=== PATIENT | female | born 1960 | race Caucasian/White ===

== ENCOUNTER 2021-09-24 10:25 | Outpatient (CLI) | payer MEDICARE, MEDICAID, SELFPAY ==
[2021-09-24 14:25] LABS: Chloride* 104 mmol/L (96-114); Potassium* 4.5 mmol/L (3.6-5.1); Sodium* 139 mmol/L (135-149)
[2021-09-24 14:28] LABS: Alanine Aminotransferase* 22 U/L (4-35); Alkaline Phosphatase* 132 U/L (40-150); Aspartate Amino Transferase* 22 U/L (12-35); Bilirubin Total* 0.4 mg/dL (0.1-1.5); Blood Urea Nitrogen* 24 mg/dL (7-30); Carbon Dioxide* 29 mmol/L (20-32); Creatinine* 0.9 mg/dL (0.5-1.5); Estimated Glomerular Filt Rate 73 ml/min; Glucose* 119 mg/dL (60-115)
[2021-09-24 14:29] LABS: Calcium* 9.3 mg/dL (8.4-10.6)
[2021-09-26 04:38] LABS: LDL Cholesterol, Direct 123 mg/dL (0-129)
== END 2021-09-24 10:26 | disposition home or self-care (01) ==
PROVIDERS: PCP Physician Assistant Medical; Visit Provider Family Medicine
DX: E11.9 Type 2 diabetes mellitus without complications (principal); E78.5 Hyperlipidemia, unspecified; Z01.818 Encounter for other preprocedural examination
CPT/HCPCS: 80053; 83721

== ENCOUNTER 2021-09-28 09:15 | Outpatient (CLI) | payer MEDICARE, MEDICAID, SELFPAY ==
[2021-09-28 10:06] LABS: SARS PCR* Negative SARS-CoV-2 (Negative)
== END 2021-09-28 09:16 | disposition home or self-care (01) ==
LOC: FRMREF 09:30
PROVIDERS: PCP Physician Assistant Medical; Visit Provider Obstetrics & Gynecology
DX: Z20.822 Contact with and (suspected) exposure to COVID-19 (principal); Z01.812 Encounter for preprocedural laboratory examination
CPT/HCPCS: 87635

== ENCOUNTER 2021-09-29 07:33 | Day surgery (SDC) | payer MEDICARE, MEDICAID, SELFPAY ==
[2021-09-29] MEDS: LACTATED RINGERS 1000 ML 1,000 ML 100 ML IV (07:30)
[2021-09-29 07:45] VITALS: BP 182/79; PULSE 89; RESP 16; TEMP 36.6; O2SAT 99; BMI 48.6
--- NOTE | 2021-09-29 08:51 | PM.PROC ---
Procedure Note Time Seen by Provider: 08:51 Date Seen: 09/29/21 Date of procedure: 09/29/21 Will [facility] bill your pro fee for this procedure?: Yes Procedure: Preoperative diagnosis: 60-year-old nulligravid woman with history of endometrioid adenocarcinoma status post hysterectomy. Here for exam under anesthesia as she does not tolerate pelvic exams in the office. Postoperative diagnosis: Same Procedure: Pelvic exam under anesthesia Anesthesia: Mac Surgeon: Destini Cortez Outdoor [employer]ursuits Instructor: Not applicable IV Fluid: 200ml Estimated blood loss: 0 mL Findings: Speculum: Atrophic vaginal tissue with decreased Rugae c/w her postmenopausal state, no lesions, masses, bleeding or abnormal discharge identified. Bimanual exam: no nodularity via vaginal and rectovaginal exam. Normal exam. Procedure: Clean was taken to the operating room where conscious sedation was found be adequate. She was placed in the dorsal lithotomy position. A sterile, bivalve, metal speculum was placed in the vagina to visualize the vaginal cuff and vaginal romero which appeared normal and somewhat atrophic consistent with her menopausal state. No lesions or masses were visualized. A vaginal and rectal vaginal exam were performed with findings above. The patient was awakened from anesthesia and taken to the recovery room in stable condition. Surgeon: Destini Cortez MD
[2021-09-29 09:22] VITALS: BP 127/78; PULSE 82; RESP 16; TEMP 36.1; O2SAT 96
--- NOTE | 2021-09-29 09:22 | W.ANESCHARGE ---
Anesthesia Charges Start Date/Time Anesthesia Start Date: 09/29/21 Anesthesia Start Time: 09:05 Stop Date/Time Anesthesia Stop Date: 09/29/21 Anesthesia Stop Time: : Summary Emergency: No
[2021-09-29 09:30] VITALS: BP 118/85; PULSE 92; RESP 16; O2SAT 96
[2021-09-29 09:45] VITALS: BP 133/79; PULSE 86; RESP 16; O2SAT 96
--- NOTE | 2021-09-29 10:41 | W.ANESCHARGE ---
Anesthesia Charges Start Date/Time Anesthesia Start Date: 09/29/21 Anesthesia Start Time: 09:05 Stop Date/Time Anesthesia Stop Date: 09/29/21 Anesthesia Stop Time: : Summary Emergency: No
== END 2021-09-29 10:14 | disposition home or self-care (01) ==
PROVIDERS: PCP Physician Assistant Medical; Visit Provider Obstetrics & Gynecology
PROC: (CPT 57410; principal; 2021-09-29 08:50)
DX: N95.2 Postmenopausal atrophic vaginitis (principal); Z85.42 Personal history of malignant neoplasm of other parts of uterus; Z90.710 Acquired absence of both cervix and uterus
CPT/HCPCS: 57410; 940; J2704; J7120

== ENCOUNTER 2021-10-29 13:51 | Outpatient (CLI) | payer MEDICARE, MEDICAID, SELFPAY ==
[2021-10-29 22:02] LABS: Uric Acid* 6.4 mg/dL (2.2-8.4)
[2021-10-29 22:07] LABS: Microalbumin Urine < 1 mg/dL
[2021-10-29 22:16] LABS: Creatinine Urine 33.3 mg/dL; Microalbumin Creatinine Ratio 30 mg/g (0-30)
== END 2021-10-29 13:52 | disposition home or self-care (01) ==
PROVIDERS: PCP Physician Assistant Medical; Visit Provider Internal Medicine Nephrology
DX: N18.1 Chronic kidney disease, stage 1 (principal); I10 Essential (primary) hypertension; E66.01 Morbid (severe) obesity due to excess calories; E11.9 Type 2 diabetes mellitus without complications
CPT/HCPCS: 82043; 82310; 82570; 83970; 84550

== ENCOUNTER 2021-11-02 11:50 | Outpatient (CLI) | payer MEDICARE, MEDICAID, SELFPAY | END 2021-11-02 11:51 | disposition home or self-care (01) | LOC: FRMREF 11:50 | PROVIDERS: PCP Physician Assistant Medical; Visit Provider Internal Medicine Nephrology | DX: E11.9 Type 2 diabetes mellitus without complications (principal); I10 Essential (primary) hypertension; E78.5 Hyperlipidemia, unspecified; E66.01 Morbid (severe) obesity due to excess calories | CPT/HCPCS: 82310; 83970 ==

== ENCOUNTER 2021-11-03 13:34 | Outpatient (CLI) | payer MEDICARE, MEDICAID, SELFPAY ==
[2021-11-12 13:47] LABS: Hours Collected 24 hr; Total Volume 2800 mL; Urine Supersaturation Interp Normal; pH, Urine 6.67 (5.00-7.50)
== END 2021-11-03 13:35 | disposition home or self-care (01) ==
PROVIDERS: PCP Physician Assistant Medical; Visit Provider Internal Medicine Nephrology
DX: E11.22 Type 2 diabetes mellitus with diabetic chronic kidney disease (principal); N18.1 Chronic kidney disease, stage 1; I10 Essential (primary) hypertension; E78.5 Hyperlipidemia, unspecified
CPT/HCPCS: 82340; 82436; 82507; 83735; 83945; 83986; 84105; 84133; 84300; 84392; 84560

== ENCOUNTER 2021-12-10 13:44 | Outpatient (CLI) | payer MEDICARE, MEDICAID, SELFPAY ==
--- OUTSIDE RECORDS SUMMARY | 2021-12-10 13:52 | XMS_ITS | Encounter Summary ---
:1960 Author Organization [facility] Address [address] [place] [address] Care Team Providers Name Role Phone Unavailable Primary Care Provider Unavailable Reason for Referral Specialty Diagnoses / Procedures Referred By Contact Refer red To Contact Kala Langford M.D. 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 [address] [place], [place] [phone] (Wo rk) Social History Tobacco Use Types Packs/Day Years Used Date Smoking Tobacco: Never Assessed Sex Assigned at Date Recorded Not on file documented as of this encounter Plan of Treatment Scheduled Referrals Name Type Priority Associated Order Schedule Diagnoses Covid immunization Outpatient Referral Routine Ex pected: office visit Booster 021 (Approximate), Expires: 12/16/2021 documented as of this encounter Visit Diagnoses Not on filedocumented in this encounter
--- OUTSIDE RECORDS SUMMARY | 2021-12-10 13:52 | XMS_ITS | Encounter Summary ---
:1960 Author Organization [facility] Address [address] [place] [address] Care Team Providers Name Role Phone Unavailable Primary Care Provider Unavailable Reason for Visit Appointment Request (Routine) - Closed Specialty Diagnoses / Procedures Referred By Contact Refer red To Contact Nephrology and Hypertension Referral ID Status Reason Start Date Expiration Date Visits Requ ested Visits Authorized [id number] Closed 10/30/2021 10/30/2022 1 Encounter Details Date Type Department Care Team Description 11/10/2021 External Outreach Division of Sofi, Hyperti on And Chronic Kidney Disease Stage 1 (Primary Dx); Nephrology and Jun Peguero Jr., Diabetes [place] litus Type 2 (HCC); Hypertension in [place]. Urolithiasis; [place], [place] [address] [facility] Trisomy 21 (HCC) [address] [place] [phone] Social History Tobacco Use Types Packs/Day Years Used Date Smoking Tobacco: Never Assessed Sex Assigned at Date Recorded Not on file documented as of this encounter Last Filed Vital Signs Vital Sign Reading Time Taken Comments Blood Pressure 138/72 11/10/2021 10:25 AM CDT Pulse 76 11/10/2021 10:25 AM CDT Temperature - - Respiratory Rate - - Oxygen Saturation - - Inhaled Oxygen Concentration - - Weight 121 kg (266 lb 12.1 oz) 11/10/2021 10:25 AM CDT Height 158.7 cm (5' 2.48) 11/10/2021 10:25 AM CDT Body Mass Index 48.04 11/10/2021 10:25 AM CDT documented in this encounter Progress Notes Jun Farah Jr., D.O. - 11/10/2021 10:30 AM CDT Referring Provider: No primary care provider on file. SUBJECTIVE REASON FOR VISIT [place] [facility] Follow-up regards CKD stage 1, hypertension, urolithiasis, diabetes mellitus HISTORY OF PRESENT ILLNESS Ms. Ibarar is a 60 y.o. female who presents with the above issue She has done well, she did pass a very small stone 2 weeks ago which caused some left-sided flank pain for approximately 2 hours. No hematuria. She feels absolutely well now without any complaints. No hypoglycemic events in her hemoglobin A1c is acceptable. No orthostatic issues and no lower extremity swelling, blood pressure is 120/80. She is had no issues with skin lesions, or other constitutional complaints. History reviewed. No pertinent past medical history. Current Outpatient Medications: hydroCHLOROthiazide (HYDRODIURIL) 12.5 mg tablet, Take 1 tablet (12.5 mg total) by mouth daily., Disp: 90 tablet, Rfl: 3 acetaminophen (TYLENOL) 500 mg tablet, Take 2 tablets by mouth 2 (two) times a day as needed. Pain/fever, Disp: , Rfl: allopurinoL (ZYLOPRIM) 100 mg tablet, TAKE 1 TABLET BY MOUTH ONE TIME DAILY, Disp: 90 tablet, Rfl: 3 gabapentin (NEURONTIN) 100 mg capsule, Take 1 capsule (100 mg total) by mouth 2 (two) times a day.,Disp: 180 capsule, Rfl: 3 metFORMIN (GLUCOPHAGE) 500 mg tablet, Take 0.5 tablets (250 mg total) by mouth daily with breakfast., Disp: 45 tablet, Rfl: 3 omega-3 fatty acids/fish oil (OMEGA 3 FISH OIL ORAL), Take 1 capsule by mouth daily. 1000mg capsule, Disp: , Rfl: omeprazole (PriLOSEC) [address] capsule, TAKE 1 CAPSULE BY MOUTH TWICE DAILY, Disp: 180 capsule, Rfl: 3 potassium citrate (UROCIT-K) 10 mEq (1,080 mg) ER tablet, Take 2 tablets (20 mEq total) by mouth 2 (two) times a day with meals., Disp: 360 tablet, Rfl: 3 sucralfate (CARAFATE) 1 gram tablet, Take 1 tablet (1 g total) by mouth every 6 (six) hours., Disp:360 tablet, Rfl: 3 tamsulosin (FLOMAX) 0.4 mg 24 hr capsule, Take 1 capsule by mouth daily. use on at first sign of flank pain for easing passage of kidney stones, Disp: , Rfl: REVIEW OF SYSTEMS All other systems reviewed and are negative. OBJECTIVE BP 138/72 Pulse 76 Ht 158.7 cm Wt 121 kg BMI 48.04 kg/m?? PHYSICAL EXAMINATION General: Awake alert oriented HEENT: FADI, EOMI, Mucous membranes moist, no oral lesions Neck: No Masses, No Bruits Lungs: Clear to ascultation Heart: Regular Rate and Rhythm, No ectopy Murmurs or rubs Abdomen: Soft, Non-tender Extremities: No cyanosis, No clubbing: No edema Neuro: Cranial Nerves intact, Gait is normal, strength grossly normal Skin: no suspicious lesions identified Psychiatric: Normal affect DIAGNOSTICS Note serum creatinine 1.0 mg/dL, microalbumin to creatinine ratio 30 milligrams/gram, 24 hour urine super saturation study reviewed ASSESSMENT / PLAN #1 Hypertension And Chronic Kidney Disease Stage 1 Goal blood pressure has been achieved, she is avoiding sodium, staying active. We will continue withher current antihypertensive regimen. She will avoid NSAIDs and Holloway 2 inhibitors. #2 Diabetes Mellitus Type 2 (HCC) Excellent glycemic control. #3 Urolithiasis This appears to be metabolically active and surgically inactive currently. We will continue with thefollowing recommendations: 1. Goal fluid intake of 1 gal per day 2. Low-sodium diet 3. Continue on Urocit-K, 1 tablet daily 4. Tamsulosin refilled to utilized if she has stone activity 5. Low oxalate diet #4 Trisomy 21 (HCC) No issues, congratulated her on her 60th birthday coming up tomorrow. Total time: 30 minutes Counseling Time: 20 minutes Jun Farah Jr., D.O. documented in this encounter Plan of Treatment Not on filedocumented as of this encounter Visit Diagnoses Diagnosis Hypertension And Chronic Kidney Disease Stage 1 - Primary Diabetes Mellitus Type 2 (HCC) Urolithiasis Trisomy 21 (HCC) documented in this encounter
--- OUTSIDE RECORDS SUMMARY | 2021-12-10 13:52 | XMS_ITS | Encounter Summary ---
:1960 Author Organization [facility] Address [address] [place] [address] Care Team Providers Name Role Phone Unavailable Primary Care Provider Unavailable Reason for Visit Reason Comments Med Refill Encounter Details Date Type Department Care Team Description 12/27/2020 Refill Division of Nephrology and Soif, Axel Peguero Jr., Med [facility]ill [facility] [address] [facility] [address] [place] [address] [place] [address] [phone] Social History Tobacco Use Types Packs/Day Years Used Date Smoking Tobacco: Never Assessed Sex Assigned at Date Recorded Not on file documented as of this encounter Plan of Treatment Not on filedocumented as of this encounter Visit Diagnoses Not on filedocumented in this encounter
--- OUTSIDE RECORDS SUMMARY | 2021-12-10 13:52 | XMS_ITS | Encounter Summary ---
:1960 Author Organization [facility] Address [address] [place] [address] Care Team Providers Name Role Phone Unavailable Primary Care Provider Unavailable Reason for Visit Reason Comments Med Refill Encounter Details Date Type Department Care Team Description 02/07/2021 Refill Division of Nephrology and Sofi, xAel Peguero Jr., Med Refill [facility] [address] [facility] [address] [place] [address] [place] [address] [phone] Social History Tobacco Use Types Packs/Day Years Used Date Smoking Tobacco: Never Assessed Sex Assigned at Date Recorded Not on file documented as of this encounter Plan of Treatment Not on filedocumented as of this encounter Visit Diagnoses Not on filedocumented in this encounter
--- OUTSIDE RECORDS SUMMARY | 2021-12-10 13:52 | XMS_ITS | Encounter Summary ---
:1960 Author Organization [facility] Address [address] [place] [address] Care Team Providers Name Role Phone Unavailable Primary Care Provider Unavailable Encounter Details Date Type Department Care Team Description 12/16/2020 Orders Only RST PCP HL[facility] Kala Childers M.D. [address] [place], [place] [phone] (Wo rk) Social History Tobacco Use Types Packs/Day Years Used Date Smoking Tobacco: Never Assessed Sex Assigned at Date Recorded Not on file documented as of this encounter Plan of Treatment Not on filedocumented as of this encounter Visit Diagnoses Not on filedocumented in this encounter
--- OUTSIDE RECORDS SUMMARY | 2021-12-10 13:52 | XMS_ITS | Encounter Summary ---
:1960 Author Organization [facility] Address [address] [place] [address] Care Team Providers Name Role Phone Unavailable Primary Care Provider Unavailable Encounter Details Date Type Department Care Team Description 12/19/2020 Orders Only RST PCP HLTH Kala Childers M.D. [address] [place], [place] [phone] (Wo rk) Social History Tobacco Use Types Packs/Day Years Used Date Smoking Tobacco: Never Assessed Sex Assigned at Date Recorded Not on file documented as of this encounter Plan of Treatment Not on filedocumented as of this encounter Visit Diagnoses Not on filedocumented in this encounter
--- OUTSIDE RECORDS SUMMARY | 2021-12-10 13:52 | XMS_ITS | Encounter Summary ---
:1960 Author Organization [facility] Address [address] [place] [address] Care Team Providers Name Role Phone Unavailable Primary Care Provider Unavailable Encounter Details Date Type Department Care Team Description 05/19/2021 Orders Only Division of Nephrology and Axel Farah Hypertension in [facility], D.O. [place] [address] [facility] [address] [place] [phone] (Wo rk) Social History Tobacco Use Types Packs/Day Years Used Date Smoking Tobacco: Never Assessed Sex Assigned at Date Recorded Not on file documented as of this encounter Plan of Treatment Not on filedocumented as of this encounter Visit Diagnoses Not on filedocumented in this encounter
--- OUTSIDE RECORDS SUMMARY | 2021-12-10 13:52 | XMS_ITS | Encounter Summary ---
:1960 Author Organization [facility] Address [address] [place] [address] Care Team Providers Name Role Phone Unavailable Primary Care Provider Unavailable Reason for Visit Reason Comments Med Refill Encounter Details Date Type Department Care Team Description 11/10/2021 Refill Division of Nephrology and Colleen Waddell, Med [place] Ph[place]D. [address] [place] [address] [place] [address] [phone] Social History Tobacco Use Types Packs/Day Years Used Date Smoking Tobacco: Never Assessed Sex Assigned at Date Recorded Not on file documented as of this encounter Plan of Treatment Not on filedocumented as of this encounter Visit Diagnoses Not on filedocumented in this encounter
--- OUTSIDE RECORDS SUMMARY | 2021-12-10 13:52 | XMS_ITS | Encounter Summary ---
:1960 Author Organization [facility] Address [address] [place] [address] Care Team Providers Name Role Phone Unavailable Primary Care Provider Unavailable Reason for Visit Reason Comments Med Refill Encounter Details Date Type Department Care Team Description 02/10/2021 Refill Division of Nephrology and Colleen Waddell, Med [place]. [address] [place] [address] [place] [address] [phone] Social History Tobacco Use Types Packs/Day Years Used Date Smoking Tobacco: Never Assessed Sex Assigned at Date Recorded Not on file documented as of this encounter Miscellaneous Notes Telephone Encounter - Alayna Berry - 02/10/2021 7:54 AM CST Medication refill request for Metformin HCI 500 mg tab. Forwarded to nurses. 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
--- OUTSIDE RECORDS SUMMARY | 2021-12-10 13:52 | XMS_ITS | Clinical Summary ---
:1960 Author Organization [facility] Address [address] [place] [address] Care Team Providers Name Role Phone Unavailable Primary Care Provider Unavailable Source Comments Patient records contain information from all sites at [facility]. For routine questions regarding patient records, call [phone] during business hours, M-F 8:00 AM - 5:00 PM Central Time. Record requests for emergency care only can be directed to [phone] at any time.[facility] Allergies No known active allergies Medications Medication Sig Dispensed Refills Start End Date Status Date acetaminophen (TYLENOL) Take 2 0 Active 500 mg tablet tablets by 3 mouth 2 (two) times a day as needed. Pain/fever omega-3 fatty acids/fish Take 1 0 Active oil (OMEGA 3 FISH OIL capsule by 3 ORAL) mouth daily. 1000mg capsule allopurinoL (ZYLOPRIM) TAKE 1 90 tablet 3 Active 100 mg tablet TABLET BY 1 MOUTH ONE TIME DAILY omeprazole (PriLOSEC) 20 TAKE 1 180 capsule [address] capsule CAPSULE BY 2 MOUTH TWICE DAILY metFORMIN (GLUCOPHAGE) Take 0.5 45 tablet 3 Active 500 mg tablet tablets 2 (250 mg total) by mouth daily with breakfast. hydroCHLOROthiazide Take 1 90 tablet 3 05/20/19 Active (HYDRODIURIL) 12.5 mg tablet 2 23 tablet (12.5 mg total) by mouth daily. potassium citrate Take 2 90 tablet 3 Ac tive (UROCIT-K) 10 mEq (1,080 tablets (20 2 mg) ER tablet mEq total) by mouth daily with breakfast. tamsulosin (FLOMAX) 0.4 Take 1 10 capsule 2 Active mg 24 hr capsule capsule 2 (0.4 mg total) by mouth daily. use on at first sign of flank pain for easing passage of kidney stones gabapentin (NEURONTIN) Take 1 180 capsule 3 11/12 Active 100 mg capsule capsule 2 23 (100 mg total) by mouth 2 (two) times a day. sucralfate (CARAFATE) 1 Take 1 360 tablet 3 11/19 gram tablet tablet (1 g 1 22 total) by mouth every 6 (six) hours. gabapentin (NEURONTIN) Take 1 180 capsule 3 11/12 Discontinued 100 mg capsule capsule 1 22 (100 mg total) by mouth 2 (two) times a day. Active Problems Problem Noted Date Trisomy 21 11/10/2021 Hypertension And Chronic Kidney Disease Stage 1 2017 Urolithiasis 06/29/2017 Diabetes Mellitus Type 2 12/17/2015 Encounters Date Type Specialty Care Team Description 11/10/2021 External Outreach Nephrology and Jun Farah rtension And Chronic Kidney Disease Stage 1 (Primary Dx); Hypertension Sudhir Donovan[facility]. [facility] Urolithiasis; Trisomy 21 (HCC ) 11/10/2021 Refill Nephrology and Hayden Osuna, Med Refil l Mark Macias M.D., Ph.D. from Last 3 Months Social History Tobacco Use Types Packs/Day Years Used Date Smoking Tobacco: Never Assessed Sex Assigned at Date Recorded Not on file Last Filed Vital Signs Vital Sign Reading Time Taken Comments Blood Pressure 138/72 11/10/2021 10:25 AM CDT Pulse 76 11/10/2021 10:25 AM CDT Temperature - - Respiratory Rate 16 06/16/2016 1:50 PM Vital sig n result CDT from Clinical No christopher. Oxygen Saturation - - Inhaled Oxygen - - Concentration Weight 121 kg (266 lb 12.1 11/10/2021 10:25 oz) AM CDT Height 158.7 cm (5' 2.48) 11/10/2021 10:25 AM CDT Body Mass Index 48.04 11/10/2021 10:25 AM CDT Plan of Treatment Health Maintenance Due Date Last Done Comments CT Colonography 1960 Cervical Cancer Screening 1960 Cologuard 1960 Colonoscopy 1960 Colorectal Cancer Screening 1960 Creatinine Level 1960 Diabetic Office Visit with Foot 1960 Exam Dilated Eye Exam 1960 FIT 1960 HIV Screening 1960 Hemoglobin A1C 1960 Hepatitis C Screening 1960 Lipid (Cholesterol) Screening 1960 Mammogram 1960 Sodium Level 1960 Urine Albumin 1960 Hepatitis B Vaccines (1 of 3 - 2020 Risk 3-dose series) Depression Screening (Annual 02/07/2021 PHQ-2) Potassium Level 09/15/2021 09/15/2020 Pneumococcal vaccine (0-64 years) 12/16/2021 12/16/2020, (2 - PCV) Office Visit for Blood Pressure 11/10/2022 11/10/2021 Check / Re-check DTaP,Tdap,and Td Vaccines (2 - Td 04/20/2027 04/19/2017, or Tdap) Zoster Vaccines Completed 10/23/2017, 08/07/2017 COVID-19 Vaccine Completed 10/20/2021, 05/10/2021, 12/05/2020, Additional history exists Influenza Vaccine Completed 10/20/2021, 10/28/2020, 10/22/2019, Additional history exists Insurance Payer Benefit Plan Subscriber ID Effective Phone Address Typ e / Group Dates MEDICARE MEDICARE A [id number] 1990-Prese [address] [place] [address] [facility] MEDICAID [id number] 2012-Prese [phone] [place] [id number] [employer] [address] [address] [place] [address]
--- OUTSIDE RECORDS SUMMARY | 2021-12-10 13:52 | XMS_ITS | Encounter Summary ---
:1960 Author Organization [facility] Address [address] [place] [address] Care Team Providers Name Role Phone Unavailable Primary Care Provider Unavailable Reason for Visit Reason Comments Med Refill Encounter Details Date Type Department Care Team Description 02/08/2021 Refill Division of Nephrology and Sofi, Axel Peguero Jr., Med Refill [facility] [address] [facility] [address] [place] [address] [place] [address] [phone] Social History Tobacco Use Types Packs/Day Years Used Date Smoking Tobacco: Never Assessed Sex Assigned at Date Recorded Not on file documented as of this encounter Plan of Treatment Not on filedocumented as of this encounter Visit Diagnoses Not on filedocumented in this encounter
--- OUTSIDE RECORDS SUMMARY | 2021-12-10 13:52 | XMS_ITS | Encounter Summary ---
:1960 Author Organization [facility] Address [address] [place] [address] Care Team Providers Name Role Phone Unavailable Primary Care Provider Unavailable Reason for Visit Appointment Request (Routine) - Closed Specialty Diagnoses / Procedures Referred By Contact Refer red To Contact Nephrology and Hypertension Referral ID Status Reason Start Date Expiration Date Visits Requ ested Visits Authorized [id number] Closed 04/30/2021 04/30/2022 1 Encounter Details Date Type Department Care Team Description 05/19/2021 External Outreach Division of Akira Farah on And Chronic Kidney Disease Stage 1 (Primary Dx); Nephrology and Jun Peguero Jr., Urolithiasis ; Hypertension in [place] Diabetes Mellitus Type 2 (HCC) [place], [place] [address] [facility] [address] [place] [address] [phone] Social History Tobacco Use Types Packs/Day Years Used Date Smoking Tobacco: Never Assessed Sex Assigned at Date Recorded Not on file documented as of this encounter Progress Notes Jun Farah Jr., D.O. - 05/19/2021 10:00 AM CDT Please see scanned in note under document viewer tab for the [facility] outreach visit from this date. Medical Problems Diagnosis List Diabetes Mellitus Type 2 (HCC) Urolithiasis Hypertension And Chronic Kidney Disease Stage 1 documented in this encounter Plan of Treatment Not on filedocumented as of this encounter Visit Diagnoses Diagnosis Hypertension And Chronic Kidney Disease Stage 1 - Primary Urolithiasis Diabetes Mellitus Type 2 (HCC) documented in this encounter
--- OUTSIDE RECORDS SUMMARY | 2021-12-10 13:53 | XMS_ITS | Clinical Summary ---
:1960 Author Organization [facility] Address [address] [place] [address] Care Team Providers Name Role Phone Vidya Arredondo PA-C Primary Care Provider Allergies Active Allergy Reactions Severity Noted Date Comments Propoxyphene 07/28/2020 Medications Medication Sig Dispensed Refills Start Date End Date Status allopurinol (ZYLOPRIM) Take 100 mg by 0 Active 100 MG tablet mouth every morning amoxicillin (AMOXIL) 500 Take 2,000 mg by 0 Active MG tablet mouth daily as needed (1 hour prior to dental appointments) gabapentin (NEURONTIN) Take 100 mg by 0 Active 100 MG capsule mouth 2 times daily glipiZIDE (GLUCOTROL) 5 Take 5 mg by 0 Active MG tablet mouth 2 times daily (before meals) hydrochlorothiazide Take 12.5 mg by 0 Active (MICROZIDE) 12.5 MG mouth every capsule morning metFORMIN (GLUCOPHAGE) Take 250 mg by 0 Active 500 MG tablet mouth every morning (1/2 x 500mg) omeprazole (PRILOSEC) 20 Take 20 mg by [address] capsule mouth daily as needed (pt taking differently than prescribed; RX states 20mg twice daily) potassium citrate Take 10 mEq by 0 Active (UROCIT-K) 10 MEQ (1080 mouth every MG) CR tablet morning tamsulosin (FLOMAX) 0.4 Take 0.4 mg by 0 Active MG capsule mouth daily as needed sucralfate (CARAFATE) 1 Take 1 g by mouth 0 Active GM tablet 4 times daily senna (SENOKOT) 8.6 MG Take 1-3 tablets 30 tablet 0 09/15/2020 Active tabletIndications: by mouth 2 times Endometrial carcinoma daily as needed (H) for constipation Active Problems Problem Noted Date Endometrial carcinoma 07/28/2020 Down's syndrome 07/28/2020 Morbid obesity with BMI of 45.0-49.9, adult 07/28/2020 Diabetes mellitus type II, controlled 07/28/2020 GERD (gastroesophageal reflux disease) 07/28/2020 Gout 07/28/2020 Essential hypertension 07/28/2020 Hyperlipidemia 07/28/2020 Chronic back pain 07/28/2020 Social History Tobacco Use Types Packs/Day Years Used Date Smoking Tobacco: Never Smokeless Tobacco: Never Alcohol Use Standard Drinks/Week Comments Never 0 (1 standard drink = 0.6 oz pure alcoho l) Alcohol Habits Answer Date Recorded How often do you have a drink containing alcohol? Never 09/15/2020 How many drinks containing alcohol do you have on a typical Not asked day when you are drinking? How often do you have six or more drinks on one occasion? No t asked Sex Assigned at Date Recorded Not on file Last Filed Vital Signs Vital Sign Reading Time Taken Comments Blood Pressure 133/71 09/15/2020 11:50 AM CDT Pulse 80 09/15/2020 11:00 AM CDT Temperature 36.1 ??C (97 ??F) 09/15/2020 11:00 AM CDT Respiratory Rate 20 09/15/2020 11:50 AM CDT Oxygen Saturation 99% 09/15/2020 11:50 AM CDT Inhaled Oxygen Concentration - - Weight 119.2 kg (262 lb 11.2 oz) 09/15/2020 7:26 AM CDT Height 157.5 cm (5' 2) 09/15/2020 7:26 AM CDT Body Mass Index 48.05 09/15/2020 7:26 AM CDT Plan of Treatment Health Maintenance Due Date Last Done Comments A1C 1960 ADVANCE CARE PLANNING 1960 ANNUAL REVIEW OF HM ORDERS 1960 CT COLONOGRAPHY 1960 DIABETIC FOOT EXAM 1960 EYE EXAM 1960 FIT-DNA (Cologuard) 1960 FIT 1960 FLEX SIG 1960 LIPID 1960 MICROALBUMIN 1960 COLONOSCOPY 1970 COLORECTAL CANCER SCREENING 1970 HIV SCREENING 11/12/1975 HEPATITIS C SCREENING 1978 MEDICARE ANNUAL WELLNESS 1978 VISIT PAP 1981 MAMMO SCREENING 11/25/2012 11/25/2010, 11/19/2009, 11/13/2008, Additional history exists BMP 05/05/2018 05/05/2017 COVID-19 Vaccine (3 - 07/09/2020 05/14/2020, 04/17/2020 Booster for Moderna series) PHQ-2 (once per calendar 02/07/2021 year) INFLUENZA VACCINE (#1) 2021 10/22/2019, 10/22/2019, 10/08/2018, Additional history exists Pneumococcal Vaccine: 2025 05/08/2014, 05/07/2014, Pediatrics (0 to 5 Years) 10/22/2012 and At-Risk Patients (6 to 64 Years) (3 - PPSV23 if available, else PCV20) DTAP/TDAP/TD IMMUNIZATION 04/20/2027 04/19/2017, 05/01/2007 , (2 - Td or Tdap) 05/01/2007, Additional history exists ZOSTER IMMUNIZATION Completed 10/23/2017, 08/07/2017 IPV IMMUNIZATION Aged Out No longer eligi ble based on patient 's age to complete this topic MENINGITIS IMMUNIZATION Aged Out No longe r eligible based on patient 's age to complete this topic Insurance Payer Benefit Plan / Subscriber ID Effective Phone Address T ype Group Dates MEDICARE MEDICARE [id number] 1986-Prese [phone] ATTN TRAC[place]I [place] Medicare nt 40 [address] [place] [address] [place] [id number] 2020-Prese [phone] [address] Medicaid nt [address] [place] [address] Care Teams Paraffiner Relationship Specialty Start Date End Date Vidya Arredondo PA-C PCP - General 08/25/20 [facility] [address] [place] [address]
--- OUTSIDE RECORDS SUMMARY | 2021-12-10 13:53 | XMS_ITS | Encounter Summary ---
:1960 Author Organization [facility] Address [address] [place] [address] Care Team Providers Name Role Phone Vidya Arredondo PA-C Primary Care Provider Encounter Details Date Type Department Care Team Description 09/15/2020 Travel Social History Tobacco Use Types Packs/Day Years [...] Assigned at Date Recorded Not on file COVID-19 Exposure Response Date Recorded In the last month, have you been in contact with No / Unsure 09/15/2020 7:17 AM CDT someone who was confirmed or suspected to have Coronavirus / COVID-19? documented as of this encounter Plan of Treatment Not on filedocumented as of this encounter Visit Diagnoses Not on filedocumented in this encounter Care Teams Install And Repair Technician Relationship Specialty Start Date End Date Vidya Arredondo PA-C PCP - General 08/25/20 [place] [address] [place] [address] documented as of this encounter
--- OUTSIDE RECORDS SUMMARY | 2021-12-10 13:53 | XMS_ITS | Encounter Summary ---
:1960 Author Organization [facility] Address [address] [place] [address] Care Team Providers Name Role Phone Unavailable Primary Care Provider Unavailable Reason for Visit Reason Comments Med Refill Encounter Details Date Type Department Care Team Description 02/22/2020 Refill Division of Nephrology and Sofi, Axel Peguero Jr., Med Refill [facility] [address] [facility] [address] [place] [address] [place] [address] [phone] Social History Tobacco Use Types Packs/Day Years Used Date Smoking Tobacco: Never Assessed Sex Assigned at Date Recorded Not on file documented as of this encounter Plan of Treatment Not on filedocumented as of this encounter Visit Diagnoses Not on filedocumented in this encounter
--- OUTSIDE RECORDS SUMMARY | 2021-12-10 13:53 | XMS_ITS | Encounter Summary ---
:1960 Author Organization [facility] Address [address] [place] [address] Care Team Providers Name Role Phone Unavailable Primary Care Provider Unavailable Reason for Visit Reason Comments Med Refill Encounter Details Date Type Department Care Team Description 03/26/2020 Refill Division of Nephrology and Sofi, Axel Peguero Jr., Med Refill [facility] [address] [facility] [address] [place] [address] [place] [address] [phone] Social History Tobacco Use Types Packs/Day Years Used Date Smoking Tobacco: Never Assessed Sex Assigned at Date Recorded Not on file documented as of this encounter Plan of Treatment Not on filedocumented as of this encounter Visit Diagnoses Not on filedocumented in this encounter
--- OUTSIDE RECORDS SUMMARY | 2021-12-10 13:53 | XMS_ITS | Encounter Summary ---
:[address] [facility] Address [address] [place] [address] Care Team Providers Name Role Phone Unavailable Primary Care Provider Unavailable Reason for Visit Appointment Request (Routine) - Closed Specialty Diagnoses / Procedures Referred By Contact Refer red To Contact Nephrology and Hypertension Referral ID Status Reason Start Date Expiration Date Visits Requ ested Visits Authorized [id number] Closed 12/27/2018 12/27/2019 1 Encounter Details Date Type Department Care Team Description 01/22/2019 External Outreach Division of Akira Farah on And Chronic Kidney Disease Stage 1 (Primary Dx); Nephrology and Jun Peguero Jr., Urolithiasis Hypertension in [place]O. [place], [place] [address] [facility] [address] [place] [phone] [phone] Social History Tobacco Use Types Packs/Day Years Used Date Smoking Tobacco: Never Assessed Sex Assigned at Date Recorded Not on file documented as of this encounter Progress Notes Jun Farah Jr., D.O. - 01/22/2019 4:00 PM CST Please see scanned in note under document viewer tab for the [facility] [place] outreach visit from this date. 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
--- OUTSIDE RECORDS SUMMARY | 2021-12-10 13:53 | XMS_ITS | Encounter Summary ---
:1960 Author Organization [facility] Address [address] [place] [address] Care Team Providers Name Role Phone Unavailable Primary Care Provider Unavailable Encounter Details Date Type Department Care Team Description 11/27/2020 Clinical Communication Division of Nephrology Hayden Osuna, and Hypertension in Hussein Macias, [place], [place] Ph.D. [address] [facility] [address] [place] [phone] [phone] Social History Tobacco Use Types Packs/Day Years Used Date Smoking Tobacco: Never Assessed Sex Assigned at Date Recorded Not on file documented as of this encounter Miscellaneous Notes Telephone Encounter - Colleen Rousseau M.D., Ph.D. - 11/27/2020 2:53 PM CDT I have reviewed CT scan report ordered to evaluate kidney stones burden. There is presence of one non obstructive kidney on her right kidney. I tried to call patient but unable to reach her. I will ask nursing staff at [facility] to communicate with patient. Jessika Osuna M.D., Ph.D. documented in this encounter Plan of Treatment Not on filedocumented as of this encounter Visit Diagnoses Not on filedocumented in this encounter
--- OUTSIDE RECORDS SUMMARY | 2021-12-10 13:53 | XMS_ITS | Encounter Summary ---
:1960 Author Organization [facility] Address [address] [place] [address] Care Team Providers Name Role Phone Unavailable Primary Care Provider Unavailable Reason for Visit Reason Comments Med Refill Encounter Details Date Type Department Care Team Description 12/14/2020 Refill Division of Nephrology and Colleen Waddell, Med Refill Hypertension in [place], Ph.D. [address] [place] [address] [place] [address] [phone] Social History Tobacco Use Types Packs/Day Years Used Date Smoking Tobacco: Never Assessed Sex Assigned at Date Recorded Not on file documented as of this encounter Plan of Treatment Not on filedocumented as of this encounter Visit Diagnoses Not on filedocumented in this encounter
--- OUTSIDE RECORDS SUMMARY | 2021-12-10 13:53 | XMS_ITS | Encounter Summary ---
:1960 Author Organization [facility] Address [address] [place] [address] Care Team Providers Name Role Phone Unavailable Primary Care Provider Unavailable Encounter Details Date Type Department Care Team Description 01/22/2019 Orders Only Division of Nephrology and Axel Farah Hypertension in [place], ., [place] [address] [facility] [address] [place] [address] [phone] (Wo rk) Social History Tobacco Use Types Packs/Day Years Used Date Smoking Tobacco: Never Assessed Sex Assigned at Date Recorded Not on file documented as of this encounter Plan of Treatment Not on filedocumented as of this encounter Visit Diagnoses Not on filedocumented in this encounter
--- OUTSIDE RECORDS SUMMARY | 2021-12-10 13:53 | XMS_ITS | Encounter Summary ---
:1960 Author Organization [facility] Address [address] [place] [address] Care Team Providers Name Role Phone Unavailable Primary Care Provider Unavailable Encounter Details Date Type Department Care Team Description 12/29/2018 Orders Only Division of Nephrology and Axel Farah Hypertension in [place], ., [place] [address] [facility] [address] [place] [address] [phone] (Wo rk) Social History Tobacco Use Types Packs/Day Years Used Date Smoking Tobacco: Never Assessed Sex Assigned at Date Recorded Not on file documented as of this encounter Plan of Treatment Not on filedocumented as of this encounter Visit Diagnoses Not on filedocumented in this encounter
--- OUTSIDE RECORDS SUMMARY | 2021-12-10 13:53 | XMS_ITS | Encounter Summary ---
:1960 Author Organization [facility] Address [address] [place] [address] Care Team Providers Name Role Phone Unavailable Primary Care Provider Unavailable Reason for Visit Appointment Request (Routine) - Closed Specialty Diagnoses / Procedures Referred By Contact Refer red To Contact Nephrology and Hypertension Referral ID Status Reason Start Date Expiration Date Visits Requ ested Visits Authorized [id number] Closed 11/07/2020 11/07/2021 1 1 Encounter Details Date Type Department Care Team Description 11/19/2020 External Outreach Division of Doretha Rousseau es Mellitus Type 2 (HCC); Nephrology and Hussein Macias, Hypertension And Chronic Kidney Disease Stage 1; Hypertension in Ph.D. Urolithiasis [place], [place] [address] [facility] [address] [place] [phone] [phone] Social History Tobacco Use Types Packs/Day Years Used Date Smoking Tobacco: Never Assessed Sex Assigned at Date Recorded Not on file documented as of this encounter Progress Notes Colleen Rousseau M.D., Ph.D. - 11/19/2020 1:00 PM CDT Please see scanned in note under document viewer tab for the [facility] [place] outreach visit from this date. documented in this encounter Plan of Treatment Not on filedocumented as of this encounter Visit Diagnoses Diagnosis Diabetes Mellitus Type 2 (HCC) Hypertension And Chronic Kidney Disease Stage 1 Urolithiasis documented in this encounter
--- OUTSIDE RECORDS SUMMARY | 2021-12-10 13:53 | XMS_ITS | Encounter Summary ---
:1960 Author Organization [facility] Address [address] [place] [address] Care Team Providers Name Role Phone Unavailable Primary Care Provider Unavailable Reason for Visit Appointment Request (Routine) - Closed Specialty Diagnoses / Procedures Referred By Contact Refer red To Contact Nephrology and Hypertension Referral ID Status Reason Start Date Expiration Date Visits Requ ested Visits Authorized [id number] Closed 06/08/2017 12/05/2017 1 Encounter Details Date Type Department Care Team Description 06/29/2017 External Outreach Division of Rosita Farah M ellitus Type 2 (HCC) (Primary Dx); Nephrology and Jun Peguero Jr., Urolithiasis Hypertension in [place], [place] [address] [facility] [address] [place] [phone] [phone] Social History Tobacco Use Types Packs/Day Years Used Date Smoking Tobacco: Never Assessed Sex Assigned at Date Recorded Not on file documented as of this encounter Progress Notes Jun Farah Jr., D.O. - 06/29/2017 4:30 PM CDT Please see documentation of the [facility] clinic visit on this date. documented in this encounter Plan of Treatment Not on filedocumented as of this encounter Visit Diagnoses Diagnosis Diabetes Mellitus Type 2 (HCC) - Primary Urolithiasis documented in this encounter
--- OUTSIDE RECORDS SUMMARY | 2021-12-10 13:53 | XMS_ITS | Encounter Summary ---
:1960 Author Organization [facility] Address [address] [place] [address] Care Team Providers Name Role Phone Unavailable Primary Care Provider Unavailable Reason for Visit Reason Comments Medication Question Encounter Details Date Type Department Care Team Description 03/28/2020 Clinical Communication Division of Fannie Grider ation Question Nephrology and M, R.N. Hypertension in [address] [place] [address] [address] [place] [address] [phone] Social History Tobacco Use Types Packs/Day Years Used Date Smoking Tobacco: Never Assessed Sex Assigned at Date Recorded Not on file documented as of this encounter Miscellaneous Notes Addendum Note - Fannie Grider RGera - 03/28/2020 9:21 AM CHARGE HAND Addended by: FANNIE GRIDER on: 03/28/2020 09:21 AM Modules accepted: Orders GE HAND Telephone Encounter - Fannie Grider R.N. - 03/28/2020 9:08 AM CST SUBJECTIVE CHIEF COMPLAINT / REASON FOR CALL Medication Question Information Discussed I received a prescription renewal for Gabapentin 100 mg. I called Negra to clarify the dose she is currently taking. She said she is taking 100 twice daily. I told we we are renewing Gabapentin, Allopurinol and Urocit. She also had questions about when she would receive her COVID vaccine. I told her that she would be notified by her primary care provider when it was her turn for the vaccine. PLAN Disposition/Recommendation: recommended continue engagement in self-management activities Information/Education: patient/caller able to teach back Caller agreeable to plan of care: yes The following references were used: nursing clinical judgement GE HAND documented in this encounter Plan of Treatment Not on filedocumented as of this encounter Visit Diagnoses Not on filedocumented in this encounter
--- OUTSIDE RECORDS SUMMARY | 2021-12-10 13:53 | XMS_ITS | Encounter Summary ---
:1960 Author Organization [facility] Address [address] [place] [address] Care Team Providers Name Role Phone Unavailable Primary Care Provider Unavailable Reason for Visit Reason Onset Date Comments Faxed Rx 01/19/2018 Encounter Details Date Type Department Care Team Description 01/19/2018 Clinical Communication Division of Nephrology Alayna Berry Faxed Rx and Hypertension in [place], [place] [phone] [address] [facility] (Work) [place] [address] Social History Tobacco Use Types Packs/Day Years Used Date Smoking Tobacco: Never Assessed Sex Assigned at Date Recorded Not on file documented as of this encounter Plan of Treatment Not on filedocumented as of this encounter Visit Diagnoses Not on filedocumented in this encounter
--- OUTSIDE RECORDS SUMMARY | 2021-12-10 13:53 | XMS_ITS | Encounter Summary ---
:1960 Author Organization [facility] Address [address] [place] [address] Care Team Providers Name Role Phone Unavailable Primary Care Provider Unavailable Reason for Visit Appointment Request (Routine) - Closed Specialty Diagnoses / Procedures Referred By Contact Refer red To Contact Nephrology and Hypertension Referral ID Status Reason Start Date Expiration Date Visits Requ ested Visits Authorized [id number] Closed 09/20/2018 09/20/2019 1 Encounter Details Date Type Department Care Team Description 10/04/2018 External Outreach Division of Akira Farah on And Chronic Kidney Disease Stage 1 (Primary Dx); Nephrology and Jun Peguero Jr., Urolithiasis ; Hypertension in [place] Diabetes Mellitus Type 2 (HCC) [place], [place] [address] [facility] [address] [place] [address] [phone] Social History Tobacco Use Types Packs/Day Years Used Date Smoking Tobacco: Never Assessed Sex Assigned at Date Recorded Not on file documented as of this encounter Progress Notes Jun Farah Jr., D.O. - 10/04/2018 11:30 AM CDT Please see scanned in note under document viewer tab for the [facility] [place] outreach visit from this date. documented in this encounter Plan of Treatment Not on filedocumented as of this encounter Visit Diagnoses Diagnosis Hypertension And Chronic Kidney Disease Stage 1 - Primary Urolithiasis Diabetes Mellitus Type 2 (HCC) documented in this encounter
--- OUTSIDE RECORDS SUMMARY | 2021-12-10 13:53 | XMS_ITS | Encounter Summary ---
:1960 Author Organization [facility] Address [address] [place] [address] Care Team Providers Name Role Phone Unavailable Primary Care Provider Unavailable Reason for Visit Appointment Request (Routine) - Closed Specialty Diagnoses / Procedures Referred By Contact Refer red To Contact Nephrology and Hypertension Referral ID Status Reason Start Date Expiration Date Visits Requ ested Visits Authorized [id number] Closed 12/12/2017 12/12/2018 1 Encounter Details Date Type Department Care Team Description 01/04/2018 External Outreach Division of Rosita Farah ellitus Type 2 (HCC) (Primary Dx); Nephrology and Jun Peguero Jr., Urolithiasis ; Hypertension in [place] Hypertension And Chronic Kidney Disease Stage 1 [place], [place] [address] [place] [address] [address] [place] [address] [phone] Social History Tobacco Use Types Packs/Day Years Used Date Smoking Tobacco: Never Assessed Sex Assigned at Date Recorded Not on file documented as of this encounter Progress Notes Jun Farah Jr., D.O. 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
--- OUTSIDE RECORDS SUMMARY | 2021-12-10 13:53 | XMS_ITS | Encounter Summary ---
:1960 Author Organization [facility] Address [address] [place] [address] Care Team Providers Name Role Phone Unavailable Primary Care Provider Unavailable Reason for Visit Appointment Request (Routine) - Closed Specialty Diagnoses / Procedures Referred By Contact Refer red To Contact Nephrology and Hypertension Referral ID Status Reason Start Date Expiration Date Visits Requ ested Visits Authorized [id number] Closed 06/29/2019 06/28/2020 1 1 Encounter Details Date Type Department Care Team Description 07/18/2019 External Outreach Division of Akira Farah on And Chronic Kidney Disease Stage 1 (Primary Dx); Nephrology and Jun Peguero Jr., Urolithiasis ; Hypertension in [place] Diabetes Mellitus Type 2 (HCC) [place], [place] [address] [facility] [address] [place] [address] [phone] Social History Tobacco Use Types Packs/Day Years Used Date Smoking Tobacco: Never Assessed Sex Assigned at Date Recorded Not on file documented as of this encounter Progress Notes Jun Farah Jr., D.O. - 07/18/2019 3:00 PM CDT Please see scanned in note under document viewer tab for the [facility] [place] outreach visit from this date. documented in this encounter Plan of Treatment Not on filedocumented as of this encounter Visit Diagnoses Diagnosis Hypertension And Chronic Kidney Disease Stage 1 - Primary Urolithiasis Diabetes Mellitus Type 2 (HCC) documented in this encounter
--- OUTSIDE RECORDS SUMMARY | 2021-12-10 13:53 | XMS_ITS | Encounter Summary ---
:1960 Author Organization [facility] Address [address] [place] [address] Care Team Providers Name Role Phone Unavailable Primary Care Provider Unavailable Encounter Details Date Type Department Care Team Description 05/29/2020 Clinical Communication Division of Nephrology Jun Farah and Hypertension elba Peguero Jr., D.O. [place], [place] [address] [facility] [address] [place] [address] [phone] Social History Tobacco Use Types Packs/Day Years Used Date Smoking Tobacco: Never Assessed Sex Assigned at Date Recorded Not on file documented as of this encounter Miscellaneous Notes Telephone Encounter - Jun Farah Jr., D.O. - 05/29/2020 12:12 PM CDT Phone call: Contacted her and arranged via email with [place] colleagues to send out the urine collection early. documented in this encounter Plan of Treatment Not on filedocumented as of this encounter Visit Diagnoses Not on filedocumented in this encounter
--- OUTSIDE RECORDS SUMMARY | 2021-12-10 13:53 | XMS_ITS | Clinical Summary ---
:1960 Author Organization [facility] [place] [address] Care Team Providers Name Role Phone Jessika Zheng Primary Care Provider Unavailable Allergies Active Allergy Reactions Severity Noted Date Comments Propoxyphene *Unknown - Pt Doesn't Remember 03/18/2010 Medications Medication Sig Dispensed Refills Start Date End Date Status hydrocodone-acetami Take 1 capsule by 0 Active nophen, 5-500 mg, mouth every 4 hours (LORCET-HD, if needed. Max STAGESIC-5) 5-500 acetaminophen dose: mg Cap 4000mg in 24 hrs. 1-2 caps tamsulosin (FLOMAX) Take 0.4 mg by mouth 0 Active 0.4 mg capsule once daily after a meal. gabapentin Take 100 mg by mouth 0 03/25/2010 Active (NEURONTIN) 100 mg 2 times daily. capsule DICLOFENAC Take 50 mg by mouth 2 0 03/18/2010 Active SODIUM/MISOPROSTOL times daily. (ARTHROTEC 50 ORAL) oxyCODONE-acetamino Take 1-2 tablets by 30 tablet 0 03/25/2010 Active phen, 5-325 mg, mouth every 4 hours (PERCOCET 5-325) if needed for Pain. 5-325 mg per tablet Active Problems Not on file Social History Tobacco Use Types Packs/Day Years Used Date Never Smoker Alcohol Use Standard Drinks/Week Comments No 0 (1 standard drink = 0.6 oz pure alcoho l) Sex Assigned at Date Recorded Not on file Obstetrics History Last Filed Vital Signs Vital Sign Reading Time Taken Comments Blood Pressure 121/77 03/25/2010 5:10 PM PLANT ECOLOGIST Pulse 98 03/25/2010 5:10 PM PLANT ECOLOGIST Temperature 36.2 ??C (97.2 ??F) 03/25/2010 3:55 PM PLANT ECOLOGIST Respiratory Rate 16 03/25/2010 5:10 PM PLANT ECOLOGIST Oxygen Saturation 93% 03/25/2010 5:10 PM PLANT ECOLOGIST Inhaled Oxygen Concentration - - Weight 118 kg (260 lb 2.3 oz) 03/25/2010 1:20 PM PLANT ECOLOGIST Height 160 cm (5' 2.99) 03/25/2010 1:20 PM PLANT ECOLOGIST Body Mass Index 46.09 03/25/2010 1:20 PM PLANT ECOLOGIST Plan of Treatment Health Maintenance Due Date Last Done Comments COVID-19 vaccine series (#1) 05/12/1961 Tdap 11/12/1971 Depression screening for age 12+ 1972 BMI (ht and wt on same day) for age 18+ 1978 Hepatitis C screening for age 18-79 1978 Tetanus booster 1980 Pap test for age 21-65 1981 Colonoscopy through age 75 2005 Lipids for age 45-75 2005 Mammogram for age 45-75 2005 Zoster (shingles) series for age 50+ (1 of 2) 2010 Influenza for age 50-64 10/08/2021 Medical Devices Implanted Type Area Reed Repairer Device Shelf Model / Identifier Expiration Serial / Date Lot Stent Uret [id number] Silhouette Xtraflo - [id number] Left: [employer] [id number] / Implanted: Qty: 1 on 03/18/2010 at [facility] [employer] Jf / [id number] Results Not on filefrom Last 3 Months Insurance Payer Benefit Plan / Subscriber ID Effective Dates Phone Addre ss Type Group MEDICARE PART A MEDICARE PART A [id number] 1986-Present ATTN: CLAIMS - HB USE ONLY HB ONLY [address] [place] [address] MEDICARE PART B MEDICARE PART B [id number] 1990-Present ATTN: CLAIMS - HB USE ONLY HB ONLY [address] [place] [address] MEDICARE - PB MEDICARE PB [id number] 1990-Present ATTN : CLAIMS USE ONLY ONLY [address] [place] [address] MEDICAID [place] MEDICAID [id number] 2010-Present [address] [address] [place] [address] 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
--- OUTSIDE RECORDS SUMMARY | 2021-12-10 13:53 | XMS_ITS | Encounter Summary ---
:1960 Author Organization [facility] Address [address] [place] [address] Care Team Providers Name Role Phone Unavailable Primary Care Provider Unavailable Reason for Visit Appointment Request (Routine) - Closed Specialty Diagnoses / Procedures Referred By Contact Refer red To Contact Nephrology and Hypertension Referral ID Status Reason Start Date Expiration Date Visits Requ ested Visits Authorized [id number] Closed 06/07/2018 06/07/2019 1 Encounter Details Date Type Department Care Team Description 06/21/2018 External Outreach Division of Akira Farah on And Chronic Kidney Disease Stage 1 (Primary Dx); Nephrology and Jun Peguero Jr., Urolithiasis ; Hypertension in D.O. Diabetes Mellitus Type 2 (HCC) [place], [place] [address] [place] [address] [address] [place] [phone] [phone] Social History Tobacco Use Types Packs/Day Years Used Date Smoking Tobacco: Never Assessed Sex Assigned at Date Recorded Not on file documented as of this encounter Progress Notes Jun Farah Jr., D.O. - 06/21/2018 11:00 AM CDT Please see scanned in documentation from [facility] outreach visit from this date documented in this encounter Plan of Treatment Not on filedocumented as of this encounter Visit Diagnoses Diagnosis Hypertension And Chronic Kidney Disease Stage 1 - Primary Urolithiasis Diabetes Mellitus Type 2 (HCC) documented in this encounter
--- OUTSIDE RECORDS SUMMARY | 2021-12-10 13:53 | XMS_ITS | Encounter Summary ---
:[address] [facility] Address [address] [place] [address] Care Team Providers Name Role Phone Unavailable Primary Care Provider Unavailable Encounter Details Date Type Department Care Team Description 06/09/2017 Abstract DATA ABSTRACTION Provider, Historical Social History Tobacco Use Types Packs/Day Years Used Date Smoking Tobacco: Never Assessed Sex Assigned at Date Recorded Not on file documented as of this encounter Plan of Treatment Not on filedocumented as of this encounter Visit Diagnoses Not on filedocumented in this encounter
--- OUTSIDE RECORDS SUMMARY | 2021-12-10 13:53 | XMS_ITS | Encounter Summary ---
:1960 Author Organization [facility] Address [address] [place] [address] Care Team Providers Name Role Phone Unavailable Primary Care Provider Unavailable Reason for Visit Reason Comments 24-hour urine collection pre July appt. Encounter Details Date Type Department Care Team Description 05/29/2020 Clinical Division of [place], 24-hour urine Communication Nephrology and Jun Peguero Jr., collection pre July Hypertension in D.O. appt. [place], [place] [address] [facility] [address] [place] [phone] [phone] Social History Tobacco Use Types Packs/Day Years Used Date Smoking Tobacco: Never Assessed Sex Assigned at Date Recorded Not on file documented as of this encounter Miscellaneous Notes Telephone Encounter - Alayna Mtz - 05/29/2020 11:11 AM CDT Patient called and is wondering if you want her to do the 24-hour jug before she sees you in [place] on July 23. She said her local doctor suggested she do it due to her sugars being around 8. Shewould like you to call her back at [phone]. Thanks documented in this encounter Plan of Treatment Not on filedocumented as of this encounter Visit Diagnoses Not on filedocumented in this encounter
--- OUTSIDE RECORDS SUMMARY | 2021-12-10 13:54 | XMS_ITS | Encounter Summary ---
:1960 Author Organization [facility] Address [address] [place] [address] Care Team Providers Name Role Phone Jessika Zheng MD Primary Care Provider Unavailable Reason for Visit (Routine) - Closed Specialty Diagnoses / Procedures Referred By Contact Refer red To Contact Radiology Diagnoses SCREENING BILATERAL-DIGITAL Procedure Notes: Routine. Breast [place] Procedures RADIOLOGY [address], [address] [place], [place] [address] Phone: Fax: Referral ID Status Reason Start Date Expiration Date Visits Requ ested Visits Authorized [id number] Closed 11/21/2010 11/21/2011 1 1 Encounter Details Date Type Department Care Team Description 11/25/2010 Hospital Encounter [facility] Wayne Zheng [facility] MD Jae [address], XXX NO INFO FOUND [address] [place], [place] [address] [place] [address] Social History Tobacco Use Types Packs/Day Years Used Date Smoking Tobacco: Never Assessed Sex Assigned at Date Recorded Not on file documented as of this encounter Plan of Treatment Not on filedocumented as of this encounter Procedures Procedure Name Priority Date/Time Associated Diagnosis Comme nts MA SCREENING Routine 11/25/2010 10:45 AM Results for this DIGITAL BILATERAL CDT procedure are in the results section. documented in this encounter Results Mammo Screening digital (bilat) (11/25/2010 10:45 AM CDT) Anatomical Region Laterality Modality Breast Bilateral Other Specimen (Source) Anatomical Collection Method Collection Time Re ceived Time Location / / Volume Laterality 11/25/2010 10:45 AM CDT Impressions 11/25/2010 11:03 AM CDT SCREENING MAMMOGRAM, BILATERAL, DIGITAL w/CAD BREAST SYMPTOMS/COMPARISON: 11/19/2009, 11/13/2007 BREAST PARENCHYMAL PATTERN: Mild/Fatty d ense FINDINGS: Negative. IMPRESSION: BI-RADS 1, NEGATIVE. Jessika Zheng MD IMG MAMMOGRAPHY ORDERABLES documented in this encounter Visit Diagnoses Not on filedocumented in this encounter Care Teams Rib Chopper Relationship Specialty Start Date End Date Jessika Zheng MD PCP - General Family Practice 11/21/10 08/24/20 documented as of this encounter
--- OUTSIDE RECORDS SUMMARY | 2021-12-10 13:54 | XMS_ITS | Encounter Summary ---
:1960 Author Organization [facility] Address [address] [place] [address] Care Team Providers Name Role Phone Vidya Arredondo PA-C Primary Care Provider Encounter Details Date Type Department Care Team Description 09/12/2020 [facility] Tuyet Stubbs, Encounter for screening [place] Rajeev chávez MD for other viral diseases [address] [facility] ONCOLOGY [place], [place] HEMATOLOGY [address] [address] [facility] [address] [facility] [phone] [place] [address] (Wo rk) Social History Tobacco Use Types Packs/Day Years Used Date Smoking Tobacco: Never Assessed Sex Assigned at Date Recorded Not on file COVID-19 Exposure Response Date Recorded In the last month, have you been in contact with No / Unsure 09/12/2020 2:51 PM CDT someone who was confirmed or suspected to have Coronavirus / COVID-19? documented as of this encounter Plan of Treatment Not on filedocumented as of this encounter Procedures Procedure Name Priority Date/Time Associated Diagnosis Comme nts SARS-COV2 Routine 09/12/2020 2:57 PM Encounter for Results for this (COVID-19) VIRUS CDT screening for other proc edure are in RT-PCR viral diseases the results section. COVID-19 VIRUS Routine 09/12/2020 2:57 PM Encounter for Result s for this (CORONAVIRUS) BY CDT screening for other proc edure are in PCR viral diseases the results section. documented in this encounter Results SARS-COV2 (COVID-19) Virus RT-PCR (09/12/2020 2:57 PM CDT) Analysis Performed [facility] Time Signature SARS CoV2 PCR Negative Negative 09/15/2020 [facility] 12:21 PM CDT LABORATORY Comment: NEGATIVE: SARS-CoV-2 (COVID-19) RNA not detected, presumed negative. Specimen Anatomical Location / Collection Method Collection Andres e Received Time (Source) Laterality / Volume Swab NASOPHARYNGEAL Non-blood 09/12/2020 2:57 09/12/2020 2:58 STRUCTURE / Unknown Collection / PM CDT PM CDT Unknown Narrative [facility] - 09/15/2020 12:21 PM CDT Testing was performed using the Xpert Xpress SARS-CoV-2 Assay on the 3D BiomatrixXpert Instrument Systems. A dditional information about this Emergency Use Authorization (EUA) a ssay can be found via the Lab Guide. This test should be ordered for t he detection of SARS-CoV-2 in individuals who meet SARS-CoV-2 clinical and/or epidemiological criteria. Test performance is unknown in asymptomatic patients. This test is for in vitro diagnostic use unde r the FDA EUA for laboratories certified under CLIA to per form high complexity testing. This test has not been FDA cleared or ap proved. A negative result does not rule out the presence of PCR in hibitors in the specimen or target RNA in concentration below the li louise of detection for the assay. The possibility of a false negati ve should be considered if the patient's recent exposure or clinica l presentation suggests COVID-19. This test was validated by the [facility]. This lab oratory is certified under the Clinical Laboratory Improvement Amen dments of 1987 (CLIA-88) as qualified to perform high complexity lab oratory testing. Tuyet Stubbs MD LAB - MICRO GENERAL ORDERABL ES Performing Organization Address City/State/ZIP Code Phon e Number [facility] [place] [place] [phone] 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
--- OUTSIDE RECORDS SUMMARY | 2021-12-10 13:54 | XMS_ITS | Encounter Summary ---
:1960 Author Organization Central Address [facility] [place] [address] Care Team Providers Name Role Phone Vidya Arredondo PA-C Primary Care Provider Reason for Visit Auth/Cert Specialty Diagnoses / Procedures Referred By Contact Refer red To Contact Surgery Diagnoses Endometrial carcinoma (H) Endometrial carcinoma (H) [C54.1] Sh Periop Services Procedures ZZC LAP,PELVIC LYMPHADENECTOMY/BX HC LAPAROSCOPY W TOT HYSTERECTUTERUS <=250 GRAM W TUBE/OVARY ZZC LAPAROSCOPY TOT HYSTERECTOMY UTERUS >250 GRAM W TUBE/OVARY [address] ROBOTIC ASSISTED TOTAL LAPAO RSCOPIC HYSTERECTOMY, BILATERAL SALPINGO OOPHORECTOMY, WASHINGS, INTRAOPERATIVE SENTINEL NODE MAPPING AND BIOPSY, POSSIBLE PELVIC AND PARA-AORTIC LYMPHADENECTOMY, POSSIBLE MINI LAPAROTOMY [address] [phone] Phone: Referral ID Status Reason Start Date Expiration Date Visits Requ ested Visits Authorized [id number] 1 1 Encounter Details Date Type Department Care Team Description 09/15/2020 Anesthesia Event [facility] Jin Jarrett MD [facility] [address] [id number] [place] [facility] Clare Hogan, PRESSURISED CONTAINER FILLER [address]RARY [address] [id number] Services [address] [place] [id number] Anesthesia Record Procedure Summary Procedure Name Responsible Anesthesia Start Anesthesia Stop Anesthesiologist Time Time ROBOTIC ASSISTED TOTAL Jin Jarrett MD 09/15/20 0807 09/15/20 1008 LAPAORSCOPIC HYSTERECTOMY, BILATERAL SALPINGO OOPHORECTOMY, WASHINGS, INTRAOPERATIVE SENTINEL NODE MAPPING AND BIOPSY, LEFT PELVIC LYMPHADENECTOMY, MINI LAPAROTOMY, REPAIR VAGINAL LACERATION (Bilateral: Abdomen) Events Date Time Event Comment 09/15/2020 0640 0728 LIBRARY PAGE Ready for Procedure 0807 An Start 0807 An Start Data 0807 AN REASSESS I attest that I have identified and re-evaluated the patient immediately before the induction of anesthesia and I am satisfied that t he anesthetic plan is suitable for the patient's condition and procedure. The f irst vital signs recorded are pre- inducti on. Clare Hogan APRN [facility]RARY [employer] 0814 An Induction 0818 An Intubation 0825 Antibiotic Complete 0841 AN INCISION 0907 MD Present 0959 AN Extubation All extubation c riteria met prior to removal. 1001 an stop data 1008 An Stop Electronically s igned by Clare Hogan APRN LIBRARY PAGE on September 15, 2020 10:13 AM Name Total dexamethasone 4mg/mL 4 mg ePHEDrine 5 mg/mL 5 mg fentaNYL (SUBLIMAZE) injection 175 mcg glycopyrrolate 0.2mg/mL 0.8 mg ketorolac 30mg/mL 15 mg lidocaine 2% 100 mg midazolam 1mg/mL 2 mg neostigmine 1mg/mL 5 mg ondansetron 2mg/mL 4 mg propofol (DIPRIVAN) injection 10 mg/mL vial 250 mg propofol infusion (mcg/kg/min) 215.07 mg rocuronium 10mg/mL 80 mg ceFAZolin (ANCEF) intermittent infusion 2 g in 100 mL dextrose PRE-MIX 2 g LR 900 mL Agents Name NO HELIOX O2 N2O Air Exp Sevoflurane Exp Isoflurane Exp Desflurane Exp N2O Ins Sevoflurane Ins Isoflurane Ins Desflurane O2 Auxiliary Blood No blood administrations on file. Lines, Drains, and Airways Type Details Placement Removal Incision/Surgical Site 09/15/20; 0957; 09/15/20 0957 by Bilateral; Abdomen; 5 Dary Jones RN SITES Peripheral IV 09/15/20; 728; 20 G; 09/15/20 0729 by 09/15/20 1150 by Anterior, Right; Upper Sravani Mock RN [place], Melissa forearm M, RN ETT Placement Date: 09/15/20911 by 09/15/2059 b y 09/15/20; Placement Clare Hogan Tirsoalenangozi Clare Time: 911 (created KAMRON Benz LIBRARY PAGE KAMRON Benz CR NA via procedure documentation); Mask Ventilation: 2; Induction Type: Intravenous; Ease of Intubation: Easy; Technique: Video laryngoscopy; ETT Type: Single; Tube Size: 7 mm; VL Blade Size: Jackson scope 3; Grade View: 1; Placement Person: LIBRARY PAGE; Attempts: 1; Depth: 21 cm documented in this encounter Social History Tobacco Use Types Packs/Day Years [...] / COVID-19? documented as of this encounter OR Notes Anesthesia Postprocedure Evaluation - Jin Jarrett MD - 09/15/2020 2:22 PM CDT Patient: Negra Ibarra Procedure(s): ROBOTIC ASSISTED TOTAL LAPAORSCOPIC HYSTERECTOMY, BILATERAL SALPINGO OOPHORECTOMY, WASHINGS, INTRAOPERATIVE SENTINEL NODE MAPPING AND BIOPSY, LEFT PELVIC LYMPHADENECTOMY, MINI LAPAROTOMY, REPAIR VAGINAL LACERATION Diagnosis:Endometrial carcinoma (H) [C54.1] Diagnosis Additional Information: No value filed. Anesthesia Type: General Note: Disposition: Inpatient Postop Pain Control: Uneventful Sign Out: Well controlled pain PONV: Neuro/Psych: Uneventful Sign Out: Acceptable/Baseline neuro status Airway/Respiratory: Uneventful Sign Out: Acceptable/Baseline resp. status CV/Hemodynamics: Uneventful Sign Out: Acceptable CV status Other NRE: NONE DID A NON-ROUTINE EVENT OCCUR? No Last vitals: Vitals Value Taken Time BP 142/78 09/15/20 1100 Temp 36.1 ??C (97 ??F) 09/15/20 1100 Pulse 76 09/15/20 1102 Resp 19 09/15/20 1102 SpO2 96 % 09/15/20 1100 Vitals shown include unvalidated device data. Electronically Signed By: Jin Jarrett MD September 15, 2020 2:22 PM Anesthesia Procedure Notes - Clare Hogan APRN CRNA - 09/15/2020 9:11 AM CDTAssociated Order(s): Airway Airway Patient location during procedure: OR Procedure Start/Stop Times: 09/15/2020 8:18 AM Staff - LIBRARY PAGE: Clare Hogan APRN CRNA Performed By: LIBRARY PAGE Consent for Airway Urgency: elective Indications and Patient Condition Indications for airway management: darinel-procedural Induction type:intravenous Mask difficulty assessment: 2 - vent by mask + OA or adjuvant +/- NMBA Final Airway Details Final airway type: endotracheal airway Successful airway: ETT - single Endotracheal Airway Details ETT size (mm): 7.0 Cuffed: yes Successful intubation technique: video laryngoscopy VL Blade Size: Glidescope 3 Grade View of Cords: 1 Position: Right Measured from: lips Secured at (cm): 21 Bite block used: None Post intubation assessment Placement verified by: capnometry, equal breath sounds and chest rise Number of attempts at approach: 1 Number of other approaches attempted: 1 (patient ramped up with blankets) Secured with: commercial tube baird and pink tape Ease of procedure: easy Dentition: Intact and Unchanged Anesthesia Preprocedure Evaluation - Jin Jarrett MD - 09/14/2020 2:03 PM CDT Anesthesia Pre-Procedure Evaluation Patient: Negra Ibarra : 1960 Preoperative Diagnosis: Endometrial carcinoma (H) [C54.1] Procedure : Procedure(s): ROBOTIC ASSISTED TOTAL LAPAORSCOPIC HYSTERECTOMY, BILATERAL SALPINGO OOPHORECTOMY, WASHINGS, INTRAOPERATIVE SENTINEL NODE MAPPING AND BIOPSY, POSSIBLE PELVIC AND PARA-AORTIC LYMPHADENECTOMY, POSSIBLE MINI LAPAROTOMY No past medical history on file. No past surgical history on file. Allergies Allergen Reactions ??? Propoxyphene Social History Tobacco Use ??? Smoking status: Not on file Substance Use Topics ??? Alcohol use: Not on file Wt Readings from Last 1 Encounters: No data found for Wt Anesthesia Evaluation Pt has had prior anesthetic. No history of anesthetic complications ROS/MED HX ENT/Pulmonary: (+) FRANKY risk factors, hypertension, obese, (-) tobacco use, asthma, COPD and sleep apnea Neurologic: Comment: Down Syndrome. No cervical spine issues on file. Cardiovascular: (+) hypertension-----No previous cardiac testing (-) CAD and arrhythmias METS/Exercise Tolerance: Hematologic: (+) anemia, Musculoskeletal: Comment: Gout (+) arthritis, GI/Hepatic: (+) GERD, Asymptomatic on medication, Renal/Genitourinary: - neg Renal ROS Endo: (+) type II DM, Not using insulin, - not using insulin pump. Obesity, Psychiatric/Substance Use: - neg psychiatric ROS Infectious Disease: Malignancy: (+) Malignancy, History of Other.Other CA Endometrial Ca Active status post Surgery. Other: Physical Exam Airway Mallampati: III TM distance: > 3 FB Neck ROM: full Mouth opening: > 3 cm Respiratory Devices and Support Dental no notable dental history Cardiovascular cardiovascular exam normal Rhythm and rate: regular Pulmonary pulmonary exam normal breath sounds clear to auscultation OUTSIDE LABS: CBC: Lab Results Component Value Date WBC 9.3 05/05/2017 HGB 11.0 (L) 05/05/2017 HCT 35.2 05/05/2017 PLT 335 05/05/2017 BMP: Lab Results Component Value Date NA 138 05/05/2017 POTASSIUM 4.3 05/05/2017 CHLORIDE 101 05/05/2017 CO2 27 05/05/2017 BUN 15 05/05/2017 CR 0.77 05/05/2017 GLC 130 (H) 05/05/2017 COAGS: No results found for: PTT, INR, FIBR POC: No results found for: BGM, HCG, HCGS HEPATIC: No results found for: ALBUMIN, PROTTOTAL, ALT, AST, GGT, ALKPHOS, BILITOTAL, BILIDIRECT, SAVANNAH OTHER: Lab Results Component Value Date SHEELA 9.3 05/05/2017 Anesthesia Plan ASA Status: 3 NPO Status: NPO Appropriate Anesthesia Type: General. - Airway: ETT Maintenance: Balanced. Techniques and Equipment: - Airway: Video-Laryngoscope - Lines/Monitors: 2nd IV Consents Anesthesia Plan(s) and associated risks, benefits, and realistic alternatives discussed. 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 - Discussed with: Patient - Extended Intubation/Ventilatory Support Discussed: No. - Patient is DNR/DNI Status: No Use of blood products discussed: Yes. - Discussed with: Patient, Legal guardian. - Consented: consented to blood products Reason for refusal: other. Postoperative Care Pain management: Multi-modal analgesia. PONV prophylaxis: Ondansetron (or other 5HT-3), Dexamethasone or Solumedrol Comments: Patient is counseled on the anesthesia plan and relevant anesthesia procedures including all risks and benefits. All patient questions were answered. No C-spine issues documented but will use VL for ETT to keep neutral. Patient does not have typical facial Downs features. 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 Jin Jarrett MD documented in this encounter Miscellaneous Notes Anesthesia Care Transfer Note - Clare Hogan APRN LIBRARY PAGE - 09/15/2020 10:12 AM CDT Patient: Negra Ibarra Procedure(s): ROBOTIC ASSISTED TOTAL LAPAORSCOPIC HYSTERECTOMY, BILATERAL SALPINGO OOPHORECTOMY, WASHINGS, INTRAOPERATIVE SENTINEL NODE MAPPING AND BIOPSY, LEFT PELVIC LYMPHADENECTOMY, MINI LAPAROTOMY, REPAIR VAGINAL LACERATION Diagnosis: Endometrial carcinoma (H) [C54.1] Diagnosis Additional Information: No value filed. Anesthesia Type: General Note: Oropharynx: oropharynx clear of all foreign objects and spontaneously breathing Level of Consciousness: awake Oxygen Supplementation: face mask Independent Airway: airway patency satisfactory and stable Dentition: dentition unchanged Vital Signs Stable: post-procedure vital signs reviewed and stable Report to RN Given: handoff report given Patient transferred to: PACU Handoff Report: Identifed the Patient, Identified the Reponsible Provider, Reviewed the pertinent medical history, Discussed the surgical course, Reviewed Intra-OP anesthesia mangement and issues during anesthesia, Set expectations for post-procedure period and Allowed opportunity for questions and acknowledgement of understanding Vitals: Vitals Value Taken Time BP 144/78 09/15/20 1004 Temp 36.1 ??C (96.9 ??F) 09/15/20 1004 Pulse 79 09/15/20 1011 Resp 12 09/15/20 1011 SpO2 100 % 09/15/20 1011 Vitals shown include unvalidated device data. Electronically Signed By: Clare Hogan APRN CRNA September 15, 2020 10:12 AM documented in this encounter Plan of Treatment Not on filedocumented as of this encounter Procedures Procedure Name Priority Date/Time Associated Comments Diagnosis ANE AIRWAY ETT Routine 09/15/2020 9:11 AM Results for this PERFORMABLE CDT procedure are i n the results section. documented in this encounter Results ANE AIRWAY ETT PERFORMABLE (09/15/2020 9:11 AM CDT) Narrative Clare Hogan APRN CRNA - 10/2020 9:11 AM CDT Clare Hogan APRN CRNA ? 09/15/2020 ??9:12 AM Airway ? Patient location during procedure : OR ? Procedure Start/Stop Times: 8:18 AM Staff - ? LIBRARY PAGE: Clare Hogan APR N CRNA ? Performed By: LIBRARY PAGE Consent for Airway ? Urgency: elective Indications and Patient Condition ? Indications for airway management : darinel-procedural ? Induction type:intravenous ? Mask difficulty assessment: 2 - v ent by mask + OA or adjuvant +/- NMBA Final Airway Details ? Final airway type: endotracheal a irway ? Successful airway: ETT - single Endotracheal Airway Details ? ETT size (mm): 7.0 ? Cuffed: yes ? Successful intubation technique: video laryngoscopy ? VL Blade Size: Glidescope 3 ? Grade View of Cords: 1 ? Position: Right ? Measured from: lips ? Secured at (cm): 21 ? Bite block used: None Post intubation assessment ? Placement verified by: capnometry , equal breath sounds and chest rise ? Number of attempts at approach: 1 ? Number of other approaches attemp efraín: 1 (patient ramped up with blankets) ? Secured with: commercial tube hol mahendra and pink tape ? Ease of procedure: easy ? Dentition: Intact and Unchanged Jin Jarrett MD [place] [facility] documented in this encounter Visit Diagnoses Not on filedocumented in this encounter Administered Medications Inactive Administered Medications - up to 3 most recent administrations Medication Order MAR Action Action Date Dose Rate Site ceFAZolin (ANCEF) intermittent Given 09/15/2020 8:09 AM CDT 2 g infusion 2 g in 100 mL dextrose PRE-MIX Routine, 2 g, Intravenous, PRE-OP/PRE-PROCEDURE, Starting on Tue09/15/20 at 0616, For 1 dose, Give first dose within 1 hour PRIOR to incision. If patient weight is greater than or equal to 120 kg increase dose to 3 g., Indications: Perioperative Pharmacoprophylaxis, Pre-procedure dexamethasone (DECADRON) injection Given 09/15/2020 8:24 AM CDT 4 mg Intravenous, PRN, Administer over 1 Minutes, Starting on Tue09/15/20 at 0824, Anesthesia Intra-op ePHEDrine injection Given 09/15/2020 9:47 AM CDT 5 mg Intravenous, PRN, Starting on Tue09/15/20 at 0947, Anesthesia Intra-op fentaNYL (PF) (SUBLIMAZE) injection Given 09/15/2020 10:06 AM CDT 50 mcg Intravenous, PRN, Administer over 3-5 Minutes, Starting on Tue09/15/20 at 0840, Anesthesia Intra-op Given 09/15/2020 9:49 AM CDT 25 mcg Given 09/15/2020 8:45 AM CDT 50 mcg glycopyrrolate (ROBINUL) injection Given 09/15/2020 9:41 AM CDT 0.8 mg Intravenous, PRN, Administer over 1-2 Minutes, Starting on Tue09/15/20 at 0941, Anesthesia Intra-op ketorolac (TORADOL) injection Given 09/15/2020 9:37 AM CDT 15 mg Intravenous, PRN, Administer over 2 Minutes, Starting on Tue09/15/20 at 0937, Anesthesia Intra-op lactated ringers infusion New Bag 09/15/2020 8:07 AM CDT Intravenous, CONTINUOUS PRN, Anesthesia Intra-op, Starting on Tue09/15/20 at 0807, Until Tue09/15/20 at 1013 lidocaine 2% injection (MDV) Given 09/15/2020 8:15 AM CDT 100 mg Other, PRN, Starting on Tue09/15/20 at 0815, Anesthesia Intra-op midazolam (VERSED) injection Given 09/15/2020 8:13 AM CDT 1 mg Intravenous, Administer over 2 Minutes, PRN, Starting on Tue09/15/20 at 0807, Anesthesia Intra-op Given 09/15/2020 8:07 AM CDT 1 mg neostigmine (PROSTIGMINE) injection Given 09/15/2020 9:41 AM CDT 5 mg Intravenous, PRN, Starting on Tue09/15/20 at 0941, Anesthesia Intra-op ondansetron (ZOFRAN) injection Given 09/15/2020 9:37 AM CDT 4 mg Intravenous, PRN, Administer over 2-5 Minutes, Starting on Tue09/15/20 at 0937, Anesthesia Intra-op propofol (DIPRIVAN) infusion New Bag 09/15/2020 8:24 AM 30 mcg/kg/min 19.26 mL/hr Intravenous, CONTINUOUS PRN, CDT Starting on Tue09/15/20 at 0824, Anesthesia Intra-op propofol (DIPRIVAN) injection 10 mg/mL v ial Given 09/15/2020 8:15 AM CDT 250 mg Intravenous, PRN, Starting on Tue09/15/20 at 0815, Anesthesia Intra-op rocuronium injection Given 09/15/2020 8:50 AM CDT 20 mg Intravenous, PRN, Starting on Tue09/15/20 at 0815, Anesthesia Intra-op Given 09/15/2020 8:31 AM CDT 10 mg Given 09/15/2020 8:15 AM CDT 50 mg documented in this encounter Care Teams Harvest Supervisor Relationship Specialty Start Date End Date Vidya Arredondo PA-C PCP - General 08/25/[address] [place] [address] documented as of this encounter
--- OUTSIDE RECORDS SUMMARY | 2021-12-10 13:54 | XMS_ITS | Encounter Summary ---
:1960 Author Organization [place] Address [address] [place] [id number] Care Team Providers Name Role Phone Unavailable Primary Care Provider Unavailable Encounter Details Date Type Department Care Team Description 11/28/2007 Results Only [facility] Daren Zheng, Hospital Results [place] [address] Social History Tobacco Use Types Packs/Day Years Used Date Smoking Tobacco: Never Assessed Sex Assigned at Date Recorded Not on file documented as of this encounter Plan of Treatment Not on filedocumented as of this encounter Procedures Procedure Name Priority Date/Time Associated Comments Diagnosis HC MAMMO DIAGNOSTIC Routine 11/28/2007 10:06 AM R esults for this BILATERAL, INCL CAD CDT procedur e are in WHEN PERF the results section. documented in this encounter Results DIAGNOSTIC MAMMOGRAPHY DIGITAL (BILAT) (11/28/2007 10:06 AM CDT) Anatomical Region Laterality Modality Other Specimen (Source) Anatomical Collection Method Collection Time Re ceived Time Location / / Volume Laterality 11/28/2007 10:06 AM CDT Impressions 11/28/2007 10:08 AM CDT DIAGNOSTIC MAMMOGRAM, LEFT DIGITAL w/CAD HISTORY/COMPARISON: ??Abnormal screening FINDINGS: Area of focal concern seen on the recent screening exam is due to overlapping breast tissue. No wor risome findings on today's exam. IMPRESSION: BI-RADS 1, NEGATIVE. Jessika Zheng MD [employer]UDIES documented in this encounter Visit Diagnoses Not on filedocumented in this encounter
--- OUTSIDE RECORDS SUMMARY | 2021-12-10 13:54 | XMS_ITS | Encounter Summary ---
:1960 Author Organization [place] Address [address] [place] [address] Care Team Providers Name Role Phone Vidya Arredondo PA-C Primary Care Provider Encounter Details Date Type Department Care Team Description 09/12/2020 Travel Social History Tobacco Use Types Packs/Day [...] on filedocumented in this encounter Care Teams Rehabilitation Engineer Relationship Specialty Start Date End Date Vidya Arredondo PA-C PCP - General 08/25/20 [place] [address] [place] [address] documented as of this encounter
--- OUTSIDE RECORDS SUMMARY | 2021-12-10 13:54 | XMS_ITS | Encounter Summary ---
:1960 Author Organization [place] Address [address] [place] [address] Care Team Providers Name Role Phone Unavailable Primary Care Provider Unavailable Encounter Details Date Type Department Care Team Description 11/19/2009 Results Only [facility] Daren Zheng, Hospital Results XXX [place] [address] Social History Tobacco Use Types Packs/Day Years Used Date Smoking Tobacco: Never Assessed Sex Assigned at Date Recorded Not on file documented as of this encounter Plan of Treatment Not on filedocumented as of this encounter Procedures Procedure Name Priority Date/Time Associated Diagnosis Comme [facility] MAMMO SCREEN Routine 11/19/2009 10:10 AM Resul ts for this BILATATERAL, INCL CDT procedure are in CAD WHEN PERF the results section. documented in this encounter Results SCREENING MAMMOGRAPHY DIGITAL (BILAT) (11/19/2009 10:10 AM CDT) Anatomical Region Laterality Modality Other Specimen (Source) Anatomical Collection Method Collection Time Re ceived Time Location / / Volume Laterality 11/19/2009 10:10 AM CDT Impressions 11/19/2009 10:27 AM CDT SCREENING MAMMOGRAM, BILATERAL, DIGITAL w/CAD BREAST SYMPTOMS/COMPARISON: 11/13/2008, 12/02/2003 BREAST PARENCHYMAL PATTERN: Heterogeneou sly dense FINDINGS: Negative. IMPRESSION: BI-RADS 1, NEGATIVE. Jessika Zheng MD SPECIAL IMAGING STUDIES documented in this encounter Visit Diagnoses Not on filedocumented in this encounter
--- OUTSIDE RECORDS SUMMARY | 2021-12-10 13:54 | XMS_ITS | Encounter Summary ---
:1960 Author Organization [place] Address [address] [place] [address] Care Team Providers Name Role Phone Unavailable Primary Care Provider Unavailable Encounter Details Date Type Department Care Team Description 11/13/2008 Results Only [facility] Daren Zheng, Hospital Results XXX [place] [address] Social History Tobacco Use Types Packs/Day Years Used Date Smoking Tobacco: Never Assessed Sex Assigned at Date Recorded Not on file documented as of this encounter Plan of Treatment Not on filedocumented as of this encounter Procedures Procedure Name Priority Date/Time Associated Diagnosis Comme [facility] MAMMO SCREEN Routine 11/13/2008 11:18 AM Resul ts for this BILATATERAL, INCL CDT procedure are in CAD WHEN PERF the results section. documented in this encounter Results SCREENING MAMMOGRAPHY DIGITAL (BILAT) (11/13/2008 11:18 AM CDT) Anatomical Region Laterality Modality Other Specimen (Source) Anatomical Collection Method Collection Time Re ceived Time Location / / Volume Laterality 11/13/2008 11:18 AM CDT Impressions 11/13/2008 11:26 AM CDT SCREENING MAMMOGRAM, BILATERAL, DIGITAL w/CAD BREAST SYMPTOMS/COMPARISON: Routine. ??1 , 12/02/2003 BREAST PARENCHYMAL PATTERN: Heterogeneou sly dense. COMMENTS: Negative. IMPRESSION: BI-RADS 1, NEGATIVE. Jessika Zheng MD SPECIAL IMAGING STUDIES documented in this encounter Visit Diagnoses Not on filedocumented in this encounter
--- OUTSIDE RECORDS SUMMARY | 2021-12-10 13:54 | XMS_ITS | Encounter Summary ---
:1960 Author Organization [facility] Address [address] [place] [address]. [place] [address] Care Team Providers Name Role Phone Jessika Zheng MD Primary Care Provider Unavailable Encounter Details Date Type Department Care Team Description 05/04/2017 [facility] GERIATRIC SERVICES [address] [id number] [place] [address] [place], [place] [id number] (Wo rk) Social History Tobacco Use Types Packs/Day Years Used Date Smoking Tobacco: Never Assessed Sex Assigned at Date Recorded Not on file documented as of this encounter Plan of Treatment Not on filedocumented as of this encounter Procedures Procedure Name Priority Date/Time Associated Diagnosis Comme nts BASIC METABOLIC Routine 05/05/2017 5:20 AM Result s for this PANEL CDT procedure are i n the results section. CBC WITH PLATELETS Routine 05/05/2017 5:20 AM Res ults for this CDT procedure are i n the results section. documented in this encounter Results (ABNORMAL) CBC with platelets (05/05/2017 5:20 AM CDT) [facility] Method Time Signature WBC 9.3 4.0 - 11.0 05/05/2017 [facility] thou/uL 9:37 AM CDT [facility] RBC Count 4.15 3.80 - 05/05/2017 [facility] 5.40 9:37 AM CDT [facility] Hemoglobin 11.0 (L) 12.0 - 05/05/2017 [facility] 16.0 g/dL 9:37 AM T [facility] Hematocrit 35.2 35.0 - 05/05/2017 [facility] 47.0 % 9:37 AM T [facility] MCV 85 80 - 100 05/05/2017 [facility] fL 9:37 AM CDT [facility] MCH 26.5 (L) 27.0 - 05/05/2017 [facility] 34.0 pg 9:37 AM T [facility] MCHC 31.3 (L) 32.0 - 05/05/2017 [facility] 36.0 g/dL 9:37 AM [facility] RDW 15.4 (H) 11.0 - 05/05/2017 [facility] 14.5 % 9:37 AM T [facility] Platelet Count 335 140 - 440 05/05/2017 [facility] thou/uL 9:37 AM T [facility] Mean Platelet 9.0 8.5 - 12.5 05/05/2017 [facility] Volume fL 9:37 AM [facility] Specimen Anatomical Collection Method / Collection Time Recei yecenia Time (Source) Location / Volume Laterality Blood specimen STRUCTURE OF RIGHT Venipuncture / 05/05/2017 5:20 9:21 (specimen) UPPER LIMB / Unknown AM CDT AM CDT Unknown Joshua Pena NP LAB - BLOOD ORDERABLES Performing Organization Address City/State/ZIP Code Phon e Number [place] [address] [phone] [address] [facility] (ABNORMAL) Basic metabolic panel (05/05/2017 5:20 AM CDT) Analysis Performed At Patho logist Time Signature Sodium 138 136 - 145 05/05/2017 [facility] mmol/L 9:47 AM T [facility] Potassium 4.3 3.5 - 5.0 05/05/2017 [facility] mmol/L 9:47 AM T [facility] Chloride 101 98 - 107 05/05/2017 [facility] mmol/L 9:47 AM [facility] Carbon Dioxide 27 22 - 31 05/05/2017 [facility] (CO2) mmol/L 9:47 AM [facility] Anion Gap 10 5 - 18 05/05/2017 [facility] mmol/L 9:47 AM T [facility] Glucose 130 (H) 70 - 125 05/05/2017 [facility] mg/dL 9:47 AM [facility] Calcium 9.3 8.5 - 10.5 05/05/2017 [facility] mg/dL 9:47 AM [facility] Urea Nitrogen 15 8 - 22 05/05/2017 [facility] mg/dL 9:47 AM [facility] Creatinine 0.77 0.60 - 05/05/2017 [facility] 1.10 mg/dL 9:47 AM [facility] GFR Estimate If >60 >60 05/05/2017 [facility] Black mL/min/1.7 9:[address] LABORATORY GFR Estimate >60 >60 05/05/2017 [facility] mL/min/1.7 9:[address] LABORATORY Specimen Anatomical Collection Method / Collection Time Recei yecenia Time (Source) Location / Volume Laterality Blood specimen STRUCTURE OF RIGHT Venipuncture / 05/05/2017 5:20 9:21 (specimen) UPPER LIMB / Unknown AM CDT AM CDT Unknown Narrative [facility] - 05/05/2017 9:47 AM CDT Fasting Glucose reference range is 70-99 mg/dL per [place] [employer] (ADA) henrry domínguez. Joshua Pena NP LAB - BLOOD ORDERABLES Performing Organization Address City/State/ZIP Code Phon [place] [address] [id number] [place] [place], [place] [address]S LABORATORY [facility] [address] [address], [facility] [[email or web address] documented in this encounter Visit Diagnoses Not on filedocumented in this encounter Care Teams Artist'S Representative Relationship Specialty Start Date End Date Jessika Zheng MD PCP - General Family Practice 11/21/10 08/24/20 documented as of this encounter
--- OUTSIDE RECORDS SUMMARY | 2021-12-10 13:54 | XMS_ITS | Encounter Summary ---
:1960 Author Organization [facility] Address Formerly [facility] [place] [address] Care Team Providers Name Role Phone Ben Arredondo PA-C Primary Care Provider Reason for Visit Auth/Cert Specialty Diagnoses / Procedures Referred By Contact Refer red To Contact Surgery Diagnoses Endometrial carcinoma (H) Endometrial carcinoma (H) [C54.1] Sh Periop Services Procedures ZZC LAP,PELVIC LYMPHADENECTOMY/BX HC LAPAROSCOPY W TOT HYSTERECTUTERUS <=250 GRAM W TUBE/OVARY ZZC LAPAROSCOPY TOT HYSTERECTOMY UTERUS >250 GRAM W TUBE/OVARY [address] ROBOTIC ASSISTED TOTAL LAPAO RSCOPIC HYSTERECTOMY, BILATERAL SALPINGO OOPHORECTOMY, WASHINGS, INTRAOPERATIVE SENTINEL NODE MAPPING AND BIOPSY, POSSIBLE PELVIC AND PARA-AORTIC LYMPHADENECTOMY, POSSIBLE MINI LAPAROTOMY LL[address] [place] [phone] Phone: Referral ID Status Reason Start Date Expiration Date Visits Requ ested Visits Authorized [id number] 1 1 Encounter Details Date Type Department Care Team Description 09/15/[address] [facility] Tuyet Stubbs MD carcinoma (H) PreOP/Phase II [place] [facility] (Primary Dx) [address] [facility] [address] [phone] [place] [id number] Social History Tobacco Use Types Packs/Day Years [...] / COVID-19? documented as of this encounter Last Filed [...] Mass Index 48.05 09/15/2020 7:26 AM CDT documented in this encounter Discharge Instructions Discharge InstructionsSukhjinder Flores RN - 09/15/2020 10:47 AM CDT Today you were given 975 mg of Tylenol at 630 am. The recommended daily maximum dose is 4000 mg. Today you received Toradol, an antiinflammatory medication similar to Ibuprofen. You should not takeother antiinflammatory medication, such as Ibuprofen, Motrin, Advil, Aleve, Naprosyn, etc until 3:30pm. Same Day Surgery Discharge Instructions for Sedation and General Anesthesia ?? It's not unusual to feel dizzy, light-headed or faint for up to 24 hours after surgery or while taking pain medication. If you have these symptoms: sit for a few minutes before standing and have someone assist you when you get up to walk or use the bathroom. ?? You should rest and relax for the next 24 hours. We recommend you make arrangements to have an adult stay with you for at least 24 hours after your discharge. Avoid hazardous and strenuous activity. ?? DO NOT DRIVE any vehicle or operate mechanical equipment for 24 hours following the end of your surgery. Even though you may feel normal, your reactions may be affected by the medication you have received. ?? Do not drink alcoholic beverages for 24 hours following surgery. ?? Slowly progress to your regular diet as you feel able. It's not unusual to feel nauseated and/or vomit after receiving anesthesia. If you develop these symptoms, drink clear liquids (apple juice, bradley clint, broth, 7-up, etc. ) until you feel better. If your nausea and vomiting persists for 24 hours, please notify your surgeon. ?? All narcotic pain medications, along with inactivity and anesthesia, can cause constipation. Drinking plenty of liquids and increasing fiber intake will help. ?? For any questions of a medical nature, call your surgeon. ?? Do not make important decisions for 24 hours. ?? If you had general anesthesia, you may have a sore throat for a couple of days related to the breathing tube used during surgery. You may use Cepacol lozenges to help with this discomfort. If it worsens or if you develop a fever, contact your surgeon. ?? If you feel your pain is not well managed with the pain medications prescribed by your surgeon, please contact your surgeon's office to let them know so they can address your concerns. CoVid 19 Information We want to give you information regarding Covid. Please consult your primary care provider with any questions you might have. Patient who have symptoms (cough, fever, or shortness of breath), need to isolate for 7 days from when symptoms started OR 72 hours after fever resolves (without fever reducing medications) AND improvement of respiratory symptoms (whichever is longer). ?? Isolate yourself at home (in own room/own bathroom if possible) ?? Do Not allow any visitors ?? Do Not go to work or school ?? Do Not go to sikhism, children teacher centers, shopping, or other public places. ?? Do Not shake hands. ?? Avoid close and intimate contact with others (hugging, kissing). ?? Follow CDC recommendations for household cleaning of frequently touched services. After the initial 7 days, continue to isolate yourself from household members as much as possible. To continue decrease the risk of community spread and exposure, you and any members of your household should limit activities in public for 14 days after starting home isolation. You can reference the following CDC link for helpful home isolation/care tips: https://www.cdc.gov/coronavirus/2019-ncov/downloads/10Things.pdf Protect Others: ?? Cover Your Mouth and Nose with a mask, disposable tissue or wash cloth to avoid spreading germs to others. ?? Wash your hands and face frequently with soap and water Call Your Primary Doctor If: Breathing difficulty develops or you become worse. For more information about COVID19 and options for caring for yourself at home, please visit the CDCwebsite at https://www.cdc.gov/coronavirus/2019-ncov/about/hyisv-ruxz-jpfs.html For more options for care at [facility], please visit our website at [email or web address] If you have questions or concerns about your procedure, call Dr. Stubbs [phone] documented in this encounter Medications at Time of Discharge Medication Sig Dispensed Refills Start Date End Date allopurinol (ZYLOPRIM) 100 Take 100 mg by 0 MG tablet mouth every morning amoxicillin (AMOXIL) 500 Take 2,000 mg by 0 MG tablet mouth daily as needed (1 hour prior to dental appointments) gabapentin (NEURONTIN) 100 Take 100 mg by 0 MG capsule mouth 2 times daily glipiZIDE (GLUCOTROL) 5 MG Take 5 mg by mouth 0 tablet 2 times daily (before meals) hydrochlorothiazide Take 12.5 mg by 0 (MICROZIDE) 12.5 MG mouth every morning capsule metFORMIN (GLUCOPHAGE) 500 Take 250 mg by 0 MG tablet mouth every morning (1/2 x 500mg) omeprazole (PRILOSEC) 20 Take 20 mg by mouth [address] capsule daily as needed (pt taking differently than prescribed; RX states 20mg twice daily) potassium citrate Take 10 mEq by 0 (UROCIT-K) 10 MEQ (1080 mouth every morning MG) CR tablet senna (SENOKOT) 8.6 MG Take 1-3 tablets by 30 tablet 0 /0 10/2020 tabletIndications: mouth 2 times daily Endometrial carcinoma (H) as needed for constipation sucralfate (CARAFATE) 1 GM Take 1 g by mouth 4 0 tablet times daily tamsulosin (FLOMAX) 0.4 MG Take 0.4 mg by 0 capsule mouth daily as needed oxyCODONE (ROXICODONE) 5 Take 1 tablet (5 12 tablet 0 09/1509/18/2020 MG tabletIndications: mg) by mouth every Endometrial carcinoma (H) 6 hours as needed for pain documented as of this encounter Progress Notes Sukhjinder Flores RN - 09/15/2020 11:13 AM CDT Pt dressed, up in recliner and transported to Phase 2. Elizabeth Mead - 09/15/2020 6:20 AM CDT STEAM TABLE ATTENDANT medications completed by Medication Scribe day of surgery Medication history sources: Patient, Surescripts, H&P and Patient's home med list In the past week, patient estimated taking medication this percent of the time: Greater than 90% Adherence assessment: N/A Not Observed Significant changes made to the medication list: None Additional medication history information: None Medication reconciliation completed by provider prior to medication history? No Time spent in this activity: 30 minutes The information provided in this note is only as accurate as the sources available at the time of update(s) Prior to Admission medications Medication Sig Last Dose Taking? Auth Provider allopurinol (ZYLOPRIM) 100 MG tablet Take 100 mg by mouth every morning 09/15/2020 at 0430 Yes Reported, Patient amoxicillin (AMOXIL) 500 MG tablet Take 2,000 mg by mouth daily as needed (1 hour prior to dental appointments) > 1 week at prn Yes Reported, Patient gabapentin (NEURONTIN) 100 MG capsule Take 100 mg by mouth 2 times daily 09/15/2020 at 0430 Yes Reported, Patient glipiZIDE (GLUCOTROL) 5 MG tablet Take 5 mg by mouth 2 times daily (before meals) 09/14/2020 at pm YesReported, Patient hydrochlorothiazide (MICROZIDE) 12.5 MG capsule Take 12.5 mg by mouth every morning 09/15/2020 at 0430Yes Reported, Patient metFORMIN (GLUCOPHAGE) 500 MG tablet Take 250 mg by mouth every morning (1/2 x 500mg) 09/15/2020 at 0430 Yes Reported, Patient omeprazole (PRILOSEC) [address] capsule Take 20 mg by mouth daily as needed (pt taking differently than prescribed; RX states 20mg twice daily) 09/15/2020 at 0430 Yes Reported, Patient potassium citrate (UROCIT-K) 10 MEQ (1080 MG) CR tablet Take 10 mEq by mouth every morning 09/14/2020 at am Yes Reported, Patient sucralfate (CARAFATE) 1 GM tablet Take 1 g by mouth 4 times daily 09/15/2020 at 0430 Yes Reported, Patient tamsulosin (FLOMAX) 0.4 MG capsule Take 0.4 mg by mouth daily as needed > 1 week at prn Yes Reported, Patient documented in this encounter H&P Notes Jin Jarrett MD - 09/15/2020 6:39 AM CDT I have reviewed the surgical (or preoperative) H&P that is linked to this encounter, and examined the patient. There are no significant changes Source Note - Bartolo Provider - 09/11/2020 12:05 PM CDT documented in this encounter Miscellaneous Notes Brief Op Note - Karen Irvin APRN CNP - 09/15/2020 12:01 PM CDT [facility] Brief Operative Note Pre-operative diagnosis: Endometrial carcinoma (H) [C54.1] Post-operative diagnosis Same as pre-operative diagnosis Procedure: Procedure(s): ROBOTIC ASSISTED TOTAL LAPAORSCOPIC HYSTERECTOMY, BILATERAL SALPINGO OOPHORECTOMY, WASHINGS, INTRAOPERATIVE SENTINEL NODE MAPPING AND BIOPSY, LEFT PELVIC LYMPHADENECTOMY, MINI LAPAROTOMY, REPAIR VAGINAL LACERATION Surgeon: Surgeon(s) and Role: * Tuyet Stubbs MD - Primary Anesthesia: General Estimated blood loss: Minimal Drains: None Specimens: ID Type Source Tests Collected by Time Destination 1 : RIGHT SENTINEL LYMPH NODE Tissue Lymph Node(s), [place] SURGICAL PATHOLOGY EXAM Tuyet Stubbs MD 09/15/2020 9:01 AM 2 : LEFT SENTINEL LYMPH NODE Tissue Lymph Node(s), [place] SURGICAL PATHOLOGY EXAM Tuyet Stubbs MD 09/15/2020 9:10 AM 3 : LEFT PELVIC LYMPH NODE Tissue Lymph Node(s), Pelvis, Left SURGICAL PATHOLOGY EXAM Tuyet Stubbs MD 09/15/2020 9:11 AM 4 : Pelvic washings Washings Pelvis NON-GYNECOLOGIC CYTOLOGY Tuyet Stubbs MD 09/15/2020 9:30 AM 5 : Uterus, Cervix, Bilateral Fallopian Tubes & Ovaries Tissue Uterus, Cervix, Bilateral Fallopian Tubes & Ovaries SURGICAL PATHOLOGY EXAM Tuyet Stubbs MD 09/15/2020 9:40 AM Findings: None. Complications: None. Implants: * No implants in log * Op Note - Tuyet Stubbs MD - 09/15/2020 10:12 AM CDT Procedure Date: 09/15/2020 PREOPERATIVE DIAGNOSES: 1. Low-grade endometrioid adenocarcinoma of the endometrium. 2. Morbid obesity with a body mass index of 48 kg/m2. POSTOPERATIVE DIAGNOSES: 1. Low-grade endometrioid adenocarcinoma of the endometrium. 2. Morbid obesity with a body mass index of 48 kg/m2. SURGEON: Ibis Stubbs MD MORTGAGE PROCESSOR: Karen Irvin CNP ANESTHESIA: General endotracheal anesthesia. PROCEDURES: Robotic-assisted total laparoscopic hysterectomy, bilateral salpingo-oophorectomy, washings, intraoperative sentinel lymph node mapping and bilateral sentinel lymph node biopsies, left pelvic lymph node biopsy, mini laparotomy, and repair of vaginal tear. INDICATIONS FOR PROCEDURE: The patient is a 59-year-old female with known Down syndrome. On 05/30/2020, she presented for evaluation of postmenopausal bleeding that occurred for 7 days in 04/2020. A pelvic ultrasound was obtained and revealed a uterus measuring 7.3 x 3 x 3.5. The endometrial lining was 7 mm in thickness. There was non-visualization of the ovaries. On 07/02/2020, she underwent a hysteroscopy D and C, and multiple polyps were seen. Pathology revealed FIGO grade 1 endometrioid adenocarcinoma of the endometrium, endometrial polyps. MLH1 and PMS2 were non-staining, and the MLH1 promoterwas hypermethylated. The patient does have a BMI of 48 kg/m2. She was seen in consultation in my office. We elected to proceed with robotic hysterectomy and staging. FINDINGS: The patient had a very small uterus. She had some minor adhesions of the sigmoid colon to the right pelvic sidewall. She did not have any pathologically enlarged lymph nodes. We did map sentinel lymph nodes bilaterally between the proximal external iliac vein and the continuation of the hypog astric artery. Below this on the left side, there was also another lymph node that I biopsied in theprocess. There was no gross evidence of extrauterine disease. DESCRIPTION OF PROCEDURE: The patient was taken to the operating room. She received broad-spectrum antibiotic prophylaxis. Knee-high sequential compression devices were placed on her lower extremities.She was brought to the operating room. She was placed in a supine position on a pink pad on the operating room table. General endotracheal anesthesia was administered in the usual fashion. Once intubated, she was repositioned in low lithotomy position using well-padded Yellofin stirrups. Her arms werepadded and held at her side with draw sheets over her arms and hands. Shoulder braces were applied to her shoulders. A Viera was placed above her forehead. A foam donut was placed over her face. She was prepped and draped in the usual sterile fashion. A timeout was conducted and everyone agreed upon the procedure. I inserted a Tiesha speculum into the vagina. I visualized the cervix. I grasped thecervix at 12 o'clock with a single-tooth tenaculum. I had a diluted ICG dye that had been diluted in20 mL of sterile water. It was in a 10 mL controlled-release syringe and attached to a 22-gauge spinal needle, 1 mL of this dye was injected at 3 and 9 o'clock, 1 cm into the cervical stroma and then 1mL submucosally in both of these areas. I then injected another 1.5 cm at 12 o'clock and 6 o'clock for a total of 7 mL of dye being used. The instruments were removed from her vagina. I then placed a sm all EEA sizer into her vagina. I changed my gloves. I had demarcated the supraumbilical ports by putting her in 32 degrees of Trendelenburg prior to placing the ICG dye. I infiltrated the supraumbilical port site with 0.5% Marcaine with epinephrine. I made a small oumar in the skin. A Veress needle was easily introduced into the peritoneal cavity. Opening pressure was 3-4 mmHg. The abdomen was insufflated with carbon dioxide to create a diffuse pneumoperitoneum. Pressure limits were set and maintained at or below 15 mmHg throughout the case. With establishment of the pneumoperitoneum, the Veress need le was removed and replaced with an 8 mm da Aldo trocar. The camera was then introduced, confirmingintraperitoneal position, showing no upper or mid abdominal pathology. Under direct visualization, 4additional port sites were placed. An 8 mm da Aldo port was placed 8 cm to the right of the camera port in the upper abdomen, two 8 mm da Aldo ports were placed 8 cm and 16 cm to the left of the camera port in the upper abdomen. She was then placed in 32 degrees of Trendelenburg with gravitational displacement of bowel into the upper abdomen. An 8 mm AirSeal port was placed above the right anteriorsuperior iliac spine. The robot was docked in the usual fashion. Monopolar scissors were placed in the right upper robotic arm. A [place] bipolar was placed in the medial left upper robotic arm. A ProGrasp was placed in the lateral left robotic arm. These instruments were advanced to some adhesions of the sigmoid colon to the left pericolic gutter on the left pelvic peritoneum. I then went to the ope rative console and took a position. I took down the adhesions of the sigmoid colon from the left pelvic sidewall and pericolic gutter. I then used the ProGrasp to elevate the right round ligament. It was cauterized with the [place] bipolar and divided with the monopolar scissors. I then opened up the posterior broad ligament peritoneum lateral to the ovarian vessels, isolated the ovarian vessels at the pelvic brim by creating a defect underneath them and extending it towards the uterus. The ovarianvessels were cauterized at the pelvic brim with the [place] bipolar and then divided with the monopolar scissors. I then opened up the retroperitoneal spaces, carefully dissecting out the pararectal and paravesical spaces. I turned on the Firefly and immediately could see a single sentinel lymph nodealong the medial aspect of the external iliac vein. This was dissected free of the external iliac vein and the medial aspect of the continuation of the hypogastric and it was passed off to spoon graspers, which were taken out through the accessory port site. I then went to the left-hand side. Again, the round ligament was cauterized and divided. I opened up the posterior broad ligament on this side, isolated the ovarian vessels. They were cauterized and divided as well. The peritoneum was undercut towards the uterus. I then opened up the pararectal and paravesical spaces on this side and again withapplication of Firefly, I could see an area of mapping again in the same position we had seen on theother side. I dissected this out and passed it off to spoon graspers and Karen Irvin removed them through the accessory port site. There was another lymph node immediately below where the green dye had been, and I dissected this node and sent it off as a left pelvic lymph node as well as it was sittingright on the external iliac vein. The vesicouterine peritoneum was divided with the monopolar scissors. I then took the bladder down off the anterior surface of the cervix and upper vagina. On both sides, the soft tissues at the isthmus were cauterized, including the main trunk of the uterine artery. Once the main trunk of the uterine artery had been cauterized on either side, it was divided on the right-hand side. I then made my way down the right cardinal ligament, cauterizing and dividing the soft tissues free of the cervix down to and including the uterosacral ligament. I then repeated this on the left-hand side. I had Karen Irvin push the EEA sizer into the anterior fornix and then making surethe bladder was adequately down, made an anterior colpotomy at the cervicovaginal junction and circumferentially divided the cervix free. Karen Irvin then exchanged the 8 mm AirSeal port for a 12 mm [employer] port. Through this, she introduced a 10 mm anchor bag and the uterus, cervix, tubes, andovaries were put within it and then cinched down and the string was cut. I now used a large da Vincineedle charter coach driver and the [place] bipolar to close the vaginal cuff. This was done with 0 PDS sutures anchored at 3 and 9 o'clock with a running full-thickness [id number] closure towards the midline being performed and the two sutures were tied together. The pelvis was then irrigated and this was sent off as washings. I then had Karen remove the instruments and undock the robot. She had already pulled the bag along with the [employer] medical port through the patient's abdomen and held it at the skin level. I then came over after the robot was undocked, extended the incision slightly and divided the underlying fascia and muscles enough to allow the bag with the uterus to be delivered. I then closed the fascial defect with 0 Vicryl suture in a running fashion, and then we closed all of the incision sites with 4-0 Monocryl in an interrupted fashion to reapproximate the subcutaneous tissue and4-0 Monocryl in a subcuticular fashion to reapproximate the skin. Benzoin was placed around the incision. Steri-Strips laid over the incisions. The supraumbilical area was a little oozy, so we used a pressure dressing on this as well. Prior to reversing her anesthesia, I did take the EEA out and therewas a small tear at 6 o'clock at the hymenal ring. This was repaired with 3-0 Vicryl suture with 2 [id number] sutures and a single interrupted suture. The patient's anesthesia was reversed. She was extubated and taken to recovery room in stable condition. Estimated blood loss for the procedure was 10 mL. Tuyet Stubbs MD MT: [facility] Name: NEGRA SMART Account: [id number] : 1960 Procedure Date: 09/15/2020 Document: [id number] cc: MD BEN Eubanks PA-C documented in this encounter Plan of Treatment Not on filedocumented as of this encounter Procedures Procedure Name Priority Date/Time Associated Diagnosis Comme nts NON-GYNECOLOGIC Routine 09/15/2020 9:30 AM Result s for this CYTOLOGY CDT procedure are i n the results section. SURGICAL PATHOLOGY Routine 09/15/2020 9:01 AM Res ults for this EXAM CDT procedure are i n the results section. HYSTERECTOMY, 09/15/2020 8:07 AM Endometrial TOTAL, CDT carcinoma (H) ROBOT-ASSISTED, USING DA ALDO XI, WITH SALPINGO-OOPHORECTO MY AND LYMPHADENECTOMY, FOR NEOPLASM STAGING POTASSIUM STAT 09/15/2020 7:39 AM Results f or this CDT procedure are i n the results section. GLUCOSE BY METER Routine 09/15/2020 7:05 AM Resul ts for this CDT procedure are i n the results section. SARS-COV2 STAT 09/15/2020 6:37 AM Results f or this (COVID-19) VIRUS CDT procedure a re in RT-PCR the results section. COVID-19 VIRUS STAT 09/15/2020 6:37 AM Results for this (CORONAVIRUS) BY CDT procedure a re in PCR the results section. LAB RESULT - HIM 08/21/2020 12:00 AM SCAN CDT EKG CARDIAC - HIM 06/26/2020 12:00 AM SCAN CDT documented in this encounter Results Cytology, non-gynecologic (09/15/2020 9:30 AM CDT) Component Value Ref Test Analysis Performed At [facility] Range Method Time Signature Final Specimen A; Pelvic washings 09/17/2020 S H Electronically Diagnosis 10:59 AM LABORATORY signed by Interpretation: CDT Roman De La Torre fic, MD Negative for malignancy on 09/17/2020 at 10:59 AM Adequacy: Satisfactory for evaluation Clinical 59 year old 09/17/2020 Information female. 10:59 AM LABORATORY Endometrial CDT carcinoma. Gross A. Pelvis, Pelvic washings, Pelvic Wash: 09/17/2020 [facility] Description Received 50 ml of red, cloud y fluid, processed as 1 Pap stained Autocyte and one hematoxylin and eosin stained cell block 10:59 AM LABORATORY CDT Microscopic Microscopic examination is performed. 09/17/2020 [facility] Description 10:59 AM LABORATORY CDT Performing The technical 09/17/2020 [facility] Labs component of 10:59 AM LABORATORY this testing CDT was completed at [facility] Specimen Anatomical Collection Method Collection Time Receive d Time (Source) Location / / Volume Laterality Washings [facility] / 09/15/2020 9:30 AM 2020 Unknown CDT 12:16 PM CDT Tuyet Stubbs MD [facility] Performing Organization Address City/State/ZIP Code [place] [id number] [phone] Acute Care Lab [address] 1st floor, [address] [facility] LAB[facility]ATORY [address] [place], [place] [phone] Surgical Pathology Exam (09/15/2020 9:01 AM CDT) Component Value Ref Test Analysis Performed Pathologis t Range Method Time At Signature Case Report Surgical Pathology Report ? Case: [id number] ? Authorizing Provider: ??Case y, Tuyet Ramsey MD ?? Collected: ? 09/15/2020 09:01 AM ? 1 5:23 PM LABORATOR Y Ordering Location: ? [facility] [place] ?Received: ?09/15/2020 12:20 PM ? CDT ? [facility] OR ? Pathologist: ? Nikole Regalado, ? MD ? Specimens: ?? A) - Lymph Nod e(s), [place], RIGHT SENTINEL LYMPH NODE ? B) - Lymp h Node(s), [place], LEFT SENTINEL LYMPH NODE ? C) - Lymp h Node(s), Pelvis, Left, LEFT PELVIC LYMPH NODE ? D) - Uter us, Cervix, Bilateral Fallopian Tubes & Ovaries ? Final A-D. Uterus with bilateral s alpingooophorectomy and separately submitted right sentinel lymph node (1 node), left sentinel lymph node (no lymph node tissue present) and left pelvic lymph node (1 node), excisions: Electronically Diagnosis -2 total lymph nodes identif ied (right sentinel and left pelvic), both negative for metastatic carcinoma 1 5:23 PM ONEYDA MOSES signed by Sabine, -Benign bilateral fallopian tubes and ovaries RASHIDA Agustin -Benign hyalinized leiomyoma, 1.9 cm MD Erika on -Benign paracervical soft tissue 09/16/2020 at -Normal cervix and endocervix 5:23 PM -Adenocarcinoma, FIGO grade 1, 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 Procedure: ?Total hysterectomy and bilateral salping o-oophorectomy ?? Hysterectomy Type: ?Laparoscopic, robotic-assisted TUMOR ?? Tumor Site: ?Endometrium ?? 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 Histologic Grade: ?FIGO grade 1 ?? Myometrial Invasion: ?Present ? Depth of Myometrial Invasion (Millimeters): ?2 mm ? Myometrial Thickness (Millimeters): ?11 mm ? Percentage of Myometrial Invasion: ?18 % ?? Adenomyosis: ?Present, uninvolved by carcinoma ?? Uterine Serosa Involvement: ?Not identified ?? Lower Uterine Segment Involvement: ?Not identified ?? Cervical Stromal Involvement: ?Not identified ?? Other Tissue / Organ Involvement: ?Not applicable ?? Peritoneal Ascitic Fluid: ?Results pending ?? Lymphovascular Invasion: ?Not identified LYMPH NODES ?? : ?All lymph nodes negative for tumor cells ? Total Number of Pelvic Nodes Examined: ?1 ? Number of Pelvic [place] Nodes Examined: ?1 ? Total Number of Para-aortic Nodes Examined: ?0 PATHOLOGIC STAGE CLASSIFICATION (pTNM, AJCC 8th Edition) ? Primary Tumor (pT): ?pT1a ?? Regional Lymph Nodes (pN): ?pN0 FIGO STAGE ?? FIGO Stage: ?IA ADDITIONAL FINDINGS ?? Additional Findings: ?None identified Clinical Biopsy diagnosis Information (u.sit system 1 5:23 PM ONEYDA MOSES [id number], July 02T 2020, showing FIGO grade 1 adenocarcinoma with loss of MLH1 and PMS2 and subsequent identification of ML H-1 promoter hyper methylation Case Images 1 5:23 PM LABORATORY CDT Gross A. Lymph Node(s), [place], RIGHT SENTINEL LYMPH NODE: SH Description The specimen is received in formalin, labeled with the patient's name, medical record number and other identifying information designated right sentinel lymph node. It consists of a 0.9 cm candidate l 1 5:23 PM LABORATORY ymph node. The lymph node is trisected and entirely astudillo bmitted in 1 cassette. CDT B. Lymph Node(s), [place], LEFT SENTINEL LYMPH NODE: The specimen is received in formalin, labeled with the patient's name, medical record number and other identifying information designated left sentinel lymph node. It consists of an aggregate of yello w lobulated adipose tissue. No candidate lymph nodes are grossly appreciated. The specimen is entirely submitted in 1 cassette. C. Lymph Node(s), Pelvis, Left, LEFT PELVIC LYMPH NODE : The specimen is received in formalin, labeled with the patient's name, medical record number and other identifying information designated left pelvic lymph node. It consists of a 0.9 cm candidate lymp h node. The lymph node is trisected and entirely submitted i n 1 cassette. D. Uterus, Cervix, Bilateral Fallopian Tubes & Ovaries, Uterus, Cervix, Bilateral Fallopian Tubes & Ovaries: The specimen is received in formalin, labeled with the patient's name, medical record number and other identifying information designated uterus, cervix, bilateral fallopian tubes and ovaries. It cons ists of a 58.8 g, 8.6 x 4.5 x 4.1 cm hysterectomy specimen. There are attached adnexa and a 4.1 x 2.1 cm cervix containing a 0.4 cm os. The right 4.5 x 0.5 cm and left 4.6 x 0.5 cm fimbriated fallopian tube to contain a stellate l umen. The right 1.6 x 1.1 x 0.6 cm and left 1.6 x 1.1 x 0.6 cm lentz-white cerebriform ovaries each contain a normal ovarian parenchyma. The posterior fundus of the uterus cont ains a 1.6 cm pedunculated t an-white nodule. The nodule is devoid of hemorrhage, necrosis and cystic change. The paracervical soft tissue is inked black and the uterus is bisected to reveal a 4.1 x 1.0 cm trabeculated endocervical canal leading to a 3.5 x 1.5 cm endometrial cavity. No definitive mass is locate d within the endometrial cav ity. Further sectioning the specimen reveals endometrial thickness averaging 0.2 cm. Myometrial thickness averages 1.0 cm. Advertising Dispatch Clerk sections are submitted as follows: D1-right fallopian tube D2-right ovary D3-left fallopian tube D4-left ovary D5-nodule D6-right parametrium/paracervical soft tissue, en face D7-left parametrium/paracervical soft tissue, en face D8-anterior cervix and CARMEN D9-posterior cervix and CARMEN [id number] anterior endomyometrium submitted f rom fundus to CARMEN [id number] posterior endomyometrium submit efraín from fundus to CARMEN (LLOYD Francis) Microscopic A-D. A formal Description microscopic 1 5:23 PM LABORATORY examination has been CDT performed Performing The technical Labs component of this 1 5:23 PM LABORATORY testing was completed CDT at [facility] Specimen Anatomical Collection Method Collection Time Receive d Time (Source) Location / / Volume Laterality Tissue STRUCTURE OF LYMPH 09/15/2020 9:01 AM 10/2020 NODE / Unknown CDT 12:20 PM CDT Tissue specimen STRUCTURE OF LYMPH 09/15/2020 9:10 AM 09/15/2020 (specimen) NODE / Unknown CDT 12:20 PM CDT Tissue specimen PELVIC LYMPH NODE 09/15/2020 9:11 AM 0 09/15/2020 (specimen) STRUCTURE / CDT 12:20 PM CDT Unknown Tissue specimen UTERUS, FALLOPIAN 09/15/2020 9:40 AM 0 09/15/2020 (specimen) TUBES AND OVARIES, CDT 12:20 PM CDT CS / Unknown Tuyet Stubbs MD LAB - JAIMEE GARCIA Performing Organization Address City/State/ZIP [place] [address] [phone] [facility] [address] 1[address] floor, [address] Potassium (09/15/2020 7:39 AM CDT) athologist Signature Potassium 4.4 3.4 - 5.3 09/15/2020 LABORATORY mmol/L 8:02 AM CDT Specimen Anatomical Collection Method / Collection Time Recei yecenia Time (Source) Location / Volume Laterality Blood STRUCTURE OF LEFT Venipuncture / 09/15/2020 7:39 09/15 7:48 UPPER LIMB / Unknown AM CDT AM CDT Unknown Jin Jarrett MD LAB - BLOOD ORDERABLES Performing Organization Address City/State/ZIP Code Phon e Number LABORATORY [facility] [place] [phone] [facility] [address] 1[address], [address] Glucose by meter (09/15/2020 7:05 AM CDT) athologist Signature GLUCOSE BY 95 70 - 99 09/15/2020 LABORATORY METER POCT mg/dL 7:12 AM CDT POC Specimen Anatomical Collection Method Collection Time Receive d Time (Source) Location / / Volume Laterality Blood BLOOD SPECIMEN / 09/15/2020 7:05 AM 09/15 7:12 Unknown CDT AM CDT Tyuet Stubbs MD LAB - BEAKER POCT Performing Organization Address City/State/ZIP Code Phon e Number LABORATORY POC [facility] [place] [phone] Care [facility] [address], [address] SARS-COV2 (COVID-19) Virus RT-PCR (09/15/2020 6:37 AM CDT) Analysis Performed At Patho logist Time Signature SARS CoV2 PCR Negative Negative 09/15/2020 LABORATORY 7:09 AM CDT Comment: NEGATIVE: SARS-CoV-2 (COVID-19) RNA not detected, presumed negative. Specimen Anatomical Location / Collection Method Collection Andres e Received Time (Source) Laterality / Volume Swab NASOPHARYNGEAL Non-blood 09/15/2020 6:37 09/15/2020 6:44 STRUCTURE / Unknown Collection / AM CDT AM CDT Unknown Narrative LABORATORY - 09/15/2020 7:09 AM CDT Testing was performed using the lauri?? SARS-CoV-2 & Influenza A/B Assay on the lauri?? Cris?? System. ??This test shoul d be ordered for the detection of SARS-COV-2 in individuals who meet SARS-CoV-2 clini genia and/or epidemiological criteria. Test performance is unknown in asymptomatic p atients. ??This test is for in vitro diagnostic use under the FDA EUA for lab oratories certified under CLIA to perform moderate and/or high complexity testing. This test has not been FDA cleared or approved. ??A negative test does not rul e out the presence of PCR inhibitors in the specimen or target RNA in concentration below the limit of detection for the assay. The possibility of a false negative shou ld be considered if the patient's recent exposure or clinical presentation sugges ts COVID-19. ??[facility] are certified under the Clinical Laborat ory Improvement Amendments of 1988 (CLIA-88) as qualified to perform moderate and/or high complexity laboratory testing. Tuyet Stubbs MD LAB - MICRO GENERAL ORDERABL ES Performing Organization Address City/State/ZIP [place] [phone] Care Lab [address], [address] LAB RESULT - HIM SCAN (08/21/2020 12:00 AM CDT) Specimen (Source) Anatomical Location Collection Method / Collectio n Time Received Time / Laterality Volume 08/21/2020 Narrative This result has an attachment that is no t available. Provider Scan [facility]-BEAKER LAB TESTING EKG CARDIAC - HIM SCAN (06/26/2020 12:00 AM CDT) Specimen (Source) Anatomical Location Collection Method / Collectio n Time Received Time / Laterality Volume 06/26/2020 Narrative This result has an attachment that is no t available. Provider Scan ECG ORDERABLES documented in this encounter Visit Diagnoses Diagnosis Endometrial carcinoma (H) - Primary Malignant neoplasm of corpus uteri, exce pt isthmus Endometrial carcinoma (H) Malignant neoplasm of corpus uteri, exce pt isthmus Down's syndrome Morbid obesity with BMI of 45.0-49.9, ad ult (H) Diabetes mellitus type II, controlled (H ) Type II or unspecified type diabetes donell litus without mention of complication, not stated as uncontrolled GERD (gastroesophageal reflux disease) Esophageal reflux Gout Gout, unspecified Essential hypertension Unspecified essential hypertension Hyperlipidemia Other and unspecified hyperlipidemia Chronic back pain Backache, unspecified documented in this encounter Admitting Diagnoses Diagnosis Endometrial carcinoma (H) Malignant neoplasm of corpus uteri, exce pt isthmus documented in this encounter Administered Medications Inactive Administered Medications - up to 3 most recent administrations Medication Order MAR Action Action Date Dose Rate Site acetaminophen (TYLENOL) tablet 975 Given 09/15/2020 6:52 AM CDT 975 mg mg 975 mg, Oral, ONCE, On Tue09/15/20 at 0630, For 1 dose, Give within 60 min of procedure. Hold if patient has taken acetaminophen within 4 hours. Maximum acetaminophen dose from all sources = 75 mg/kg/day not to exceed 4 grams/day., Pre-procedure oxyCODONE (ROXICODONE) tablet 5 mg 5 mg, Oral, EVERY 4 HOURS PRN, moderate to severe pain, Starting on Tue09/15/20 at 1017, Max: 5 mg for opioid-na??ve patient. documented in this encounter Active and Recently Administered Medications Times are shown in CDT. Scheduled Medication Order 09/13/2020 09/14/2020 09/15/2020 acetaminophen (TYLENOL) tablet 975 mg (COMPLETED) 0652 (Given - Provider: Sravani Mock RN) 975 mg, Oral, ONCE, On Tue09/15/20 at 063 0, For 1 dose, Give within 60 min of procedure. Hold if patient has taken acetaminophen within 4 hours. Maximum acetaminophen dose from all sources = 75 mg/kg/day not to exceed 4 grams/day., Pre-procedure acetaminophen (TYLENOL) tablet 975 mg 975 mg, Oral, ONCE, On Tue09/15/20 at 163 0, For 1 dose, Administer 6 hours after pre-op dose, if given. Maximum acetaminophen dose from all sources = 75 mg/kg/day not to exceed 4 grams/day. ceFAZolin (ANCEF) intermittent infusion 2 g in 100 mL dextrose PRE-MIX (COMPLETED) 0734 (Handoff - Prov ider: Sravani Mock RN)0809 (Given - Provider: Clare Hogan APRN CRNA) Routine, 2 g, Intravenous, PRE-OP/PRE-NJ OCEDURE, Starting on Tue09/15/20 at 0616, For 1 dose, Give first dose within 1 hour PRIOR to incision. If patient weight is greater than or equal to 120 kg increas e dose to 3 g., Indications: Perioperative Pharmacoprophylaxis, Pre-procedure ibuprofen (ADVIL/MOTRIN) tablet 800 mg 800 mg, Oral, ONCE, On Tue09/15/20 at 163 0, For 1 dose, Administer when patient tolerating oral intake AND 6 hours after last ketorolac (TORADOL) dose, if given. Give with food. PRN Medication Order 09/13/2020 09/14/2020 09/15/2020 bupivacaine 0.5 % - EPINEPHrine 1:200,000 injection (CANCELED) 0946 (Given - Provider: Tuyet Stubbs MD) PRN, Starting on Tue09/15/20 at 0946, Intra-procedure indocyanine green (IC-GREEN) injection (CANCELED) 0842 (Given - Provider: Tuyet Stubbs MD) PRN, Starting on Tue09/15/20 at 0842, Intra-procedure oxyCODONE (ROXICODONE) tablet 5 mg 5 mg, Oral, EVERY 4 HOURS PRN, moderate to severe pain, Starting on Tue09/15/20 at 1017, Max: 5 mg for opioid-na??ve patient. oxyCODONE (ROXICODONE) tablet 5 mg 5 mg, Oral, ONCE PRN, other, pain contro l or improvement in physical function.??, Starting on Tue09/15/20 at 1103, For 1 dose, Hold oral PRN dose for analgesic side effects. Notify provider to assess for uncontrolled pain or analgesic side eff ects. Hold while on IV MUSEUM REGISTRAR or with regular IV opioid dosing. sodium chloride 0.9% (bag) irrigation (CANCELED) 0841 (Given - Provider: Tuyet Stubbs MD) PRN, Starting on Tue09/15/20 at 0841, Intra-procedure sodium chloride 0.9% (bottle) irrigation (CANCELED) 0841 (Given - Provider: Tuyet Stubbs MD) PRN, Starting on 09/15/20 at 0840, Intra-procedure documented in this encounter Care Teams Public Works Laborer Relationship Specialty Start Date End Date Ben Arredondo PA-C PCP - General 08/25/[address] [place] [address] documented as of this encounter
--- OUTSIDE RECORDS SUMMARY | 2021-12-10 13:54 | XMS_ITS | Encounter Summary ---
:1960 Author Organization [facility] Address [address] [place] [id number] Care Team Providers Name Role Phone Unavailable Primary Care Provider Unavailable Encounter Details Date Type Department Care Team Description 11/13/2007 Results Only [facility] Daren Zheng, Hospital Results [place] [address] Social History Tobacco Use Types Packs/Day Years Used Date Smoking Tobacco: Never Assessed Sex Assigned at Date Recorded Not on file documented as of this encounter Plan of Treatment Not on filedocumented as of this encounter Procedures Procedure Name Priority Date/Time Associated Diagnosis Comme [facility] MAMMO SCREEN Routine 11/13/2007 11:34 AM Resul ts for this BILATATERAL, INCL CDT procedure are in CAD WHEN PERF the results section. documented in this encounter Results SCREENING MAMMOGRAPHY DIGITAL (BILAT) (11/13/2007 11:34 AM CDT) Anatomical Region Laterality Modality Other Specimen (Source) Anatomical Collection Method Collection Time Re ceived Time Location / / Volume Laterality 11/13/2007 11:34 AM CDT Impressions 11/13/2007 12:21 PM CDT SCREENING MAMMOGRAM, BILATERAL, DIGITAL w/ CAD BREAST SYMPTOMS/COMPARISON:Routine. ?? BREAST PARENCHYMAL PATTERN: heterogeneou sly dense. FINDINGS: Possible focal density left br east. Additional views recommended. IMPRESSION: ACR BI-RAD Category 0. Incom plete exam. Additional imaging evaluation recommende d: ??Diagnostic mammography. Breast ultrasound. Jessika Zheng MD SPECIAL IMAGING STUDIES documented in this encounter Visit Diagnoses Not on filedocumented in this encounter
--- OUTSIDE RECORDS SUMMARY | 2021-12-10 13:54 | XMS_ITS | Encounter Summary ---
:1960 Author Organization [place] Address [facility] [place] [address] Care Team Providers Name Role Phone Ben Arredondo PA-C Primary Care Provider Reason for Visit Auth/Cert Specialty Diagnoses / Procedures Referred By Contact Refer red To Contact Surgery Diagnoses Endometrial carcinoma (H) Endometrial carcinoma (H) [C54.1] Sh Periop Services Procedures ZZC LAP,PELVIC LYMPHADENECTOMY/BX HC LAPAROSCOPY W TOT HYSTERECTUTERUS <=250 GRAM W TUBE/OVARY ZZC LAPAROSCOPY TOT HYSTERECTOMY UTERUS >250 GRAM W TUBE/OVARY [address] ROBOTIC ASSISTED TOTAL LAPAO RSCOPIC HYSTERECTOMY, BILATERAL SALPINGO OOPHORECTOMY, WASHINGS, INTRAOPERATIVE SENTINEL NODE MAPPING AND BIOPSY, POSSIBLE PELVIC AND PARA-AORTIC LYMPHADENECTOMY, POSSIBLE MINI LAPAROTOMY LL[address] [place] [phone] Phone: Referral ID Status Reason Start Date Expiration Date Visits Requ ested Visits Authorized [id number] 1 1 Encounter Details Date Type Department Care Team Description 09/15/2020 Surgery [facility] EnocTuyet ROBOTIC SISTED TOTAL [place] PeriOP MD Roxy LAPAORSCOPIC Services [place] ONCOLOGY HYSTERECTOMY, BILATERAL [address], HEMATOLOGY SALPINGO OOPHORECTOMY, [address] WASHINGS, INTRAOPERATIVE [place] [phone] [place] [address] SENTINEL NODE MAPPING AND [phone] [place] [address] BIOPSY, LEFT PELVIC [phone] (Wo rk) LYMPHADENECTOMY, MINI LAPAROTOM Y, REPAIR VAGINAL LACERAT ION Surgery Details Date/Time Status Location OR Service Patient Case Case Traum a Class Class Type Case? 09/15/20 8:00 Posted OR OR [facility] Salas Same Day AM 42 Gynecology Surgery Panel 1 Procedure LRB Anes Op Region Wound Class Commen ts ROBOTIC ASSISTED TOTAL Bilateral General Abdomen II-Clean Cont aminated LAPAORSCOPIC HYSTERECTOMY, BILATERAL SALPINGO OOPHORECTOMY, WASHINGS, INTRAOPERATIVE SENTINEL NODE MAPPING AND BIOPSY, LEFT PELVIC LYMPHADENECTOMY, MINI LAPAROTOMY, REPAIR VAGINAL LACERATION Surgeon Surgeon Role Service Panel Tuyet Stubbs MD Primary [facility] Gynecology 1 documented in this encounter Social History Tobacco [...] Sign Reading Time Taken Comments Blood Pressure 134/73 09/15/2020 10:15 AM CDT Pulse 70 09/15/2020 10:15 AM CDT Temperature 36.1 ??C (96.9 ??F) 09/15/2020 10:04 AM CDT Respiratory Rate 16 09/15/2020 10:15 AM CDT Oxygen Saturation 100% 09/15/2020 10:15 AM CDT Inhaled Oxygen Concentration - - [...] or school ?? Do Not go to evangelical, exceptional children teacher assistant centers, shopping, or other public places. ?? [...] at home, please visit the CDCwebsite at https://www.cdc.gov/coronavirus/2019-ncov/about/dsxfy-fncn-ehpr.html For more options for care at [facility], please visit our website at [email or web address] If you have questions or concerns about your procedure, call Dr. Stubbs [phone] documented in this encounter Medications at Time [...] Take 1-3 tablets by 30 tablet 0 10/2020 tabletIndications: mouth 2 times daily Endometrial [...] Elizabeth Mead - 09/15/2020 6:20 AM CDT PLANT SCIENCE PROFESSOR medications completed by Medication Scribe day of [...] APRN CNP - 09/15/2020 12:01 PM CDT [facility] Brief Operative Note Pre-operative diagnosis: Endometrial [...] RIGHT SENTINEL LYMPH NODE Tissue Lymph Node(s), [place] SURGICAL PATHOLOGY EXAM Tuyet Stubbs MD 09/15/2020 9:01 AM 2 : LEFT SENTINEL LYMPH NODE Tissue Lymph Node(s), [place] SURGICAL PATHOLOGY EXAM Tuyet Stubbs MD 09/15/2020 [...] of 48 kg/m2. SURGEON: Ibis Stubbs MD TRAFFIC MAINTENANCE SUPERVISOR: Karen Irvin CNP ANESTHESIA: General endotracheal anesthesia. [...] I now used a large da Vincineedle emergency medical technician/driver and the [place] bipolar to close the vaginal cuff. This was done with 0 PDS sutures anchored at 3 and 9 o'clock with a running full-thickness urrodyyx-ie-agrdetufi closure towards the midline being performed and [...] repaired with 3-0 Vicryl suture with 2 ftlirn-rk-gjwmy sutures and a single interrupted suture. The patient's anesthesia was reversed. She was extubated and taken to recovery room in stable condition. Estimated blood loss for the procedure was 10 mL. Tuyet Stubbs MD MT: [facility] Name: NEGRA SMART Account: [id number] : 1960 Procedure Date: 09/15/2020 Document: [id number] cc: MD BEN Eubanks PA-C documented in [...] Component Value Ref Test Analysis Performed At [facility] Range Method Time Signature Final Specimen A; Pelvic washings 09/17/2020 S H Electronically Diagnosis 10:59 AM LABORATORY signed by Interpretation: CDT Roman De La Torre fic, MD Negative for malignancy on 09/17/2020 at 10:59 AM Adequacy: Satisfactory for evaluation Clinical 59 year old 09/17/2020 Information female. 10:59 AM LABORATORY Endometrial CDT carcinoma. Gross A. Pelvis, Pelvic washings, Pelvic Wash: 09/17/2020 [facility] Description Received 50 ml of red, cloud y fluid, processed as 1 Pap stained Autocyte and one hematoxylin and eosin stained cell block 10:59 AM LABORATORY CDT Microscopic Microscopic examination is performed. 09/17/2020 Description 10:59 AM LABORATORY CDT Performing The technical 09/17/2020 [facility] Labs component of 10:59 AM LABORATORY this testing CDT was completed at [facility] Specimen Anatomical Collection Method Collection Time Receive d Time (Source) Location / / Volume Laterality Washings PELVIC REGION / 09/15/2020 9:30 AM 2020 Unknown CDT 12:16 PM CDT Tuyet Stubbs MD [facility] Performing Organization Address City/State/ZIP Code [place] [phone] Acute Care Lab [address] [place], [place] [address]chichi. [place] 1st floor, Room 20B [facility] LABORATORY [address] [place] [phone] Surgical Pathology Exam (09/15/2020 9:01 AM CDT) Component Value Ref Test Analysis Performed Pathologis t Range Method Time At Signature Case Report Surgical Pathology Report ? Case: [id number] ? Authorizing Provider: ??Mega y, Tuyet Ramsey MD ?? Collected: ? 09/15/2020 09:01 AM ? 1 5:23 PM LABORATOR Y [facility] ?Received: ?09/15/2020 12:20 PM ? CDT ? [facility] ? Pathologist: ? Sabine, Nikole James, ? MD ? Specimens: ?? A) - Lymph Nod e(s), [place], RIGHT SENTINEL LYMPH NODE ? B) - Lymp h Node(s), [place], LEFT SENTINEL LYMPH NODE ? 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 Number of Pelvic Galloway Nodes Examined: ?1 ? Total Number of Para-aortic Nodes Examined: ?0 PATHOLOGIC STAGE CLASSIFICATION (pTNM, AJCC 8th Edition) ? Primary Tumor (pT): ?pT1a ?? Regional Lymph Nodes (pN): ?pN0 FIGO STAGE ?? FIGO Stage: ?IA ADDITIONAL FINDINGS ?? 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 Lymph Node(s), [place], RIGHT SENTINEL LYMPH NODE: Description The specimen is received in formalin, labeled with the patient's name, medical record number and other identifying information designated right sentinel lymph node. It consists of a 0.9 cm candidate l 1 5:23 PM LABORATORY ymph node. The lymph node is trisected and entirely astudillo bmitted in 1 cassette. CDT B. Lymph Node(s), [place], LEFT SENTINEL LYMPH NODE: The specimen is [...] 0.2 cm. Myometrial thickness averages 1.0 cm. Tuber Machine Operator Helper sections are submitted as follows: D1-right fallopian tube D2-right ovary D3-left fallopian tube D4-left ovary D5-nodule D6-right parametrium/paracervical soft tissue, en face D7-left parametrium/paracervical soft tissue, en face D8-anterior cervix and CARMEN D9-posterior cervix and CARMEN [id number]-[id number] anterior endomyometrium submitted f rom fundus to CARMEN [id number] posterior endomyometrium submit efraín from fundus to CARMEN (LLOYD Francis [facility]) Microscopic A-D. A formal Description microscopic 1 5:23 PM LABORATORY examination has been CDT performed Performing The technical Labs component of this 1 5:23 PM LABORATORY testing was completed CDT at [facility] Laboratory Specimen Anatomical Collection Method Collection Time [...] / Unknown Tuyet Stubbs MD LAB - BEAKER AP Performing Organization Address City/State/ZIP Code Phon e Number [place]AT[place] [address] Care Lab [address] 1st [...] Address City/State/ZIP Code Phon e Number [place] [address] [phone] Care Lab [address] 1[address] floor, Room [address]B Glucose by meter (09/15/2020 7:05 AM CDT) athologist Signature GLUCOSE BY 95 70 - 99 09/15/2020 LABORATORY METER POCT mg/dL 7:12 AM CDT POC Specimen Anatomical Collection Method Collection Time Receive d Time (Source) Location / / Volume Laterality Blood BLOOD SPECIMEN / 09/15/2020 7:05 AM 09/15 7:12 Unknown CDT AM CDT Tuyet HAYES - BEJAYDA POCT Performing Organization Address City/State/ZIP Code Phon e Number LAB[place]ATORY [place] [facility] [place] [address] Care Lab [address]st [...] exposure or clinical presentation sugges ts COVID-19. ??[facility] Laboratories are certified under the Clinical Laborat ory Improvement Amendments of 1988 (CLIA-88) as qualified to perform moderate and/or high complexity laboratory testing. Tuyet Stubbs MD LAB - MICRO GENERAL ORDERABL ES Performing Organization Address City/State/ZIP Code Phon e Number [place] [address] Care Lab [address] 1[address] floor, Room [address]B LAB RESULT [...] unspecified hyperlipidemia Chronic back pain Backache, unspecified Endometrial carcinoma (H) Malignant neoplasm of corpus uteri, exce pt isthmus documented in this encounter Admitting Diagnoses Diagnosis [...] mg/kg/day not to exceed 4 grams/day., Pre-procedure bupivacaine 0.5 % - EPINEPHrine 1:200,000 Given 09/15/2020 9:46 AM CDT 45 mLs injection PRN, Starting on Tue09/15/20 at 0946, Intra-procedure indocyanine green (IC-GREEN) injection Given 09/15/2020 8:42 AM CDT 8.75 mg PRN, Starting on Tue09/15/20 at 0842, Intra-procedure oxyCODONE (ROXICODONE) tablet 5 mg 5 mg, Oral, EVERY 4 HOURS PRN, moderate to severe pain, Starting on Tue09/15/20 at 1017, Max: 5 mg for opioid-na??ve patient. sodium chloride 0.9% (bag) irrigation Given 09/15/2020 8:41 AM CDT 1,000 mLs PRN, Starting on Tue09/15/20 at 0841, Intra-procedure sodium chloride 0.9% (bottle) irrigation Given 09/15/2020 8:41 AM CDT 1,000 mLs PRN, Starting on Tue09/15/20 at 0840, Intra-procedure documented in this encounter Active and Recently [...] Hogan APRN CRNA) Routine, 2 g, Intravenous, PRE-OP/PRE-OH OCEDURE, Starting on Tue09/15/20 at 0616, For [...] side eff ects. Hold while on IV HEAD PORTER or with regular IV opioid dosing. sodium chloride 0.9% (bag) irrigation (CANCELED) 0841 (Given - Provider: Tuyet Stubbs MD) PRN, Starting on Tue09/15/20 at 0841, Intra-procedure sodium chloride 0.9% (bottle) irrigation (CANCELED) 0841 (Given - Provider: Tuyet Stubbs MD) PRN, Starting on Tue09/15/20 at 0840, Intra-procedure documented in this encounter Care Teams Boilermaker Fitter Relationship Specialty Start Date End Date Ben Arredondo PA-C PCP - General 08/25/[address] [place], [place] [address] documented as of this encounter
--- OUTSIDE RECORDS SUMMARY | 2021-12-10 13:54 | XMS_ITS | Encounter Summary ---
:1960 Author Organization [place] Address [address] [place] [address] Care Team Providers Name Role Phone Unavailable Primary Care Provider Unavailable Encounter Details Date Type Department Care Team Description 12/02/2003 Results Only Daren Zheng MD [place] [address] Social History Tobacco Use Types Packs/Day Years Used Date Smoking Tobacco: Never Assessed Sex Assigned at Date Recorded Not on file documented as of this encounter Plan of Treatment Not on filedocumented as of this encounter Procedures Procedure Name Priority Date/Time Associated Diagnosis Comme nts C MAMMOGRAM, Routine 12/02/2003 11:14 AM Results for this SCREENING CDT procedure are i n the results section. documented in this encounter Results MAMMOGRAM, SCREENING (12/02/2003 11:14 AM CDT) Anatomical Region Laterality Modality Other Specimen (Source) Anatomical Collection Method Collection Time Re ceived Time Location / / Volume Laterality 12/02/2003 11:14 AM CDT Impressions 12/03/2003 1:38 PM CDT SCREENING MAMMOGRAM, BILATERAL BREAST SYMPTOMS: None PREVIOUS MAMMOGRAPHY: None. BREAST PARENCHYMA: ?? Fatty/mild densit ies. IMPRESSION: CATEGORY 1 Negative TECHNOLOGIST INITIALS: SRK Jessika Zheng MD SPECIAL IMAGING STUDIES documented in this encounter Visit Diagnoses Not on filedocumented in this encounter
--- OUTSIDE RECORDS SUMMARY | 2021-12-10 13:54 | XMS_ITS | Encounter Summary ---
:1960 Author Organization [place] Address [facility] [place] [address] Care Team Providers Name Role Phone Jessika Zheng MD Primary Care Provider Unavailable Encounter Details Date Type Department Care Team Description 07/30/2020 Orders Only [facility] Tuyet [place] Encounter for Same Day Surgery MD Roxy screening for other [address] [place] [address] HEMATOLOGY [phone] [address] [address] [place] [address] (Wo rk) Social History Tobacco Use Types Packs/Day Years Used Date Smoking Tobacco: Never Assessed Sex Assigned at Date Recorded Not on file documented as of this encounter Plan of Treatment Not on filedocumented as of this encounter Visit Diagnoses Diagnosis Encounter for screening for other viral diseases documented in this encounter Care Teams Box Toe Buffer Relationship Specialty Start Date End Date Jessika Zheng MD PCP - General Family Practice 11/21/10 08/24/20 documented as of this encounter
--- NOTE | 2021-12-10 14:00 | CRLHL7_ITS ---
For Patients: As a result of the Century Cures Act, medical imaging exams and procedure reports are released immediately into your electronic medical record. You may view this report before your referring provider. If you have questions, please contact your health care provider. BILATERAL SCREENING MAMMOGRAM WITH COMPUTER-AIDED DETECTION TECHNIQUE: CC and MLO views were obtained. These mammographic images have been obtained using full-field digital technique. These mammographic images were interpreted with the benefit of computer-aided detection. COMPARISON FILM: 11/25/20, 07/18/19, 07/11/18. FINDINGS: The breasts are almost entirely fatty IMPRESSION: There is no radiographic evidence for malignancy. ASSESSMENT: BI-RADS Category 2: Benign RECOMMENDATION: Routine screening mammogram in 1 year. A lay language report of this examination will be provided to the patient. Scott Mederos M.D. Diagnostic Radiologist [email or web address] Transcribed: 2:41 p.m. PALOMO/Dictated by: Scott Mederos MD @ 12/11/2021 8:24:00 AM (Electronically Signed)
== END 2021-12-10 13:45 | disposition home or self-care (01) ==
LOC: MAMMO 13:50
PROVIDERS: PCP Physician Assistant Medical; Visit Provider Physician Assistant Medical
DX: Z12.31 Encounter for screening mammogram for malignant neoplasm of breast (principal)
CPT/HCPCS: 77067

== ENCOUNTER 2022-02-23 06:52 | Emergency (ER) | payer MEDICARE, MEDICAID, SELFPAY ==
[2022-02-23 06:58] VITALS: BP 145/82; PULSE 75; RESP 18; TEMP 36.9; O2SAT 98; BMI 45.7
--- NOTE | 2022-02-23 07:20 | ED_ITS ---
HPI - General Adult General Chief complaint: Abdominal Pain Stated complaint: Lower right stomach pain Time Seen by Provider: 02/23/22 06:53 Source: patient and family Mode of arrival: ambulatory History of Present Illness HPI narrative: 61-year-old female presents to the emergency department with right very lower lateral abdominal pain that started last night. Patient states that the pain came on rather suddenly and it is crampy in nature, intermittent. It does not radiate. There is no nausea. She states that her last bowel movement was last night but on further clarification it sounds like she had another bowel movement this morning at around 3:30 a.m.. No blood in her stools. Reports bowels are normal, no watery stools or che diarrhea. No history of abdominal trauma. She has had a few abdominal surgeries previously including a hysterectomy last year and a prior appendectomy per her report. Sounds as though this was uncomplicated. Hysterectomy was for an endometrial cancer but it sounds as though follow-up has been reassuring. She does have a history of diabetes, denies alcohol use or history of pancreatitis. No fevers, has not tried any medications to help with her symptoms. Denies any dysuria or blood in her stools. Denies a history of similar symptoms. Family became concerned that she was continuing to complain of pain and was asking to be brought to the ED. Past medical history is notable for diabetes, obesity, hypertension. Home meds include metformin, allopurinol, gabapentin, glipizide, hydrochlorothiazide, omeprazole, potassium and Flomax. Allergies are to propoxyphene. Socially, lives with family, no alcohol intake, no pertinent travel. ROS is notable for the generalized and GI symptoms as above, otherwise denies times 12 systems. Related Data Home Medications Medication Instructions Recorded Confirmed allopurinol 100 mg tablet mg PO DAILY 08/13/21 11/10/21 gabapentin 100 mg capsule mg PO BID 08/13/21 11/10/21 hydrochlorothiazide 12.5 mg capsule mg PO DAILY 08/13/21 11/10/21 metformin 500 mg tablet 250 mg PO .Daily With Am Meal 08/13/21 11/10/21 omeprazole 20 mg capsule,delayed mg PO BID 08/13/21 11/10/21 release potassium citrate 10 mEq (1,080 1,080 PO BID 07/07/22 10/04/22 mg) tablet,extended release tamsulosin 0.4 mg capsule 0.4 mg PO QDAY PRN 08/13/21 11/10/21 Previous Rx's Medication Instructions Recorded glipizide 5 mg tablet 5 mg PO BID #180 tabs 10/29/21 Allergies Allergy/AdvReac Type Severity Reaction Status Date / Time propoxyphene Allergy Severe Throat Verified 02/23/22 07:00 swelling Review of Systems Status of ROS: Reports: 10 or more systems reviewed and unremarkable except as noted in History and below [facility] Medical History Abdominal hernia (~05/2021) Acute peptic ulcer of duodenum (08/28/12) Down syndrome 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) Hypertension Morbid obesity Tubular adenoma of colon Type 2 diabetes mellitus Urolithiasis (03/09/10) Surgical History History of arthroscopy of left shoulder History of laparoscopic appendectomy (08/17/10) Hx of bursectomy S/P arthroscopy of right shoulder (~2005) Status post laparoscopic hysterectomy (09/15/20) Status post laser lithotripsy of ureteral calculus Status post third molar tooth extraction Status post tonsillectomy and adenoidectomy Status post total knee replacement Family History Mother Diabetes Kidney failure Father Colorectal cancer High blood pressure Aunt Breast cancer Family/Other Breast cancer Sister Skin cancer Social History Narrative: Education: High school graduate 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 Tobacco: Lifetime nonsmoker E cigarettes: no Alcohol: 2 servings per year Smoking Status: Never smoker How often do you have a drink containing alcohol: never AUDIT-C Alcohol total score: 0 Non-prescribed substance use: denies use Caffeine: No Are you using contraception or practicing any form of control: No Exam Const: Vital Signs, click to edit/add: Vital Signs - 24 hr 02/23/22 06:58 Temperature 98.5 F Pulse Rate [Right Pulse Oximeter] 75 Respiratory Rate 18 Blood Pressure [Ri ght Upper Arm] 145/82 H Pulse Oximetry 98 Oxygen Delivery Me thod Room Air Documenting provider has reviewed patient's vital signs: yes Common normals: no apparent distress General appearance: cooperative and comfortable Other: Points to the very lateral lower abdomen, almost at the lateral right iliac crest as the maximal area of pain. Does not seem distressed. HENMT: Common normals: normocephalic and head/scalp atraumatic Head and scalp: normocephalic and atraumatic Mouth: oral and palatal mucosa normal Throat: posterior oropharynx normal Eye: Common normals: PERRL and conjunctivae normal Conjunctiva: conjunctiva(e) normal Pupil: PERRL Neck & C-Spine: Common normals: full ROM and no lymphadenopathy Resp: Common normals: normal respiratory effort, no use of accessory muscles and clear to auscultation bilaterally Effort & inspection: able to speak in complete sentences Auscultation: clear to auscultation bilaterally Cardio: Common normals: regular rate, regular rhythm, S1 normal heart sound, S2 normal heart sound, no murmurs and peripheral pulses 2+ throughout Rate: regular rate Rhythm: regular rhythm Heart sounds: S1 normal and S2 normal Peripheral pulses: pulses 2+ throughout GI: Other: Abdomen is obese but soft. Bowel sounds do sound normoactive in all 4 quadrants. Due to the obesity, I cannot palpate any of the organs well. There is some mild Noris in the abdominal pannus. There is no evidence of a femoral or inguinal hernia. No obvious mass. : Common normals: no CVA tenderness Bladder/kidney exam: no CVA te nderness Back & Pelvis: Common normals: no CVA tenderness Other: Poor posture and some mild kyphosis, otherwise normal spine. Extremity: Common normals: normal to inspection, normal capillary refill and no pedal edema Neuro: Speech: speech normal Motor exam: no movement abnormalities noted Psych: Mood and affect: euthymic mood Insight: fair Judgement: fair Skin: Common normals: no rashes or lesions noted General skin exam: no rashes or lesions noted Course Vital Signs Vital signs: Initial Vital Signs Temperature 98.5 F 02/23/22 06:58 Temperature Source Temporal Artery Scan 02/23/22 06:58 Pulse Rate 75 02/23/22 06:58 Respiratory Rate 18 02/23/22 06:58 Blood Pressure 145/82 H 02/23/22 06:58 Blood Pressure Mean 103 02/23/22 06:58 Blood Pressure Position Sitting 02/23/22 06:58 Pulse Oximetry 98 02/23/22 06:58 Oxygen Delivery Method 02/23/22 06:58 Vital Signs Temperature 98.5 F 02/23/22 06:58 Pulse Rate 75 02/23/22 06:58 Respiratory Rate 18 02/23/22 06:58 Blood Pressure 145/82 H 02/23/22 06:58 Pulse Oximetry 98 02/23/22 06:58 Oxygen Delivery Method 02/23/22 06:58 Temperature 98.5 F 02/23/22 06:58 Pulse Rate 75 02/23/22 06:58 Respiratory Rate 18 02/23/22 06:58 Blood Pressure 145/82 H 02/23/22 06:58 Pulse Oximetry 98 02/23/22 06:58 Oxygen Delivery Method 02/23/22 06:58 Medical Decision Making MDM Narrative Medical decision making narrative: Very benign exam, vital signs stable. The suboptimal historian, I think that does limit my interpretation. I recommended a urinalysis, basic labs. I will withhold ordering CT until the urinalysis is back as I am not sure based on her history of chronic kidney disease of her creatinine status and or if contrast would be useful. Differential diagnosis includes small-bowel obstruction, appendicitis if she is incorrect about her prior appendectomy, gastroenteritis, colitis, gallbladder disease with an atypical presentation, internal hernia, pancreatitis or a musculoskeletal etiology. I will withhold administering any medications unless her symptoms worsen while we await lab findings. Will likely have to hand patient over to my incoming day shift partner. Update: CRP normal, no leukocytosis. All labs are very reassuring including urinalysis. Patient seems very comfortable, no vomiting while she has been here, I do not recommend that we do further imaging. Suspect a viral gastroenteritis. I have encouraged her to take 2 days off of work. Did assist slowly advancing diet and drinking lots of fluids, pain management with Tylenol. All questions answered, they verbalized understanding and agreement. Lab Data Lab results reviewed: Yes I reviewed the patient's lab results Labs: Lab Results 02/23/22 02/23/22 02/23/22 Range/Units 07:19 07:34 07:34 WBC 8.55 (4.50-11.00) K/uL RBC 4.94 (4.00-5.20) m/uL Hgb 13.2 (12.0-16.0) gm/dL Hct 41.4 (33.0-51.0) % MCV 84 (80-100) fL MCH 27 (26-34) pg MCHC 32 (32-36) gm/dL RDW Coeff of Vazquez 15.3 (11.5-15.5) % Plt Count 235 (140-440) K/uL Neut % (Auto) 76.7 H (42.0-72.0) % Lymph % (Auto) 16.8 L (20-44) % Fisher % (Auto) 5.7 (0.0-11.0) % Eos % (Auto) 0.5 (0.0-7.0) % Baso % (Auto) 0.1 (0.0-3.0) % Neut # (Auto) 6.60 (1.7-7.0) K/uL Lymph # (Auto) 1.40 (0.90-2.90) K/uL Fisher # (Auto) 0.50 (0.00-0.90) K/UL Eos # (Auto) 0.04 (0.00-0.50) K/uL Baso # (Auto) 0.01 (0.00-0.30) K/uL Sodium 143 (135-149) mmol/L Potassium 4.6 (3.6-5.1) mmol/L Chloride 108 (96-114) mmol/L Carbon Dioxide 29 (20-32) mmol/L BUN 26 (7-30) mg/dL Creatinine 0.8 (0.5-1.5) mg/dL Estimated Creat Clear 46.73 Estimated GFR 84 ml/min Glucose 193 H (60-115) mg/dL Calcium 9.3 (8.4-10.6) mg/dL Total Bilirubin 0.4 (0.1-1.5) mg/dL AST 18 (12-35) U/L ALT 25 (4-35) U/L Alkaline Phosphatase 125 (40-150) U/L C-Reactive Protein 0.8 (0.5-1.0) mg/dL Total Protein 7.3 (6.0-8.3) g/dL Albumin 4.1 (3.3-5.0) g/dL Lipase 70 (23-300) U/L Urine Color Yellow (Yellow) Urine Appearance Clear (Clear) Urine pH 6.5 (5.0-8.5) Ur Specific [place] 1.015 (1.000-1.030) Urine Protein Negative (Negative) Urine Glucose (UA) Negative (Negative) Urine Ketones Negative (Negative) Urine Blood Negative (Negative) Urine Nitrite Negative (Negative) Urine Bilirubin Negative (Negative) Urine Urobilinogen 0.2 (0.2-1.0) Ur Leukocyte Esterase Negative (Negative) Discharge Plan Discharge Clinical Impression: Gastroenteritis Patient Disposition: Home w/ Parent or Adult Condition: Improved Instructions: Gastroenteritis (DC) Additional Instructions: Labs and physical exam are reassuring. This is good news. I suspect that your pain is caused by a GI virus, stomach flu also known as gastroenteritis. This does tend to be contagious, so would like you home from work today and tomorrow. Abdominal cramping, loose stools or common. He may even have nausea and vomiting. Drink lots of fluids and slowly advance her diet as tolerated. It is okay to use Tylenol 1000 mg every 6 hours as needed for pain, if you prefer to take smaller doses more often, you may use 650 mg every 4 hours. Follow-up with your primary care provider if not improving in 4 days. Any severe symptoms would warrant ER presentation. Activity Level: Activity as Tolerated and Other Activity Detail: Off work today and tomorrow. May return if feeling better. Discharge Diet: Diabetic Prescriptions: No Action glipizide 5 mg tablet 5 mg PO BID Qty: 180 1RF potassium citrate 10 mEq (1,080 mg) tablet extended release 1,080 PO BID metformin 500 mg tablet 250 mg PO .Daily With Am Meal omeprazole 20 mg capsule,delayed release(DR/EC) PO BID hydrochlorothiazide 12.5 mg capsule PO DAILY gabapentin 100 mg capsule PO BID allopurinol 100 mg tablet PO DAILY tamsulosin 0.4 mg capsule 0.4 mg PO QDAY PRN Follow Up/Referrals: Vidya Arredondo PA-C [Primary Care Provider] - Stand Alone Forms: [employer] Info Instructions
[2022-02-23 07:40] LABS: Basophils Absolute Auto 0.01 K/uL (0.00-0.30); Basophils Percent Auto 0.1 % (0.0-3.0); Eosinophils Absolute Auto 0.04 K/uL (0.00-0.50); Eosinophils Percent Auto 0.5 % (0.0-7.0); Hematocrit 41.4 % (33.0-51.0); Hemoglobin* 13.2 gm/dL (12.0-16.0); Immature Granulocytes Abs Auto 0.02 K/uL (0.00-0.30); Immature Granulocytes Pct Auto 0.2 %; Lymphocytes Percent Auto 16.8 % (20-44); Mean Corpuscular HGB Conc 32 gm/dL (32-36); Mean Corpuscular Hemoglobin 27 pg (26-34); Mean Corpuscular Volume 84 fL (80-100); Monocytes Percent Auto 5.7 % (0.0-11.0); Neutrophils Percent Auto 76.7 % (42.0-72.0); Platelet Count* 235 K/uL (140-440); RDW Coefficient of Variation % 15.3 % (11.5-15.5); Red Blood Count 4.94 m/uL (4.00-5.20); White Blood Count* 8.55 K/uL (4.50-11.00)
[2022-02-23 07:44] LABS: Slide Review Reflex No
[2022-02-23 07:52] LABS: Albumin* 4.1 g/dL (3.3-5.0); Chloride* 108 mmol/L (96-114); Potassium* 4.6 mmol/L (3.6-5.1); Sodium* 143 mmol/L (135-149)
[2022-02-23 07:54] LABS: Bilirubin Total* 0.4 mg/dL (0.1-1.5); Creatinine* 0.8 mg/dL (0.5-1.5); Est. Creatinine Clearance* 46.73; Estimated Glomerular Filt Rate 84 ml/min
[2022-02-23 07:55] LABS: Alanine Aminotransferase* 25 U/L (4-35); Alkaline Phosphatase* 125 U/L (40-150); Aspartate Amino Transferase* 18 U/L (12-35); Blood Urea Nitrogen* 26 mg/dL (7-30); Carbon Dioxide* 29 mmol/L (20-32); Lipase* 70 U/L (23-300); Total Protein* 7.3 g/dL (6.0-8.3)
[2022-02-23 07:56] LABS: Calcium* 9.3 mg/dL (8.4-10.6); Glucose* 193 mg/dL (60-115)
[2022-02-23 07:58] LABS: C Reactive Protein* 0.8 mg/dL (0.5-1.0)
[2022-02-23 08:00] LABS: Appearance Urine Clear (Clear); Bilirubin Urine Negative (Negative); Blood Urine Negative (Negative); Color Urine Yellow (Yellow); Glucose Urine Negative (Negative); Ketones Urine Negative (Negative); Leukocyte Esterase Urine Negative (Negative); Nitrite Urine Negative (Negative); Protein Urine Negative (Negative); Specific Gravity Urine 1.015 (1.000-1.030); Urobilinogen Urine 0.2 (0.2-1.0); pH Urine 6.5 (5.0-8.5)
== END 2022-02-23 08:44 | disposition home or self-care (01) ==
PROVIDERS: Emergency Provider Family Medicine; PCP Physician Assistant Medical
DX: K52.9 Noninfective gastroenteritis and colitis, unspecified (principal)
CPT/HCPCS: 36415; 80053; 81003; 83690; 85025; 86140; 99282; 99283

== ENCOUNTER 2022-05-06 13:05 | Outpatient (CLI) | payer MEDICARE, MEDICAID, SELFPAY | END 2022-05-06 13:06 | disposition home or self-care (01) | LOC: NFLDREF 05-07 10:46 | PROVIDERS: PCP Physician Assistant Medical; Referring Provider Physician Assistant Medical; Visit Provider Internal Medicine Nephrology | DX: E11.22 Type 2 diabetes mellitus with diabetic chronic kidney disease (principal); E11.9 Type 2 diabetes mellitus without complications; E78.5 Hyperlipidemia, unspecified; I10 Essential (primary) hypertension; N18.1 Chronic kidney disease, stage 1 | CPT/HCPCS: 80061; 80069; 82043; 82310; 82570; 83970; 84450; 84460; 84550 ==

== ENCOUNTER 2022-09-02 13:00 | Outpatient (RCR) | payer MEDICARE, MEDICAID, SELFPAY | END 2022-09-07 13:44 | disposition home or self-care (01) | PROVIDERS: PCP Physician Assistant Medical; Visit Provider Orthopaedic Surgery | DX: Z98.890 Other specified postprocedural states (principal); Z87.81 Personal history of (healed) traumatic fracture; Z51.89 Encounter for other specified aftercare | CPT/HCPCS: 97110; 97112; 97116; 97140; 97161; 97530 ==

== ENCOUNTER 2022-11-08 12:55 | Outpatient (REF) | payer MEDICARE, MEDICAID, SELFPAY | END 2022-11-08 12:56 | disposition home or self-care (01) | LOC: NFLDREF 12:55 | PROVIDERS: PCP Physician Assistant Medical; Referring Provider Physician Assistant Medical; Visit Provider Physician Assistant Medical | DX: E11.22 Type 2 diabetes mellitus with diabetic chronic kidney disease (principal); E11.9 Type 2 diabetes mellitus without complications; E78.5 Hyperlipidemia, unspecified; I10 Essential (primary) hypertension; N18.1 Chronic kidney disease, stage 1 | CPT/HCPCS: 82340; 82436; 82507; 83735; 83945; 83986; 84105; 84133; 84300; 84392; 84560 ==

== ENCOUNTER 2022-11-09 11:03 | Outpatient (CLI) | payer MEDICARE, MEDICAID, SELFPAY | END 2022-11-09 11:04 | disposition home or self-care (01) | LOC: NFLDREF 11-10 11:48 | PROVIDERS: PCP Physician Assistant Medical; Referring Provider Physician Assistant Medical; Visit Provider Internal Medicine Nephrology | DX: E11.22 Type 2 diabetes mellitus with diabetic chronic kidney disease (principal); E11.9 Type 2 diabetes mellitus without complications; E78.5 Hyperlipidemia, unspecified; I10 Essential (primary) hypertension; N18.1 Chronic kidney disease, stage 1 | CPT/HCPCS: 80061; 80069; 82043; 82570; 82728; 83540; 83550; 84450; 84460; 84550 ==

== ENCOUNTER 2023-01-06 13:01 | Outpatient (CLI) | payer MEDICARE, MEDICAID, SELFPAY ==
--- NOTE | 2023-01-06 13:00 | CRLHL7_ITS ---
For Patients: As a result of the Century Cures Act, medical imaging exams and procedure reports are released immediately into your electronic medical record. You may view this report before your referring provider. If you have questions, please contact your health care provider. BILATERAL SCREENING MAMMOGRAM WITH COMPUTER-AIDED DETECTION TECHNIQUE: CC and MLO views were obtained. These mammographic images have been obtained using full-field digital technique. These mammographic images were interpreted with the benefit of computer-aided detection. COMPARISON FILM: 12/10/21, 11/25/20, 07/18/19. FINDINGS: The breasts are almost entirely fatty. IMPRESSION: There is no radiographic evidence for malignancy. ASSESSMENT: BI-RADS Category 2: Benign RECOMMENDATION: Routine screening mammogram in 1 year. A lay language report of this examination will be provided to the patient. SCOTT CABRERA M.D. Diagnostic Radiologist [email or web address] Transcribed: 01/11/2023, 2:[address]/Dictated by: Scott Cabrera MD @ 01/11/2023 9:47:00 AM (Electronically Signed)
== END 2023-01-06 13:02 | disposition home or self-care (01) ==
LOC: MAMMO 13:02
PROVIDERS: PCP Physician Assistant Medical; Visit Provider Physician Assistant Medical
DX: Z12.31 Encounter for screening mammogram for malignant neoplasm of breast (principal)
CPT/HCPCS: 77067

== ENCOUNTER 2023-02-15 11:00 | Emergency (ER) | payer MEDICARE, MEDICAID, SELFPAY ==
[2023-02-15 11:25] VITALS: BP 159/84; PULSE 87; RESP 18; TEMP 36.5; O2SAT 99; BMI 47.4
--- NOTE | 2023-02-15 11:48 | CRLHL7_ITS ---
For Patients: As a result of the Century Cures Act, medical imaging exams and procedure reports are released immediately into your electronic medical record. You may view this report before your referring provider. If you have questions, please contact your health care provider. INDICATION: Right flank pain. Abdominal pain TECHNIQUE: CT abdomen and pelvis without contrast. COMPARISON: None. FINDINGS: Lower chest: Scattered atelectasis. Liver: Normal in size and attenuation. No suspicious masses. Gallbladder and bile ducts: Cholelithiasis with trace gallbladder wall thickening. Pancreas: Unremarkable. No mass or inflammation. Spleen: Normal in size. No masses. Adrenal glands: Normal in size. No nodules. Kidneys: Bilateral renal sinuses. Normal in size. No suspicious masses, stones, or hydronephrosis. GI tract: Moderate colonic stool burden. Colonic diverticulosis without diverticulitis. Vasculature: Abdominal aorta is normal in caliber. Lymph nodes: No lymphadenopathy. Peritoneum/Abdominal Wall: Large right lateral ventral hernia containing multiple loops of distal small bowel and proximal colon without obstruction. No sign of mass or infiltration. No free air or significant free fluid. Pelvis: Hysterectomy. No pelvic masses. Bones: Unremarkable for age. IMPRESSION: Large right lateral ventral hernia containing multiple loops of distal small bowel and proximal colon without obstruction. Recommend correlation with physical examination. Cholelithiasis with trace gallbladder wall thickening. Recommend correlation with laboratory values and right upper quadrant pain. Consider further evaluation with ultrasound. No obstructive uropathy as questioned. Please note that all CT scans at this facility use dose modulation, iterative reconstruction, and/or weight-based dosing when appropriate to reduce radiation dose to as low as reasonably achievable. Dictated by Coleman Harris MD @ 02/15/2023 12:58:23 PM (Electronically Signed)
--- NOTE | 2023-02-15 11:49 | ED.ABDPAIN ---
HPI - Abdominal Pain General Chief Complaint: Abdominal Pain Stated Complaint: Hernia pain Time Seen by Provider: 02/15/23 11:38 History of Present Illness HPI narrative: This 62-year-old female comes in with report of abdominal pain. She has Down syndrome and history of abdominal hernia and kidney stones. She reports pain in the right flank and right abdomen where she states there is in a hernia. She did call in to clinic and was instructed to come here for imaging in case there was some bowel and trap mint. Patient states that the pain comes and goes. The pain did wake her from sleep this morning. I did look at a report of a previous CT scan that did show evidence of renal calculus and a 10 x 7 cm hernia in the right abdomen. The patient arrives with normal vital signs and currently is in no acute distress. Related Data Home Medications Medication Instructions Recorded Confirmed omeprazole 20 mg capsule,delayed 20 mg PO BID 08/13/21 02/15/23 release tamsulosin 0.4 mg capsule 0.4 mg PO QDAY PRN 08/13/21 02/15/23 hydrochlorothiazide 12.5 mg tablet 12.5 mg PO DAILY 07/01/22 02/15/23 sucralfate 1 gram tablet 1 g PO Q6H 07/01/22 02/15/23 allopurinol 100 mg tablet 100 mg PO DAILY 11/16/22 02/15/23 gabapentin 100 mg capsule 100 mg PO BID 11/16/22 02/15/23 potassium citrate 10 mEq (1,080 20 meq PO QDAY 11/16/22 02/15/23 mg) tablet,extended release glipizide 5 mg tablet 5 mg PO BID 02/15/23 02/15/23 latanoprost 0.005 % eye drops 1 drp ophthalmic (eye) QPM 02/15/23 02/15/23 Previous Rx's Medication Instructions Recorded metformin 500 mg tablet 250 mg (1/2 x 500 mg) PO .Daily 09/16/22 With Am Meal #90 tabs ketorolac 10 mg tablet 10 mg PO Q8H 5 days #15 tabs 02/15/23 Allergies Allergy/AdvReac Type Severity Reaction Status Date / Time propoxyphene Allergy Severe Throat Verified 02/15/23 11:34 swelling Review of Systems Status of ROS Reports: 10 or more systems reviewed and unremarkable except as noted in History and below Narrative Constitutional: No fevers, no weight gain or loss. Eyes: No discharge. No vision changes. HENT: No congestion, no sore throat, no ear pain. Cardiovascular: No chest pain, no palpitations. Respiratory: No shortness of breath, no wheezes, no cough. Gastrointestinal: No vomiting, no diarrhea. Abdominal pain as described above. Genitourinary: No dysuria, no hematuria. Musculoskeletal: Normal range of motion. Skin: No rashes, no pruritis. Neurological: No dizziness, weakness, sensory change, speech change. Endo/Heme/Allergies: No bruising or bleeding. No polydipsia. Pysch: no suicidality, no anxiety, no insomnia. All other systems reviewed and are negative. [facility] Medical History (Updated 02/15/23 @ 13:25 by Endy Rene MD) Closed fracture of left fibula with routine healing ?S82.402D - Unspecified fracture of shaft of left fibula, subsequent encounter for closed fracture with routine healing (ICD-10) Fracture of fibula, distal, left, closed ?S82.832A - Other fracture of upper and lower end of left fibula, initial encounter for closed fracture (ICD-10) Fracture of phalanx of left great toe ?S92.402A - Displaced unspecified fracture of left great toe, initial encounter for closed fracture (ICD-10) Closed fracture of fibula ?S82.409A - Unspecified fracture of shaft of unspecified fibula, initial encounter for closed fracture (ICD-10) 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652 - Presence of left artificial knee joint (ICD-10) History of total right knee replacement (04/23/14) ?Z96.651 - Presence of right artificial knee joint (ICD-10) Status post laparoscopic hysterectomy (09/15/20) ?Z90.710 - Acquired absence of both cervix and uterus (ICD-10) Hx of bursectomy ?Z98.890 - Other specified postprocedural states (ICD-10) S/P arthroscopy of right shoulder (12/21/05) ?Z98.890 - Other specified postprocedural states (ICD-10) History of arthroscopy of left shoulder (12/02/15) ?Z98.890 - Other specified postprocedural states (ICD-10) Status post laser lithotripsy of ureteral calculus ?Z98.890 - Other specified postprocedural states (ICD-10) Status post tonsillectomy and adenoidectomy ?Z90.89 - Acquired absence of other organs (ICD-10) Status post third molar tooth extraction ?Z98.818 - Other dental procedure status (ICD-10) History of laparoscopic appendectomy (08/17/10) ?Z90.49 - Acquired absence of other specified parts of digestive tract (ICD-10) Family History Mother Diabetes Kidney failure Father Colorectal cancer High blood pressure Aunt Breast cancer Family/Other Breast cancer Sister Skin cancer Social History (Reviewed 06/17/22 @ 11:11 by Jennifer Melissa ~ [facility], [facility]) Narrative: Education: High school graduate 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 HEENT: Normocephalic, atraumatic. Neck: Normal range of motion. Nontender. Supple. Heart: Regular. No murmurs. Normal rate. Intact distal pulses. Lungs: Clear to auscultation. No chest discomfort. No wheezes, rhonchi, or rales. Abdomen: Normal bowel sounds. Mild tenderness in the right abdomen. No rebound tenderness. Genitalia: Deferred. Back: No midline tenderness. Normal range of motion. Extremities: Normal range of motion. No injury. Skin: Intact. No rash. Warm. No erythema or pallor. Neurologic: No altered sensation. No weakness. Alert and oriented. Psychiatric: No suicidality. No anxiety or depression. No insomnia. Nursing notes and vitals signs are reviewed. Const: Vital Signs, click to edit/add: Vital Signs - 24 hr 02/15/23 11:25 Temperature 97.7 F Pulse Rate [Pulse Oximeter] 87 Respiratory Rate 18 Blood Pressure [Ri ght Upper Arm] 159/84 H Pulse Oximetry 99 Oxygen Delivery Me thod Room Air Course Vital Signs Vital signs: Initial Vital Signs Temperature 97.7 F 02/15/23 11:25 Temperature Source Temporal Artery Scan 02/15/23 11:25 Pulse Rate 87 02/15/23 11:25 Respiratory Rate 18 02/15/23 11:25 Blood Pressure 159/84 H 02/15/23 11:25 Blood Pressure Mean 109 H 02/15/23 11:25 Blood Pressure Position Sitting 02/15/23 11:25 Pulse Oximetry 99 02/15/23 11:25 Oxygen Delivery Method Room Air 02/15/23 11:25 Vital Signs Temperature 97.7 F 02/15/23 11:25 Pulse Rate 87 02/15/23 11:25 Respiratory Rate 18 02/15/23 11:25 Blood Pressure 159/84 H 02/15/23 11:25 Pulse Oximetry 99 02/15/23 11:25 Oxygen Delivery Method Room Air 02/15/23 11:25 Temperature 97.7 F 02/15/23 11:25 Pulse Rate 87 02/15/23 11:25 Respiratory Rate 18 02/15/23 11:25 Blood Pressure 159/84 H 02/15/23 11:25 Pulse Oximetry 99 02/15/23 11:25 Oxygen Delivery Method Room Air 02/15/23 11:25 MDM - Abdominal Pain MDM Narrative Medical decision making narrative: This patient comes in reporting right-sided abdominal pain that she attributes to her hernia. She also has history of kidney stones. CT scan of the abdomen and pelvis is obtained and does not show any evidence of renal calculus but she does have a very large right abdominal hernia with bowel protruding through the herniation. There is no sign of incarceration or volvulus. This patient is okay to return home to continue current plans and is encouraged to follow-up with her primary physician. She did receive a prescription for Toradol. Lab Data Labs: Lab Results 02/15/23 Range/Units 12:30 Urine Color Yellow (Yellow) Urine Appearance Clear (Clear) Urine pH 7.0 (5.0-8.5) Ur Specific [place] 1.020 (1.000-1.030) Urine Protein Negative (Negative) Urine Glucose (UA) Negative (Negative) Urine Ketones Negative (Negative) Urine Blood Negative (Negative) Urine Nitrite Negative (Negative) Urine Bilirubin Negative (Negative) Urine Urobilinogen 0.2 (0.2-1.0) Ur Leukocyte Esterase Negative (Negative) Urine RBC 0-2 (0-2) Urine WBC 0-2 (0-5) Ur Squamous Epith Cells None (None-Few) Urine Bacteria None (None) Imaging Data CT scan - abdomen: Radiologist's impression: Large right lateral ventral hernia containing multiple loops of distal small bowel and proximal colon without obstruction. Recommend correlation with physical examination. Cholelithiasis with trace gallbladder wall thickening. Recommend correlation with laboratory values and right upper quadrant pain. Consider further evaluation with ultrasound. No obstructive uropathy as questioned. Discharge Plan Discharge Clinical Impression: Abdominal hernia Patient Disposition: Home w/ Parent or Adult Condition: Stable Additional Instructions: Take medication as needed and indicated for pain relief. Follow-up with primary physician. Return if worsening. Prescriptions: New ketorolac 10 mg tablet 10 mg PO Q8H 5 Days Qty: 15 0RF No Action sucralfate 1 gram tablet 1 g PO Q6H hydrochlorothiazide 12.5 mg tablet 12.5 mg PO DAILY omeprazole 20 mg capsule,delayed release(DR/EC) 20 mg PO BID tamsulosin 0.4 mg capsule 0.4 mg PO QDAY PRN allopurinol 100 mg tablet 100 mg PO DAILY gabapentin 100 mg capsule 100 mg PO BID potassium citrate 10 mEq (1,080 mg) tablet extended release 20 meq PO QDAY metformin 500 mg tablet 250 mg PO .Daily With Am Meal Qty: 90 1RF latanoprost 0.005 % drops 1 drp ophthalmic (eye) QPM glipizide 5 mg tablet 5 mg PO BID Follow Up/Referrals: Vidya Arredondo PA-C [Primary Care Provider] - Stand Alone Forms: [employer] Info Instructions
--- OUTSIDE RECORDS SUMMARY | 2023-02-15 12:05 | XMS_ITS | Clinical Summary ---
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 Max acetaminophen dose: 4000mg in 24 hrs. 1-2 caps 0 Active tamsulosin (FLOMAX) 0.4 mg capsule Take 0.4 mg by mouth once daily after a meal. 0 Active gabapentin (NEURONTIN) 100 mg capsule Take 100 mg by mouth 2 times daily. 0 03/25/2010 Active DICLOFENAC SODIUM/MISOPROSTOL (ARTHROTEC 50 ORAL) Take 50 mg by mouth 2 times daily. 0 03/18/2010 Active oxyCODONE-acetamin ophen, 5-325 mg, (PERCOCET 5-325) 5-325 mg per tablet Take 1-2 tablets by mouth every 4 hours if needed for Pain. 30 tablet 0 03/25/2010 Active Social History Tobacco Use Types Packs/Day Years Used Date Smoking Tobacco: Never Alcohol Use Standard Drinks/Week Comments No 0 (1 standard drink = 0.6 oz pur e alcohol) Sex and Gender Information Value Date Recorded Sex Assigned at Not on file Gender Identity Not on file Sexual Orientation Not on file Obstetrics History Last Filed Vital Signs Vital Sign Reading Time Taken Comments Blood Pressure 121/77 03/25/2010 5:10 PM [employer] SUPER[employer] Pulse 98 03/25/2010 5:10 PM [employer] SUPER[employer] Temperature 36.2 ??C (97.2 ??F) 03/25/2010 3:55 PM CS T Respiratory Rate 16 03/25/2010 5:10 PM [employer] SUPER[employer] Oxygen Saturation 93% 03/25/2010 5:10 PM [employer] SUPER[employer] Inhaled Oxygen Concentration - - Weight 118 kg (260 lb 2.3 oz) 03/25/2010 1:20 PM [employer] SUPER[employer] Height 160 cm (5' 2.99) 03/25/2010 1:20 PM [employer] SUPER[employer] Body Mass Index 46.09 03/25/2010 1:20 PM [employer] SUPER[employer] Plan of Treatment Health Maintenance Due Date Last Done Comments COVID-19 vaccine series (#1) 05/12/1961 Tdap 11/12/1971 Depression screening for age 12+ 1972 HIV for age 15-65 11/12/1975 BMI (ht and wt on same day) for age 18+ 1978 Hepatitis C screening for ag e 18-79 1978 Tetanus booster 1980 Pap test for age 21-65 1981 Colonoscopy through age 75 2005 Lipids for age 45-75 2005 Mammogram for age 45-75 2005 Zoster (shingles) series for age 50+ (1 of 2) 2010 Influenza for age 50-64 10/08/2022 Pneumococcal series for age 6-64 Aged Out No longer eligible based on patient's age to complete this topic Medical Devices Implanted Type Area Enterostomal Nurse Device Identifier Shelf Expiration Date Model / Serial / Lot Stent Uret [id number] Silhouette Xtraflo - [id number] Implanted:Qty: 1 on 03/18/2010 at [facility] Left: [employer] [address] [employer] [id number] / / [id number] Care Teams Farmworker [employer] Relationship Specialty Start Date End Date Jessika Zheng PCP - General 03/17/10
--- OUTSIDE RECORDS SUMMARY | 2023-02-15 12:05 | XMS_ITS | Referral Summary ---
Author Name Unknown Organization [facility] Address [address] [place] [id number] Care Team Providers Care Floor Scrubber Name Role Phone Vidya Arredondo PA-C Primary Care Provider [phone] Allergies Active Allergy Reactions Criticality Noted Date Comments Propoxyphene 07/28/2020 Medications Medication Sig Dispensed Refills Start Date End Date Status allopurinol (ZYLOPRIM) 100 MG tablet Take 100 mg by mouth every morning 0 Active amoxicillin (AMOXIL) 500 MG tablet Take 2,000 mg by mouth daily as needed (1 hour prior to dental appointments) 0 Active gabapentin (NEURONTIN) 100 MG capsule Take 100 mg by mouth 2 times daily 0 Active glipiZIDE (GLUCOTROL) 5 MG tablet Take 5 mg by mouth 2 times daily (before meals) 0 Active hydrochlorothiazid e (MICROZIDE) 12.5 MG capsule Take 12.5 mg by mouth every morning 0 Active metFORMIN (GLUCOPHAGE) 500 MG tablet Take 250 mg by mouth every morning (1/2 x 500mg) 0 Active omeprazole (PRILOSEC) [address] capsule Take 20 mg by mouth daily as needed (pt taking differently than prescribed; RX states 20mg twice daily) 0 Active potassium citrate (UROCIT-K) 10 MEQ (1080 MG) CR tablet Take 10 mEq by mouth every morning 0 Active tamsulosin (FLOMAX) 0.4 MG capsule Take 0.4 mg by mouth daily as needed 0 Active sucralfate (CARAFATE) 1 GM tablet Take 1 g by mouth 4 times daily 0 Active senna (SENOKOT) 8.6 MG tabletIndications: Endometrial carcinoma (H) Take 1-3 tablets by mouth 2 times daily as needed for constipation 30 tablet 0 09/15/2020 Active Active Problems Problem Noted Date Diagnosed Date Endometrial carcinoma 07/28/2020 Down's syndrome 07/28/2020 Morbid obesity with BMI of 45.0-49.9, adult 07/09 Diabetes mellitus type II, controlled 07/28/2020 GERD (gastroesophageal reflux disease) Gout 07/28/2020 Essential hypertension 07/28/2020 Hyperlipidemia 07/28/2020 Chronic back pain 07/28/2020 Social History Tobacco Use Types Packs/Day Years Used Date Smoking Tobacco: Never Smokeless Tobacco: Never Alcohol Use Standard Drinks/Week Comments Never 0 (1 standard drink = 0.6 oz pur e alcohol) Adolescent Education Answer Date Record ed Getting School Help Needed Not on file 10/30 Sex and Gender Information Value Date Recorded Sex Assigned at Not on file Gender Identity Not on file Sexual Orientation Not on file Last Filed Vital Signs Vital Sign Reading Time Taken Comments Blood Pressure 133/71 09/15/2020 11:50 AM CDT Pulse 80 09/15/2020 11:00 AM CDT Temperature 36.1 ??C (97 ??F) 09/15/2020 11: 00 AM CDT Respiratory Rate 20 09/15/2020 11:5 0 AM CDT Oxygen Saturation 99% 09/15/2020 11: 50 AM CDT Inhaled Oxygen Concentration - - Weight 119.2 kg (262 lb 11.2 oz) 09/15/2020 7:26 AM CDT Height 157.5 cm (5' 2) 09/15/2020 7:26 AM CDT Body Mass Index 48.05 09/15/2020 7:26 AM CDT Plan of Treatment Not on file Care Teams Floor Scrubber Relationship Specialty Start Date End Date Vidya Arredondo PA-C [address] [place] [address] PCP - General 08/25/20
--- OUTSIDE RECORDS SUMMARY | 2023-02-15 12:05 | XMS_ITS | Clinical Summary ---
Author Name Unknown Organization [facility] Address [address] [place] [address] Care Team Providers Care Travel Physical Therapist Name Role Phone Vidya Arredondo PA-C Primary Care Provider [phone] Allergies Active Allergy Reactions Criticality Noted Date [...] DIABETIC FOOT EXAM 1960 EYE EXAM 1960 FIT 1960 FLEX SIG 1960 LIPID 1960 MICROALBUMIN 1960 sDNA (Cologuard) 1960 COLONOSCOPY 1970 COLORECTAL CANCER SCREENING 1970 HIV SCREENING 11/12/1975 HEPATITIS C SCREENING 1978 MEDICARE ANNUAL WELLNESS VISIT 1978 PAP 1981 MAMMO SCREENING 11/25/2012 11/25/2010, 11/07, 11/13/2008, Additional history exists BMP 05/05/2018 05/05/2017 RSV VACCINE ( & 60+) (1 - 1-dose 60+ series) 2020 Pneumococcal Vaccine: Pediatrics (0 to 5 Years) and At-Risk Patients (6 to 64 Years) (2 of 2 - PCV) 12/16/2021 12/16/2020, 05/07/2014 PHQ-2 (once per calendar year) 2022 COVID-19 Vaccine ( season) 2022 05/10/2021, 12/05/2020, 05/14/2020, Additional history exists INFLUENZA VACCINE (#1) 2022 , 10/22/2019, 10/22/2019, Additional history exists DTAP/TDAP/TD IMMUNIZATION (2 - Td or Tdap) 04/20/2027 04/19/2017, 05/01/2007 ZOSTER IMMUNIZATION Completed 10/23/2017, 8 HPV IMMUNIZATION Aged Out No longer e ligible based on patient's age to complete this topic IPV IMMUNIZATION Aged Out No longer e ligible based on patient's age to complete this topic MENINGITIS IMMUNIZATION Aged Out No l onger eligible based on patient's age to complete this topic RSV MONOCLONAL ANTIBODY Aged Out No l onger eligible based on patient's age to complete this topic Care Teams Travel Physical Therapist Relationship Specialty Start Date End Date Vidya Arredondo PA-C [address] [place] [address] PCP - General 08/25/20
--- OUTSIDE RECORDS SUMMARY | 2023-02-15 12:06 | XMS_ITS | Encounter Summary ---
Author Name Unknown Organization [facility] Address [address] [place] [address] Care Team Providers Care Press Set Up Person Name Role Phone Unavailable Primary Care Provider Unavailabl e Reason for Visit * Appointment Request (Routine) - Closed Specialty Diagnoses / Procedures Referred By Camilla lazo Referred To Contact Nephrology and Hypertension Referral ID Status Reason Start Date Expiration Date Visits Re quested Visits Authorized [id number] Closed 04/15/2022 04/15/2023 1 Encounter Details Date Type Department Care Team (Latest Contact Info) Description 05/17/2022 3:00 PM CDT External Outreach Division of Nephrology and Hypertension in [place], [place] [address] [place] [address] Jun Farah Jr., D.O. [address] [place] [address] Hypertension And Chronic Kidney Disease Stage 1 (Primary Dx); Diabetes Mellitus Type 2 (HCC); Trisomy 21 (HCC); Urolithiasis Social History Tobacco Use Types Packs/Day Years Used Date Smoking Tobacco: Never Assessed Nutrition Answer Date Recorded Nutrition: EVOO Fat Source Unknown 03/28 Nutrition: Servings of Fruits/Vegetables per Day Not on file 03/28/2020 Dental Answer Date Recorded Dental: Regular Dentist Unknown 03/28/19 21 Sex and Gender Information Value Date Recorded Sex Assigned at Not on file Gender Identity Not on file Sexual Orientation Not on file documented as of this encounter Last Filed Vital Signs Vital Sign Reading Time Taken Comments Blood Pressure 130/64 05/17/2022 3:03 PM CDT Pulse 88 05/17/2022 3:03 PM CDT Temperature - - Respiratory Rate - - Oxygen Saturation - - Inhaled Oxygen Concentration - - Weight 123 kg (270 lb 15.1 oz) 05/17/2022 3:03 P M CDT Height 157.4 cm (5' 1.97) 05/17/2022 3:03 PM CD T Body Mass Index 49.61 05/17/2022 3:03 PM CDT documented in this encounter Progress Notes * Jun Farah Jr., D.Shantanu. - 05/17/2022 3:00 PM CDT Referring Provider: No primary care provider on file. SUBJECTIVE REASON FOR VISIT [place] [facility] Follow-up regards hypertension, diabetes mellitus, urolithiasis, CKD stage 1 HISTORY OF PRESENT ILLNESS Ms. Ibarra is a 61 y.o. female who presents with trisomy 21 and the above issues. Since our last visit work has been going well, no cardiovascular nor constitutional complaints. Shehas been free of hypoglycemic events, and her hemoglobin A1c is excellent at 6.9%. She is had no neuropathic nor ocular manifestations of her diabetes, and no proteinuria. Blood pressures been excellent she is had no orthostatic issues no lower extremity swelling. She was seen in the ER regards abdominal pain which she was concerned could have been due to her hernia. This was ruled out, she has been asked not to lift more than 10 lb at work though. She is had no flank pain, she is passed no gross hematuria, but she believes she is had a few stonegranules past. These passed without incident. past medical history: 1. Diabetes mellitus type 2 2. Hypertension 3. CKD stage 1 4. Trisomy 21 5. Hyperlipidemia 6. Medically complicated overweight Current Outpatient Medications: acetaminophen (TYLENOL) 500 mg tablet, Take 2 tablets by mouth 2 (two) times a day as needed. Pain/fever, Disp: , Rfl: allopurinoL (ZYLOPRIM) 100 mg tablet, Take 1 tablet (100 mg total) by mouth daily., Disp: 90 tablet, Rfl: 3 gabapentin (NEURONTIN) 100 mg capsule, Take 1 capsule (100 mg total) by mouth 2 (two) times a day.,Disp: 180 capsule, Rfl: 3 hydroCHLOROthiazide (HYDRODIURIL) 12.5 mg tablet, TAKE 1 TABLET BY MOUTH ONE TIME DAILY, Disp: 90 tablet, Rfl: 3 metFORMIN (GLUCOPHAGE) 500 mg tablet, [...] 2 tablets (20 mEq total) by mouth daily with breakfast., Disp: 90 tablet, Rfl: 3 sucralfate (CARAFATE) 1 gram tablet, TAKE ONE TABLET BY MOUTH EVERY SIX HOURS, Disp: 360 tablet, Rfl: 0 tamsulosin (FLOMAX) 0.4 mg 24 hr capsule, Take 1 capsule (0.4 mg total) by mouth daily. use on at first sign of flank pain for easing passage of kidney stones, Disp: 10 capsule, Rfl: 2 REVIEW OF SYSTEMS All other systems reviewed and are negative. OBJECTIVE BP 130/64 Pulse 88 Ht 157.4 cm Wt 123 kg BMI 49.61 kg/m?? PHYSICAL EXAMINATION General: Awake alert oriented HEENT: FADI, EOMI, Mucous membranes moist, no oral lesions Neck: No Masses, No Bruits Lungs: Clear to ascultation Heart: Regular Rate and Rhythm, No ectopy Murmurs or rubs Abdomen: Soft, Non-tender Extremities: No cyanosis, No clubbing: Non pitting edema Neuro: Cranial Nerves intact, Gait is normal, strength grossly normal Skin: no suspicious lesions identified Psychiatric: Normal affect DIAGNOSTICS Note creatinine 1.0, microalbumin to creatinine ratio 20 milligrams/gram, hemoglobin A1c 6.9% normal CBC ASSESSMENT / PLAN #1 Hypertension And Chronic Kidney Disease Stage 1 Her blood pressure has been excellent, her renal function remains normal without microalbuminuria. I will continue to visit with her on a 6 monthly basis, she will avoid NSAIDs, goal blood pressure less than 120/90, goal glycosylated hemoglobin less than 8% all these have been achieved. In addition, she is metabolically and surgically inactive urolithiasis, which we reminded her to continue to follow a low-sodium diet and uro dilution regimen along with her citrate supplementation and thiazide diuretic. #2 Diabetes Mellitus Type 2 (HCC) Excellent glycemic control I congratulated her. We discussed her weight, would be hopeful she couldkeep her weight steady until our next visit. #3 Trisomy 21 (HCC) #4 Urolithiasis As above, 1. Urine dilution, urine assisted living care manager in color than lemonade, goal urine output at least 2.5 L 2. Continue with citrate supplementation 3. Continue with thiazide diuretic 4. Continue to avoid sodium, sodium less than 2500 mg intake per day 5. Low oxalate diet 6. Avoid any vitamin-D or calcium supplements for now. Total time: 30 minutes Counseling Time: 25 minutes Jun Farah Jr., D.O. documented in this encounter Plan of Treatment Not on file documented as of this encounter Visit Diagnoses Diagnosis Hypertension And Chronic Kidney Disease Stage 1- Primary Diabetes Mellitus Type 2 (HCC) Trisomy 21 (HCC) Urolithiasis documented in this encounter
--- OUTSIDE RECORDS SUMMARY | 2023-02-15 12:06 | XMS_ITS ---
Author Name Unknown Organization [facility] Address [address] [place] [address] Care Team Providers Care Power Generation Turbine Room Operator Name Role Phone Unavailable Unavailable Unavailable Surgery Details Not on file Complications Check Surgery Details section. Procedure Estimated Blood Loss Check Surgery Details section. Procedure Findings Check Surgery Details section. Procedure Specimens Taken Check Surgery Details section.
--- OUTSIDE RECORDS SUMMARY | 2023-02-15 12:06 | XMS_ITS | Encounter Summary ---
Author Name Unknown Organization [facility] Address [address] [place] [address] Care Team Providers Care Tractor Trailer Moving Van Driver Name Role Phone Unavailable Primary Care Provider Unavailabl e Reason for Visit * Reason Comments Med Refill Encounter Details Date Type Department Care Team (Late st Contact Info) Description 10/31/2022 Refill Division of Nephrology and Hypertension in [place], [place] [address] [place] [address] Jun Farah Jr., D.O. [address] [place] [address] Med Refill Social History Tobacco Use Types Packs/Day Years [...]
--- OUTSIDE RECORDS SUMMARY | 2023-02-15 12:06 | XMS_ITS | Encounter Summary ---
Author Name Unknown Organization [facility] Address [address] [place] [address] Care Team Providers Care Maritime Pilot Name Role Phone Unavailable Primary Care Provider Unavailabl e Reason for Visit * Appointment Request (Routine) - Closed Specialty Diagnoses / Procedures Referred By Camilla lazo Referred To Contact Nephrology and Hypertension Referral ID Status Reason Start Date Expiration Date Visits Re quested Visits Authorized [id number] Closed 09/30/2022 09/30/2023 1 1 Encounter Details Date Type Department Care Team (Latest Contact Info) Description 11/16/2022 11:30 AM CDT External Outreach Division of Nephrology and Hypertension in [place], [place] [address] [place] [address] Jun Farah Jr., D.O. [address] [place] [address] Hypertension And Chronic Kidney Disease Stage 1 (Primary Dx); Urolithiasis; Diabetes Mellitus Type 2 (HCC); Trisomy 21 (HCC) Social History Tobacco Use Types Packs/Day Years [...] Sign Reading Time Taken Comments Blood Pressure 120/74 11/16/2022 11:33 AM CDT Pulse 70 11/16/2022 11:33 AM CDT Temperature - - Respiratory Rate - - Oxygen Saturation - - Inhaled Oxygen Concentration - - Weight 117 kg (258 lb 13.1 oz) 11/16/2022 11:33 AM CDT Height 157.4 cm (5' 1.97) 11/16/2022 11:33 AM C DT Body Mass Index 47.39 11/16/2022 11:33 AM CDT documented in this encounter Progress Notes * Jun Farah Jr., Jordan.Shantanu. - 11/16/2022 11:30 AM CDT Referring Provider: No primary care provider on file. SUBJECTIVE REASON FOR VISIT [place] out reach CKD Clinic Follow-up regards urolithiasis, chronic kidney disease, hypertension HISTORY OF PRESENT ILLNESS Ms. Ibarra is a 62 y.o. female who presents with longstanding history of metabolically and surgically indeterminate urolithiasis. She has been doing well with urine dilution efforts, citrate supplementation, and thiazide therapy to relieve her of her previously noted hypercalciuria. We reviewed her studies including a 24 hour urine studies, she made 3200 cc of volume. She has had no gravel passage no hematuria no flank pain. Congratulated her on excellent adherence to her diet as well with low 24 hour urine sodium levels. Her blood pressures been excellent she has had no orthostatic issues fortunately. Her glycemic control has also been excellent she has had no hypoglycemic events, she has some left foot tingling but this is likely due to another issue. She has had no cardiovascular complaints, no constitutional complaints. However in June she fell on some muddy ground beside a sidewalk. She fractured her left ankle requiring a plate and screws. She had to go through physical therapy, was in an orthotic boot for many weeks, she is now back to work and doing well. She is having some mild tingling in her toes following this fracture. No past medical history on file. Current Outpatient Medications: allopurinoL (ZYLOPRIM) 100 mg tablet, Take 1 tablet (100 mg total) by mouth daily., Disp: 90 tablet, Rfl: 3 gabapentin (NEURONTIN) 100 mg capsule, Take 1 capsule (100 mg total) by mouth 2 (two) times a day.,Disp: 180 capsule, Rfl: 3 hydroCHLOROthiazide (HYDRODIURIL) 12.5 mg tablet, Take 1 tablet (12.5 mg total) by mouth daily., Disp: 90 tablet, Rfl: 3 metFORMIN (GLUCOPHAGE) 500 mg tablet, Take 0.5 tablets (250 mg total) by mouth daily with breakfast., Disp: 45 tablet, Rfl: 3 omeprazole (PriLOSEC) [address] capsule, Take 1 capsule (20 mg total) by mouth 2 (two) times a day.,Disp: 180 capsule, Rfl: 3 potassium citrate (UROCIT-K) 10 mEq (1,080 mg) ER tablet, Take 2 tablets (20 mEq total) by mouth daily with breakfast., Disp: 180 tablet, Rfl: 3 sucralfate (CARAFATE) 1 gram tablet, Take 1 tablet (1 g total) by mouth every 6 (six) hours., Disp:360 tablet, Rfl: 3 tamsulosin (FLOMAX) 0.4 mg 24 hr capsule, Take 1 capsule (0.4 mg total) by mouth daily. use on at first sign of flank pain for easing passage of kidney stones, Disp: 10 capsule, Rfl: 2 acetaminophen (TYLENOL) 500 mg tablet, Take 2 tablets by mouth 2 (two) times a day as needed. Pain/fever, Disp: , Rfl: omega-3 fatty acids/fish oil (OMEGA 3 FISH OIL ORAL), Take 1 capsule by mouth daily. 1000mg capsule, Disp: , Rfl: REVIEW OF SYSTEMS All other systems reviewed and are negative. OBJECTIVE BP 120/74 Pulse 70 Ht 157.4 cm Wt 117 kg BMI 47.39 kg/m?? PHYSICAL EXAMINATION General: Awake alert oriented [...] Psychiatric: Normal affect DIAGNOSTICS Note serum creatinine normal, microalbumin to creatinine level less than 30, hemoglobin A1c 6.9%, 24 hour urine studies reviewed excellent results ASSESSMENT / PLAN #1 Hypertension And Chronic Kidney Disease Stage 1 Her blood pressure has met goal correction values I refilled her medications. We will see 1 another in 6 months and otherwise: 1. Goal blood pressure less than 125/85-achieved 2. Goal glycosylated hemoglobin less than 7.5%-achieved 3. Low-sodium diet-achieved 4. No NSAIDs or Holloway 2 inhibitors 5. Continue stay active and have a goal of maintaining her weight. #2 Urolithiasis Metabolically and surgically inactive, reviewed her supersaturation studies and her 24 hour urines. Going forward: 1. Low oxalate diet 2. Low-sodium diet 3. No high fructose corn syrup beverages 4. Continue with her urine dilution efforts which she has been extremely successful with 5. Continue on hydrochlorothiazide 6. Continue on her citrate supplements. #3 Diabetes Mellitus Type 2 (HCC) Excellent glycemic control, she will continue on her current oral hypoglycemic agents. #4 Trisomy 21 (HCC) She is doing quite well. Total time: 35 minutes Counseling Time: 30 minutes Jun Farah Jr., D.O. documented in this encounter Plan of Treatment Not on file documented as of this encounter Visit Diagnoses Diagnosis Hypertension And Chronic Kidney Disease Stage 1- Primary Urolithiasis Diabetes Mellitus Type 2 (HCC) Trisomy 21 (HCC) documented in this encounter
--- OUTSIDE RECORDS SUMMARY | 2023-02-15 12:06 | XMS_ITS | Clinical Summary ---
Author Name Unknown Organization [facility] Address [address] [place] [address] Care Team Providers Care Calibration Laboratory Technician Name Role Phone Unavailable Primary Care Provider Unavailabl e Source Comments Patient records contain information from all sites at [facility]. For routine questions regarding patient records, call [phone] during business hours, M-F 8:00 AM - 5:00 PM Central Time. Record requests for emergency care only can be directed to [phone] at any time.[facility] Allergies No known active allergies Medications Medication Sig Dispensed Refills Start Date End Date Status acetaminophen (TYLENOL) 500 mg tablet Take 2 tablets by mouth 2 (two) times a day as needed. Pain/fever 0 12/18/2012 Active omega-3 fatty acids/fish oil (OMEGA 3 FISH OIL ORAL) Take 1 capsule by mouth daily. 1000mg capsule 0 12/18/2012 Active metFORMIN (GLUCOPHAGE) 500 mg tablet Take 0.5 tablets (250 mg total) by mouth daily with breakfast. 45 tablet 3 11/16/2022 11/16/2023 Active tamsulosin (FLOMAX) 0.4 mg 24 hr capsule Take 1 capsule (0.4 mg total) by mouth daily. use on at first sign of flank pain for easing passage of kidney stones 10 capsule 2 11/16/2022 11/16/2023 Active gabapentin (NEURONTIN) 100 mg capsule Take 1 capsule (100 mg total) by mouth 2 (two) times a day. 180 capsule 3 11/16/2022 11/16/2023 Active omeprazole (PriLOSEC) [address] capsule Take 1 capsule (20 mg total) by mouth 2 (two) times a day. 180 capsule 3 11/16/2022 11/16/2023 Active allopurinoL (ZYLOPRIM) 100 mg tablet Take 1 tablet (100 mg total) by mouth daily. 90 tablet 3 11/16/2022 11/16/2023 Active hydroCHLOROthiazide (HYDRODIURIL) 12.5 mg tablet Take 1 tablet (12.5 mg total) by mouth daily. 90 tablet 3 11/16/2022 11/16/2023 Active potassium citrate (UROCIT-K) 10 mEq (1,080 mg) ER tablet Take 2 tablets (20 mEq total) by mouth daily with breakfast. 180 tablet 3 11/16/2022 11/16/2023 Active sucralfate (CARAFATE) 1 gram tablet Take 1 tablet (1 g total) by mouth every 6 (six) hours. 360 tablet 3 11/16/2022 11/16/2023 Active Active Problems Problem Noted Date Diagnosed Date Trisomy 21 11/10/2021 Hypertension And Chronic Kidney Disease Stage 1 01/04/2018 Urolithiasis 06/29/2017 Diabetes Mellitus Type 2 12/17/2015 Encounters Date Type Department Care Team Description 11/16/2022 11:30 AM CDT External Outreach Division of Nephrology and Hypertension in [place], [place] [address] [place] [address] Jun Farah Jr., D.O. Hypertension And Chronic Kidney Disease Stage 1 (Primary Dx); Urolithiasis; Diabetes Mellitus Type 2 (HCC); Trisomy 21 (HCC) from Last 3 Months Social History Tobacco [...] - Respiratory Rate 16 06/16/2016 1:50 PM CDT Vital sign result from Clinical Notes. Oxygen Saturation - - Inhaled Oxygen Concentration - - Weight 117 kg (258 lb 13.1 oz) 11/16/2022 11:33 AM CDT Height 157.4 cm (5' 1.97) 11/16/2022 1 1:33 AM CDT Body Mass Index 47.39 11/16/2022 11:33 AM CDT Plan of Treatment Health Maintenance Due Date Last Done Comments CT Colonography 1960 Cervical Cancer Screening 1960 Cologuard 1960 Colonoscopy 1960 Colorectal Cancer Screening 1960 Creatinine Level (Kidney Fun ction Test) 1960 Diabetic Office Visit with F oot Exam 1960 Dilated Eye Exam 1960 FIT 1960 HIV Screening 1960 Hemoglobin A1C 1960 Hepatitis C Screening 1960 Lipid (Cholesterol) Screening 1960 Mammogram 1960 Sodium Level 1960 Urine Albumin 1960 Hepatitis B Vaccines (1 of 3 - Risk 3-dose series) 2020 Potassium Level 09/15/2021 09/15/2020 Depression Screening (Annual PHQ-2) 02/07/2022 COVID-19 Vaccine (2022-2 4 season) 2022 09/09/2022, 10/20/2021, 05/10/2021, Additional history exists Office Visit for Blood Press ure Check / Re-check 11/17/2023 11/16/2022 DTaP,Tdap,and Td Vaccines (2 - Td or Tdap) 04/20/2027 04/19/2017, 05/01/2007 Zoster Vaccines Completed 10/23/2017, 08/07/2017 Pneumococcal vaccine (0-64 years) Completed 09/09/2022, 12/16/2020, 05/07/2014 Influenza Vaccine Completed 11/23/2022, , 10/28/2020, Additional history exists
--- OUTSIDE RECORDS SUMMARY | 2023-02-15 12:06 | XMS_ITS | Encounter Summary ---
Author Name Unknown Organization [facility] Address [address] [place] [address] Care Team Providers Care Backup Sawyer Name Role Phone Unavailable Primary Care Provider Unavailabl e Reason for Visit * Reason Comments Med Refill Encounter Details Date Type Department Care Team (Late st Contact Info) Description 05/18/2022 Refill Division of Nephrology and Hypertension in [place], [place] [address] [place] [phone] Colleen Rousseau M.D., Ph.D. [address] [place] [address] Med Refill Social History Tobacco Use Types [...]
--- OUTSIDE RECORDS SUMMARY | 2023-02-15 12:06 | XMS_ITS | Referral Summary ---
Author Name Unknown Organization [facility] Address [address] [place] [address] Care Team Providers Care Ict Systems Test Engineer Name Role Phone Unavailable Primary Care Provider Unavailabl e Source Comments Patient records contain information from all sites at [facility]. For routine questions regarding patient records, call [phone] during business hours, M-F 8:00 AM - 5:00 PM Central Time. Record requests for emergency care only can be directed to [phone] at any time.[facility] Encounters Date Type Department Care Team Description 11/16/2022 11:30 AM CDT External Outreach Division of Nephrology and Hypertension in [place], [place] [address] [place] [address] Jun Farah Jr., D.O. Hypertension And Chronic Kidney Disease Stage 1 (Primary Dx); Urolithiasis; Diabetes Mellitus Type 2 (HCC); Trisomy 21 (HCC) from Last 3 Months Allergies No known active allergies Medications Medication [...] Problems Problem Noted Date Diagnosed Date Trisomy 11/10/2021 Hypertension And Chronic Kidney Disease Stage 1 01/04/2018 Urolithiasis 06/29/2017 Diabetes Mellitus Type 2 12/17/2015 Social History Tobacco Use Types Packs/Day Years [...] 11/16/2022 11:33 AM CDT Plan of Treatment Not on file
--- OUTSIDE RECORDS SUMMARY | 2023-02-15 12:06 | XMS_ITS | Encounter Summary ---
Author Name Unknown Organization [facility] Address [address] [place] [address] Care Team Providers Care Customer Leader Name Role Phone Unavailable Primary Care Provider Unavailabl e Reason for Visit * Reason Comments Med Refill Encounter Details Date Type Department Care Team (Late st Contact Info) Description 05/11/2022 Refill Division of Nephrology and Hypertension in [place], [place] [address] [place] [phone] Jun Farah Jr., D.O. [address] [place] [address] Med Refill Social History Tobacco Use Types [...]
[2023-02-15 13:05] LABS: Appearance Urine Clear (Clear); Bilirubin Urine Negative (Negative); Blood Urine Negative (Negative); Color Urine Yellow (Yellow); Glucose Urine Negative (Negative); Ketones Urine Negative (Negative)
[2023-02-15 13:06] LABS: Leukocyte Esterase Urine Negative (Negative); Nitrite Urine Negative (Negative); Protein Urine Negative (Negative); RBC Urine 0-2 (0-2); Urobilinogen Urine 0.2 (0.2-1.0); WBC Urine 0-2 (0-5)
[2023-02-15 13:31] VITALS: BP 155/75; PULSE 76; RESP 16; TEMP 35.7; O2SAT 97
== END 2023-02-15 13:32 | disposition home or self-care (01) ==
PROVIDERS: Emergency Provider Emergency Medicine Emergency Medical Services; PCP Physician Assistant Medical
DX: K46.9 Unspecified abdominal hernia without obstruction or gangrene (principal)
CPT/HCPCS: 74176; 81001; 99283; 99284

== ENCOUNTER 2023-03-24 11:04 | Outpatient (CLI) | payer MEDICARE, MEDICAID, SELFPAY ==
--- NOTE | 2023-03-24 11:00 | US_ITS ---
Patient: DELPHINE Esquivel BING Facility:?[facility] Patient ID:?[id number] Site Patient ID:?[id number]. Site :?03/24/2023 Study:?US-Abdomen -03/24/2023 11:49:43 AM Ordering Physician:?Vidya Arredondo Final Report: INDICATION: Rule out gallbladder disease; Cholelithiasis. COMPARISON: none TECHNIQUE: Real time cedeño scale imaging and color Doppler analysis was performed of the gallbladder. FINDINGS: The gallbladder is of normal size and there is an echogenic and shadowing stone is present measuring 4.4 x 2.3 x 2.4 cm. The gallbladder wall measures 1.8 mm in thickness. The common bile duct is of normal size and measures 5.6 mm in diameter at the level of the vikas hepatis. IMPRESSION: Large gallstone in the gallbladder. No biliary obstruction. Dictated by Scott Mederos MD @ 03/24/2023 12:23:49 PM Signed by:?Scott Mederos MD @03/24/2023 12:23:49 PM (Electronic Signature)
--- OUTSIDE RECORDS SUMMARY | 2023-03-24 11:09 | XMS_ITS | Encounter Summary ---
Author Name Unknown Organization [facility] Address [address] [place] [address] Care Team Providers Care Aws Software Development Engineer Name Role Phone Unavailable Primary Care Provider Unavailabl e Reason for Visit * Reason Comments Med Refill Encounter Details Date Type Department Care Team (Late st Contact Info) Description 05/18/2022 Refill Division of Nephrology and Hypertension in [place], [place] [address] [place] [phone] Colleen Rousseau M.D., Ph.D. [address] [place] [phone] Med Refill Social History Tobacco Use Types [...]
--- OUTSIDE RECORDS SUMMARY | 2023-03-24 11:09 | XMS_ITS | Encounter Summary ---
Author Name Unknown Organization [facility] Address [address] [place] [address] Care Team Providers Care Programming Specialist Name Role Phone Unavailable Primary Care Provider Unavailabl e Reason for Visit * Appointment Request (Routine) - Closed Specialty Diagnoses / Procedures Referred By Camilla lazo Referred To Contact Nephrology and Hypertension Referral ID Status Reason Start Date Expiration Date Visits Re quested Visits Authorized [id number] Closed 04/15/2022 04/15/2023 1 Encounter Details Date Type Department Care Team (Latest Contact Info) Description 05/17/2022 3:00 PM CDT External Outreach Division of Nephrology and Hypertension in [place], [place] [address] [place] [address] Jun Farah Jr., D.O. [address] [place] [address] Hypertension And Chronic Kidney Disease Stage 1 [...] provider on file. SUBJECTIVE REASON FOR VISIT [place] out reach CKD Clinic Follow-up regards hypertension, [...] Urolithiasis As above, 1. Urine dilution, urine medical technical writer in color than lemonade, goal urine output [...]
--- OUTSIDE RECORDS SUMMARY | 2023-03-24 11:09 | XMS_ITS | Clinical Summary ---
Author Name Unknown Organization [facility] Address [address] [place] [address] Care Team Providers Care Health Unit Clerk Name Role Phone Unavailable Primary Care Provider Unavailabl e Source Comments Patient records contain information from all sites at [facility]. For routine questions regarding patient records, call [phone] during business hours, M-F 8:00 AM - 5:00 PM Central Time. Record requests for emergency care only can be directed to [phone] at any time.[facility] Allergies No known active allergies Medications Medication [...] Active Problems Problem Noted Date Diagnosed Date 11/10/2021 Hypertension And Chronic Kidney Disease Stage 1 01/04/2018 Urolithiasis 06/29/2017 Diabetes Mellitus Type 2 12/17/2015 Social History Tobacco Use Types Packs/Day Years Used Date Smoking Tobacco: Never Assessed Nutrition Answer Date Recorded Nutrition: EVOO Fat Source Unknown 03/28 Nutrition: Servings of Fruits/Vegetables per Day Not on file 03/28/2020 Dental Answer Date Recorded Dental: Regular Dentist Unknown 03/28/19 Sex and Gender Information Value Date Recorded [...] 3-dose series) 2020 Potassium Level 09/15/2021 09/15/2020 COVID-19 Vaccine (2022-2 4 season) 2022 09/09/2022, 10/20/2021, 05/10/2021, Additional history exists Depression Screening (Annual PHQ-2) 02/07/2023 Office Visit for Blood Press ure Check / Re-check 11/17/2023 11/16/2022 DTaP,Tdap,and Td Vaccines (2 - Td or Tdap) 04/20/2027 04/19/2017, 05/01/2007 Zoster Vaccines Completed 10/23/2017, 08/07/2017 Pneumococcal vaccine (0-64 years) Completed 09/09/2022, 12/16/2020, 05/07/2014 Influenza Vaccine Completed 11/23/2022, , 10/28/2020, Additional history exists
--- OUTSIDE RECORDS SUMMARY | 2023-03-24 11:09 | XMS_ITS | Encounter Summary ---
Author Name Unknown Organization [facility] Address [address] [place] [address] Care Team Providers Care Grounds Manager Name Role Phone Unavailable Primary Care Provider Unavailabl e Reason for Visit * Reason Comments Med Refill Encounter Details Date Type Department Care Team (Late st Contact Info) Description 10/31/2022 Refill Division of Nephrology and Hypertension in [place], [place] [address] [place] [phone] Jun Farah Jr., D.O. [address] [place] [address] Med Refill Social History Tobacco Use Types [...]
--- OUTSIDE RECORDS SUMMARY | 2023-03-24 11:09 | XMS_ITS | Clinical Summary ---
Author Name Unknown Organization [facility] Address [address] [place] [address] Care Team Providers Care Photographic Machine Operator Name Role Phone Vidya Arredondo PA-C Primary Care Provider [phone] Allergies Active Allergy Reactions Criticality Noted Date [...] of 2 - PCV) 12/16/2021 12/16/2020, 05/07/2014 COVID-19 Vaccine (5 - 2022- season) 2022 05/10/2021, 12/05/2020, 05/14/2020, Additional history exists INFLUENZA VACCINE (#1) 2022 , 10/22/2019, 10/22/2019, Additional history exists PHQ-2 (once per calendar year) 2023 DTAP/TDAP/TD IMMUNIZATION (2 - Td or Tdap) [...] age to complete this topic Care Teams Photographic Machine Operator Relationship Specialty Start Date End Date Vidya Arredondo PA-C [address] [place] [address] PCP - General 08/25/20
--- OUTSIDE RECORDS SUMMARY | 2023-03-24 11:09 | XMS_ITS | Encounter Summary ---
Author Name Unknown Organization [facility] Address [address] [place] [address] Care Team Providers Care Chemical Analytical Sampler Name Role Phone Unavailable Primary Care Provider Unavailabl e Reason for Visit * Reason Comments Med Refill Encounter Details Date Type Department Care Team (Late st Contact Info) Description 05/11/2022 Refill Division of Nephrology and Hypertension in [place], [place] [address] [place] [phone] Jun Farah Jr., D.O. [address] [place] [address] Med Refill Social History Tobacco Use Types [...]
--- OUTSIDE RECORDS SUMMARY | 2023-03-24 11:09 | XMS_ITS | Clinical Summary ---
Author Name Unknown Organization [facility] Address [place], [place] [address] Care Team Providers Care Detective Bureau Chief Name Role Phone Valenteal Darenjavi Primary Care [...] Comments Blood Pressure 121/77 03/25/2010 5:10 PM HOMEMAKER COMPANION Pulse 98 03/25/2010 5:10 PM HOMEMAKER COMPANION Temperature 36.2 ??C (97.2 ??F) 03/25/2010 3:55 PM CS T Respiratory Rate 16 03/25/2010 5:10 PM HOMEMAKER COMPANION Oxygen Saturation 93% 03/25/2010 5:10 PM HOMEMAKER COMPANION Inhaled Oxygen Concentration - - Weight 118 kg (260 lb 2.3 oz) 03/25/2010 1:20 PM HOMEMAKER COMPANION Height 160 cm (5' 2.99) 03/25/2010 1:20 PM HOMEMAKER COMPANION Body Mass Index 46.09 03/25/2010 1:20 PM HOMEMAKER COMPANION Plan of Treatment Health Maintenance Due Date [...] this topic Medical Devices Implanted Type Area Residential Construction Instructor Device Identifier Shelf Expiration Date Model / Serial / Lot Stent Uret [id number] Silhouette Xtraflo - [id number] Implanted:Qty: 1 on 03/18/2010 at [facility] Left: [employer] Doutor Recomenda [id number] / / [id number] Care Teams Detective Bureau Chief Relationship Specialty Start Date End Date Jessika Zheng PCP - General 03/17/10
--- OUTSIDE RECORDS SUMMARY | 2023-03-24 11:09 | XMS_ITS | Encounter Summary ---
Author Name Unknown Organization [facility] Address [address] [place] [address] Care Team Providers Care Customer Support Agent Name Role Phone Unavailable Primary Care Provider Unavailabl e Reason for Visit * Appointment Request (Routine) - Closed Specialty Diagnoses / Procedures Referred By Camilla lazo Referred To Contact Nephrology and Hypertension Referral ID Status Reason Start Date Expiration Date Visits Re quested Visits Authorized [id number] Closed 09/30/2022 09/30/2023 1 1 Encounter Details Date Type Department Care Team (Latest Contact Info) Description 11/16/2022 11:30 AM CDT External Outreach Division of Nephrology and Hypertension in [place], [place] [address] [place] [address] Jun Farah Jr., D.O. [address] [place] [address] Hypertension And Chronic Kidney Disease Stage 1 [...] provider on file. SUBJECTIVE REASON FOR VISIT [facility] Follow-up regards urolithiasis, [...]
--- OUTSIDE RECORDS SUMMARY | 2023-03-24 11:09 | XMS_ITS | Referral Summary ---
Author Name Unknown Organization [facility] Address [address] [place] [address] Care Team Providers Care Sales Agent Financial Report Service Name Role Phone Vidya Arredondo PA-C Primary Care Provider [phone] Allergies Active Allergy Reactions Criticality Noted Date [...] of Treatment Not on file Care Teams Sales Agent Financial Report Service Relationship Specialty Start Date End Date Vidya Arredondo PA-C [address] [place] [address] PCP - General 08/25/20
--- OUTSIDE RECORDS SUMMARY | 2023-03-24 11:09 | XMS_ITS ---
Author Name Unknown Organization [facility] Address [address] [place] [address] Care Team Providers Care Citizenship Teacher Name Role Phone Unavailable Unavailable Unavailable Surgery Details Not on file Complications Check Surgery Details section. Procedure Estimated Blood Loss Check Surgery Details section. Procedure Findings Check Surgery Details section. Procedure Specimens Taken Check Surgery Details section.
--- OUTSIDE RECORDS SUMMARY | 2023-03-24 11:09 | XMS_ITS | Referral Summary ---
Author Name Unknown Organization [facility] Address [address] [place] [address] Care Team Providers Care Firer Locomotive Name Role Phone Unavailable Primary Care Provider Unavailabl e Source Comments Patient records contain information from all sites at [facility]. For routine questions regarding patient records, call [phone] during business hours, M-F 8:00 AM - 5:00 PM Central Time. Record requests for emergency care only can be directed to [phone] at any time.[facility] Allergies No known active allergies Medications Medication [...]
== END 2023-03-24 11:05 | disposition home or self-care (01) ==
PROVIDERS: PCP Physician Assistant Medical; Visit Provider Physician Assistant Medical
DX: K80.20 Calculus of gallbladder without cholecystitis without obstruction (principal)
CPT/HCPCS: 76705

== ENCOUNTER 2023-05-17 13:25 | Outpatient (CLI) | payer MEDICARE, MEDICAID, SELFPAY ==
--- OUTSIDE RECORDS SUMMARY | 2023-06-06 15:19 | XMS_ITS | Clinical Summary ---
Author Name Unknown Organization [facility] Address [address] [place] [address] Care Team Providers Care Metal Technician Name Role Phone Unavailable Primary Care Provider Unavailabl e Source Comments Patient records contain information from all sites at [facility]. For routine questions regarding patient records, call [phone] during business hours, M-F 8:00 AM - 5:00 PM Central Time. Record requests for emergency care only can be directed to [phone] at any time.[facility] Allergies No known active allergies Medications Medication Sig Dispensed Refills Start Date End Date Status acetaminophen (TYLENOL) 500 mg tablet Take 2 tablets by mouth 2 (two) times a day as needed. Pain/fever 12/18/2012 Active omega-3 fatty acids/fish oil (OMEGA 3 FISH OIL ORAL) Take 1 capsule by mouth daily. 1000mg capsule 12/18/2012 Active metFORMIN (GLUCOPHAGE) 500 mg tablet [...] Completed 11/23/2022, , 10/28/2020, Additional history exists Procedures Procedure Name Priority Date/Time Associated Diagnosis Comments EXTI POTASSIUM, S/P Routine 09/15/2020 7 :39 AM CDT from Last 3 Months or Most Recently Relevant to Health Maintenance
--- OUTSIDE RECORDS SUMMARY | 2023-06-06 15:19 | XMS_ITS | Clinical Summary ---
Author Name Unknown Organization [facility] Address [address] [place] [address] Care Team Providers Care Recovery Operator Helper Name Role Phone Vidya Arredondo PA-C Primary Care Provider [phone] Allergies Active Allergy Reactions Criticality Noted Date Comments Propoxyphene 07/28/2020 Medications Medication Sig Dispensed Refills Start Date End Date Status allopurinol (ZYLOPRIM) 100 MG tablet Take 100 mg by mouth every morning Active amoxicillin (AMOXIL) 500 MG tablet Take 2,000 mg by mouth daily as needed (1 hour prior to dental appointments) Active gabapentin (NEURONTIN) 100 MG capsule Take 100 mg by mouth 2 times daily Active glipiZIDE (GLUCOTROL) 5 MG tablet Take 5 mg by mouth 2 times daily (before meals) Active hydrochlorothiazid e (MICROZIDE) 12.5 MG capsule Take 12.5 mg by mouth every morning Active metFORMIN (GLUCOPHAGE) 500 MG tablet Take 250 mg by mouth every morning (1/2 x 500mg) Active omeprazole (PRILOSEC) [address] capsule Take 20 mg by mouth daily as needed (pt taking differently than prescribed; RX states 20mg twice daily) Active potassium citrate (UROCIT-K) 10 MEQ (1080 MG) CR tablet Take 10 mEq by mouth every morning Active tamsulosin (FLOMAX) 0.4 MG capsule Take 0.4 mg by mouth daily as needed Active sucralfate (CARAFATE) 1 GM tablet Take 1 g by mouth 4 times daily Active senna (SENOKOT) 8.6 MG tabletIndications: Endometrial carcinoma (H) Take 1-3 tablets by mouth 2 times daily as needed for constipation 30 tablet 09/15/2020 Active Active Problems Problem Noted Date [...] on patient's age to complete this topic Procedures Procedure Name Priority Date/Time Associated Diagnosis Comments BASIC METABOLIC PANEL Routine 05/05/2017 5:20 AM CDT MA SCREENING DIGITAL BILATERAL Routine 11/25/2010 10:45 AM CDT from Last 3 Months or Most Recently Relevant to Health Maintenance Results * (ABNORMAL) Basic metabolic panel (05/05/2017 5:20 AM CDT) Sodium 138 136 - 145 mmol/L 05/05/2017 9:47 AM CDT [facility] Potassium 4.3 3.5 - 5.0 mmol/L 05/05/2017 9:47 AM CDT [facility] Chloride 101 98 - 107 mmol/L 05/05/2017 9:47 AM CDT [facility] Carbon Dioxide (CO2) 27 22 - 31 mmol/L 05/05/2017 9:47 AM CDT [facility] Anion Gap 10 5 - 18 mmol/L 05/05/2017 9:47 AM CDT [facility] Glucose 130(H) 70 - 125 mg/dL 05/05/2017 9:47 AM CDT [facility] Calcium 9.3 8.5 - 10.5 mg/dL 05/05/2017 9:47 AM CDT [facility] Urea Nitrogen 15 8 - 22 mg/dL 05/05/2017 9:47 AM CDT [facility] Creatinine 0.77 0.60 - 1.10 mg/dL 05/05/2017 9:47 AM CDT [facility] GFR Estimate If Black >60 >60 mL/min/1.7 3m2 05/05/2017 9:47 AM CDT [facility] GFR Estimate >60 >60 mL/min/1.7 3m2 05/05/2017 9:47 AM CDT [facility] Blood specimen (specimen) STRUCTURE OF RIGHT UPPER LIMB / Unknown Venipuncture / Unknown 05/05/2017 5:20 AM CDT 05/05/2017 9:21 AM CDT Narrative [facility] - 05/05/2017 9:47 AM CDT Fasting Glucose reference range is 70-99 mg/dL per [place] [employer] (ADA) guidelines. Joshua Pena NP LAB - BLOOD ORDERABL ES [facility] [address] [place] [address], [facility] [address] [place] [address] * Mammo Screening digital (bilat) (11/25/2010 10:45 AM CDT) Anatomical Region Laterality Modality Breast Bilateral Other 11/25/2010 10:4 5 AM CDT Impressions 11/25/2010 11:03 AM CDT SCREENING MAMMOGRAM, BILATERAL, DIGITAL w/CAD BREAST SYMPTOMS/COMPARISON: 11/19/2009, 11/13/2007 BREAST PARENCHYMAL PATTERN: Mild/Fatty dense FINDINGS: Negative. IMPRESSION: BI-RADS 1, NEGATIVE. Jessika Zheng MD IMG MAMMOGRAPHY O RDERABLES from Last 3 Months or Most Recently Relevant to Health Maintenance Care Teams Recovery Operator Helper Relationship Specialty Start Date End Date Vidya Arredondo PA-C [facility] [address] [facility] [place] [id number] PCP - General 08/25/20
--- OUTSIDE RECORDS SUMMARY | 2023-06-06 15:19 | XMS_ITS | Clinical Summary ---
Author Name Unknown Organization [employer] Address [place], [place] [address] Care Team Providers Care Egg Worker Name Role Phone Vidya Arredondo PA-C Primary Care Provider Allergies Active Allergy Reactions Criticality Noted Date Comments Ketorolac Other - Describe In Comment Field 05/24/2023 Increased pain in right kidney Propoxyphene Throat Swelling/Closing High 03/18/2010 Medications Medication Sig Dispensed Refills Start Date End Date Status gabapentin (NEURONTIN) 100 mg capsule Take 100 mg by mouth 2 times daily. 03/25/2010 Active allopurinoL (ZYLOPRIM) 100 mg tablet Take 1 Tablet (100 mg) by mouth once daily. 04/20/2023 Active glipiZIDE (GLUCOTROL) 5 mg tablet Take 1 Tablet (5 mg) by mouth. 04/20/2023 Active hydroCHLOROthiazide 12.5 mg capsule Take 1 Capsule (12.5 mg) by mouth once daily. 04/20/2023 Active latanoprost (XALATAN) 0.005 % ophthalmic solution 1 Drop at bedtime. 04/20/2023 Active omeprazole (PRILOSEC) 20 mg Delayed-Release capsule Take 1 Capsule (20 mg) by mouth two times daily before meals. 04/20/2023 Active metFORMIN (GLUCOPHAGE) 500 mg tablet Take 1 Tablet (500 mg) by mouth. 04/20/2023 Active tamsulosin (FLOMAX) 0.4 mg capsule Take 0.4 mg by mouth once daily after a meal. 11/16/2022 Active sucralfate (CARAFATE) 1 gram tablet Take 1 g by mouth. Take 1 tablet every 6 hours Active potassium citrate (UROCIT-K) 10 mEq (1,080 mg) tablet Take 20 mEq by mouth once daily. Active oxyCODONE (ROXICODONE) 5 mg immediate release tabletIndications:Sympt omatic cholelithiasis Take 1-2 Tablets (5-10 mg) by mouth every 4 hours if needed for Pain. 10 Tablet 05/25/2023 Active Active Problems Problem Noted Date Diagnosed Date Gallstone 04/18/2023 Symptomatic cholelithiasis 04/18/2023 Encounters Date Type Department Care Team Description 06/01/2023 10:30 AM CDT Nurse/Clinic Staff Only [facility] [address] [place] [phone] NurseMariluz Surgical Followup (05/24 Robotic cholecystectomy) 06/01/2023 Telephone [facility] [address] [place] [phone] Jose Armstrong MD post op appt 06/01/2023 Travel 05/25/2023 2:22 PM CDT Anesthesia Event [address] [address] Katerina Lou CRNA Laberge, Thomas Patrick, MD 05/25/2023 1:17 PM CDT - 05/25/2023 3:14 PM CDT Surgery [address] [address] Jose Armstrong MD Robotic cholecystectomy 05/25/2023 11:51 AM CDT - 05/25/2023 7:20 PM CDT Hospital Encounter [address] [address] Jose Armstrong MD Symptomatic cholelithiasis (Primary Dx) Discharge Disposition: Home Self Care 05/24/2023 Travel 05/17/2023 Orders Only [facility] Scanner 1 scan: (1-Ord) EKG RESULT, 05/17/2023 05/17/2023 Orders Only [facility] Scanner 1 scan: (1-Ord) [facility], EKG, 05/17/2023 05/17/2023 Telephone [facility] [address] [place] [address] Vidya Arredondo PA Medication Management (ketocozole ) 04/20/2023 Telephone [facility] [address] [place] [phone] Jose Armstrong MD Follow Up (New med list) 04/19/2023 Telephone [facility] [address] [place] [phone] Jose Armstrong MD Surgery Scheduled (Robot cholecystectomy) 04/18/2023 2:40 PM CDT Office Visit [facility] [address] [place] [address] Jose Armstrong MD Consult (gallstones) 04/18/2023 Travel 03/28/2023 Transcribe Orders [facility] [address] [place] [phone] Vidya Arredondo PA-C 03/24/2023 Orders Only [facility] Scanner 1 scan: (1-Ord) [facility], 03/24/2023 from Last 3 Months Social History Tobacco Use Types Packs/Day Years Used Date Smoking Tobacco: Never Passive Smoke Exposure: Never Smokeless Tobacco: Never Alcohol Use Standard Drinks/Week Comments No 0 (1 standard drink = 0.6 oz pur e alcohol) Sex and Gender Information Value Date Recorded Sex Assigned at Not on file Gender Identity Not on file Sexual Orientation Not on file Obstetrics History Last Filed Vital Signs Vital Sign Reading Time Taken Comments Blood Pressure 118/60 05/25/2023 7:00 PM CDT Pulse 96 05/25/2023 7:00 PM CDT Temperature 36.4 ??C (97.6 ??F) 05/25/2023 5:11 PM CD T Respiratory Rate 16 05/25/2023 7:00 PM CDT Oxygen Saturation 94% 05/25/2023 7:00 PM CDT Inhaled Oxygen Concentration - - Weight 118.3 kg (260 lb 11.2 oz) 2023 12:41 PM CDT Height 157.5 cm (5' 2) 05/25/2023 12:4 1 PM CDT Body Mass Index 47.68 05/25/2023 12:41 PM CDT Plan of Treatment Health Maintenance Due Date Last Done Comments Tdap 11/12/1971 Depression screening for age 12+ 1972 HIV for age 15-65 11/12/1975 Hepatitis C screening for age 18-79 1978 Tetanus booster 1980 Pap test for age 21-65 1981 Colonoscopy through age 75 2005 Lipids for age 45-75 2005 Mammogram for age 45-75 2005 Zoster (shingles) series for age 50+ (1 of 2) 2010 COVID-19 vaccine series (2022-24 season) 2022 09/09/2022, 10/20/2021, 05/10/2021, Additional history exists Influenza for age 50-64 10/09/2023 BMI (ht and wt on same day) for age 18+ 04/17/2024 04/18/2023 Pneumococcal series for age 6-64 Aged Out No longer eligible based on patient's age to complete this topic Medical Devices Implanted Type Area Cotton Picker Operator Device Identifier Shelf Expiration Date Model / Serial / Lot Stent Uret [id number] Silhouette Xtraflo - [id number] Implanted:Qty: 1 on 03/18/2010 at [facility] Left: [employer] [id number] / / [id number] Procedures Procedure Name Priority Date/Time Associated Diagnosis Comments GLUCOSE METER Timed 05/25/2023 4:34 PM CDT PATH TISSUE EXAM Today 05/25/2023 3:35 PM CDT ENDOTRACHEAL TUBE Routine 05/25/2023 2:5 2 PM CDT ROBOTIC ASSISTED LAPAROSCOPIC CHOLECYSTECTOMY XI 05/25/2023 2:07 PM CDT Gallstone Case Notes 75 MINS-T/FSUPINE Special Needs 5'2, 117.7 kg, BMI 47.44Down SyndromeDM2 GLUCOSE METER Timed 05/25/2023 1:02 PM CDT SCAN-CARDIAC STRIP 05/25/2023 12 :00 AM CDT SCAN-ELECTROCARDIOGRAM EKG 05/17/2023 12:00 AM CDT SCAN-ELECTROCARDIOGRAM EKG 05/17/2023 12:00 AM CDT SCAN-ULTRASOUND REPORT 12:00 AM SALVAGE CLERK from Last 3 Months Results * (ABNORMAL) GLUCOSE METER (05/25/2023 4:34 PM CDT) Only the most recent of2 resultswithin the time period is included. GLUCOSE METER 192(H) 65 - 100 mg/dL 05/25/2023 4:38 PM CDT [facility] Blood BLOOD SPECIMEN / Unknown 05/25/2023 4:34 PM CDT 05/25/2023 4:38 PM CDT Jose Armstrong MD CHEMISTRY [facility] INTERNAL [facility] [address] [place] [address] * PATH TISSUE EXAM (05/25/2023 3:35 PM CDT) Case Report Pathology Report ?Case: [id number] ? Authorizing Provider: ??Jose Armstrong MD ?Collected: ? 05/25/2023 1535 ? Ordering Location: ? [facility] ?Received: ?05/26/2023 0734 ? Pathologist: ? Robin Mcduffie ? MD SERGE ? Specimen: ?Gallbladder ? 05/27/2023 11:23 AM [facility] Final Diagnosis A) GALLBLADDER, CHOLECYSTECTOMY: 1. Chronic cholecystitis 2. Cholelithiasis 3. Negative for dysplasia and malignancy 05/27/2023 11:23 AM [facility] Clinical Information Ms. Ibarra is a 62 y.o. who undergoes cholecystectomy. 05/27/2023 11:23 AM [facility] Gross Description A) Received in formalin, labeled with the patient's name and gallbladder, is a 10.5 x 3.5 x 2.5 cm disrupted gallbladder. ??There are multiple yellow gallstones identified. There are no mucosal lesions identified. The average wall thickness is 0.4 cm with a small amount of attached fat pad. There is no abnormal wall thickening identified. No cystic duct lymph node is identified. Cad Cam Programmer sections are submitted in one cassette. Tissue is placed in formalin at 18: 29 on 05/25/2023. ANA ROSA 05/26/2023 05/27/2023 11:23 AM [facility] Microscopic Description The final diagnosis is based on microscopic examination of appropriate sections of all specimens. 05/27/2023 11:23 AM CDT [facility] Additional Information Interpreted at [facility], Central Laboratory - [address], [place] [address] 05/27/2023 11:23 AM CDT [facility] Tissue SPECIMEN FROM GALLBLADDER / Unknown 05/25/2023 3:35 PM CDT 05/26/2023 7:34 AM CDT Jose Armstrong MD PATHOLOGY/CYTOLOGY [facility] [address] [place] [address], [facility] SENDOUT [place]NAL ZIP [address] [place] [address] * ETT (05/25/2023 2:52 PM CDT) Narrative Maki Braden CRNA Student - 05/25/2023 2:52 PM CDT Maki Braden CRNA Student ? 05/25/2023 ??2:53 PM Procedure: ETT Patient location during procedure: OR ETT Properties Mask Ventilation: oral airway (two hand mask) Final Technique: video laryngoscopy Type: straight Location: oral Cuffed: yes Tube Size: 7.5 mm Stylet: yes Laryngoscope Blade: Glidescope Blade Size: 3 Cormack-Lehane Grade View: 1 Insertion Attempts: 1 Placement Verification: auscultation, end tidal CO2 and symmetrical chest wall movement Assessment: pharynx clear, atraumatic and dentition unchanged Secured at: 22 Measured From: teeth Difficulty: 0 (not difficult) Marian Bautista MD ANESTHESIA PX NOTE ORDERABLES * SCAN-CARDIAC STRIP (05/25/2023 12:00 AM CDT) Narrative 05/25/2023 12:00 AM CDT Ordered by an unspecified provider. Other Clinical Staff OTHER * SCAN-ELECTROCARDIOGRAM EKG (05/17/2023 12:00 AM CDT) Only the most recent of2 resultswithin the time period is included. Scanner OTHER * SCAN-ULTRASOUND REPORT (03/24/2023 12:00 AM SALVAGE CLERK) Anatomical Region Laterality Modality Other Scanner OTHER from Last 3 Months Advance Directives * Full Code (Latest Code Status on File) Date Activated Date Inactivated Comments 05/25/2023 12:19 PM 05/25/2023 9:20 PM Question Answer Comments Code Status Discussion: Discussed Care Teams Egg Worker Relationship Specialty Start Date End Date Vidya Arredondo, DHRUVC [facility] [place] [address] PCP - General Physician Puttying And Calking Supervisor 03/28/23
--- OUTSIDE RECORDS SUMMARY | 2023-06-06 15:19 | XMS_ITS | Referral Summary ---
Author Name Unknown Organization [facility] Address [address] [place] [address] Care Team Providers Care Commercial Energy Rater Name Role Phone Vidya Arredondo PA-C Primary Care Provider [phone] Allergies Active Allergy Reactions Criticality Noted Date [...] CDT Plan of Treatment Not on file Procedures Procedure Name Priority Date/Time Associated Diagnosis Comments BASIC METABOLIC PANEL Routine 05/05/2017 5:20 AM CDT MA SCREENING DIGITAL BILATERAL Routine 11/25/2010 10:45 AM CDT from Last 3 Months or Most Recently Relevant to Health Maintenance Results * (ABNORMAL) Basic metabolic panel (05/05/2017 5:20 AM CDT) Sodium 138 136 - 145 mmol/L 05/05/2017 9:47 AM CDT [facility] Potassium 4.3 3.5 - 5.0 mmol/L 05/05/2017 9:47 AM CDT [facility] Chloride 101 98 - 107 mmol/L 05/05/2017 9:47 AM T [facility] Carbon Dioxide (CO2) 27 22 - 31 mmol/L 05/05/2017 9:47 AM CDT [facility] Anion Gap 10 5 - 18 mmol/L 05/05/2017 9:47 AM T [facility] Glucose 130(H) 70 - 125 mg/dL 05/05/2017 9:47 AM CDT [facility] Calcium 9.3 8.5 - 10.5 mg/dL 05/05/2017 9:47 AM T [facility] Urea Nitrogen 15 8 - 22 mg/dL 05/05/2017 9:47 AM T [facility] Creatinine 0.77 0.60 - 1.10 mg/dL 05/05/2017 9:47 AM T [facility] GFR Estimate If Black >60 >60 mL/min/1.7 3m2 05/05/2017 9:47 AM T [facility] GFR Estimate >60 >60 mL/min/1.7 3m2 05/05/2017 9:47 AM T [facility] Blood specimen (specimen) STRUCTURE OF RIGHT UPPER LIMB / Unknown Venipuncture / Unknown 05/05/2017 5:20 AM CDT 05/05/2017 9:21 AM CDT Narrative [facility] - 05/05/2017 9:47 AM CDT Fasting Glucose reference range is 70-99 mg/dL per [place] Diabetes Association (ADA) guidelines. Joshua Pena NP LAB - BLOOD ORDERABL ES [facility] [address] [address], [facility] [address] [address] * Mammo Screening digital (bilat) (11/25/2010 10:45 [...] Recently Relevant to Health Maintenance Care Teams Commercial Energy Rater Relationship Specialty Start Date End Date Vidya Arredondo PA-C [address] [place] [address] PCP - General 08/25/20
--- OUTSIDE RECORDS SUMMARY | 2023-06-06 15:19 | XMS_ITS ---
Author Name Unknown Organization [facility] Address [address] [place] [address] Care Team Providers Care Extension Service Agent Name Role Phone Unavailable Unavailable Unavailable Surgery Details Not on file Complications Check Surgery Details section. Procedure Estimated Blood Loss Check Surgery Details section. Procedure Findings Check Surgery Details section. Procedure Specimens Taken Check Surgery Details section.
--- OUTSIDE RECORDS SUMMARY | 2023-06-06 15:19 | XMS_ITS | Referral Summary ---
Author Name Unknown Organization [facility] Address [address] [place] [address] Care Team Providers Care Plate Corrector Name Role Phone Unavailable Primary Care Provider Unavailabl e Source Comments Patient records contain information from all sites at [facility]. For routine questions regarding patient records, call [phone] during business hours, M-F 8:00 AM - 5:00 PM Central Time. Record requests for emergency care only can be directed to [phone] at any time.[facility] Allergies No known active allergies [...]
== END 2023-05-17 13:26 | disposition home or self-care (01) ==
LOC: NFLDREF 06-06 15:15
PROVIDERS: PCP Physician Assistant Medical; Referring Provider Physician Assistant Medical; Visit Provider Internal Medicine Nephrology
DX: E11.22 Type 2 diabetes mellitus with diabetic chronic kidney disease (principal); N18.1 Chronic kidney disease, stage 1; E78.5 Hyperlipidemia, unspecified; N20.9 Urinary calculus, unspecified
CPT/HCPCS: 80061; 80069; 82043; 82310; 82570; 82728; 83036; 83540; 83550; 83970; 84450; 84460; 84550

== ENCOUNTER 2023-08-22 07:26 | Outpatient (CLI) | payer MEDICARE, MEDICAID, SELFPAY ==
--- OUTSIDE RECORDS SUMMARY | 2023-08-22 09:33 | XMS_ITS | Encounter Summary ---
Author Organization [facility] Address [address] [place] [address] Care Team Providers Care Metropolitan Editor Name Role Phone Unavailable Primary Care Provider Unavailabl e Reason for Visit * Appointment Request (Routine) - Closed Specialty Diagnoses / Procedures Referred By Camilla lazo Referred To Contact Nephrology and Hypertension Referral ID Status Reason Start Date Expiration Date Visits Re quested Visits Authorized [id number] Closed 05/19/2023 05/18/2024 1 1 Encounter Details Date Type Department Care Team (Latest Contact Info) Description 06/14/2023 11:30 AM CDT External Outreach Division of Nephrology and Hypertension in [place], [place] [address] [place] [address] Jun Farah Jr., D.O. [address] [place] [address] Hypertension And Chronic Kidney Disease Stage 1 (Primary Dx); Diabetes Mellitus Type 2 (HCC); Urolithiasis; Trisomy 21 (HCC) Social History Tobacco Use [...] Sign Reading Time Taken Comments Blood Pressure 120/66 06/14/2023 11:33 AM CDT Pulse 77 06/14/2023 11:33 AM CDT Temperature - - Respiratory Rate - - Oxygen Saturation - - Inhaled Oxygen Concentration - - Weight 114 kg (251 lb 1.7 oz) 06/14/2023 11:33 A M CDT Height 157.4 cm (5' 1.97) 06/14/2023 11:33 AM C DT Body Mass Index 45.97 06/14/2023 11:33 AM CDT documented in this encounter Progress Notes * Jun Farah Jr., D.Shantanu. - 06/14/2023 11:30 AM CDT Referring Provider: No primary care provider on file. SUBJECTIVE REASON FOR VISIT [facility] out reach CKD Follow-up regarding urolithiasis, CKD stage 1, diabetes mellitus, hypertension HISTORY OF PRESENT ILLNESS Ms. Ibarra is a 62 y.o. female who presents with a longstanding history of CKD, stage I, with a history of metabolically and surgically indeterminate urolithiasis Since our last visit she has passed no gravel, no gross hematuria, and has had no flank pain. She does well with urine dilution efforts. From a constitutional perspective she feels well and has not had any complaints. She has no chest pain no shortness of breath. No lower extremity swelling. Her blood pressure has been excellent, in the 110-120 range, without orthostatic issues or lower extremity swelling. She has no PND or orthopnea. She has been free of hypoglycemic events, no neuropathic issues her vision has been stable, her hemoglobin A1c is excellent at 6.8%. History reviewed. No pertinent past medical history. Current Outpatient Medications: acetaminophen (TYLENOL) 500 mg [...] Rfl: omeprazole (PriLOSEC) [address] capsule, Take [...] systems reviewed and are negative. OBJECTIVE BP 120/66 Pulse 77 Ht 157.4 cm Wt 114 kg BMI 45.97 kg/m?? PHYSICAL EXAMINATION General: Awake alert oriented [...] lesions identified Psychiatric: Normal affect DIAGNOSTICS Note normal CBC normal chemistries, no microalbuminuria hemoglobin A1c 6.8% ASSESSMENT / PLAN #1 Hypertension And Chronic Kidney Disease Stage 1 Her blood pressure has been excellent, she has no microalbuminuria, and I congratulated her. There is a familial history of renal disease in her mother is on dialysis. Going forward: 1. Continue current antihypertensive regimen, including hydrochlorothiazide with potassium repletion. Goal blood pressures less than 130/80 2. Goal glycosylated hemoglobin between 6.5 and 7.5% which has been achieved 3. Reminded her to avoid Holloway-2 inhibitors and NSAIDs. And use acetaminophen as her primary pain relief strategy. 4. I have set up a return visit in 6 months. #2 Diabetes Mellitus Type 2 (HCC) Excellent glycemic control, no hypoglycemia, she is reaching target, she is up-to-date on her screening. #3 Urolithiasis This appears to be metabolically and surgically inactive. I advised continuing on her urine dilution efforts, continue with the hydrochlorothiazide, her extra citrate, and she has tamsulosin to use if she has symptomatic stones. She will also avoid adding sodium, and this has been easier as she hasbeen living with her mother. #4 Trisomy 21 (HCC) She continues to work outside the home, was accompanied today by her aunt. Total time: 30 minutes Counseling Time: 15 minutes Jun Farah Jr., D.O. documented in this encounter Plan of Treatment Not on file documented as of this encounter Visit Diagnoses Diagnosis Hypertension And Chronic Kidney Disease Stage 1- Primary Diabetes Mellitus Type 2 (HCC) Urolithiasis Trisomy 21 (HCC) documented in this encounter
--- OUTSIDE RECORDS SUMMARY | 2023-08-22 09:33 | XMS_ITS | Clinical Summary ---
Author Organization [facility] Address [address] [place] [address] Care Team Providers Care Avionics Systems Technician Name Role Phone Unavailable Primary Care Provider Unavailabl e Source Comments Patient records contain information from all sites at [facility]. For routine questions regarding patient records, call [phone] during business hours, M-F 8:00 AM - 5:00 PM Central Time. Record requests for emergency care only can be directed to [phone] at any time.[facility] Allergies No known active allergies Medications [...] Encounters Date Type Department Care Team Description 06/14/2023 11:30 AM CDT External Outreach Division of Nephrology and Hypertension in [place], [place] [address] [place] [address] Jun Farah Jr., D.O. Hypertension And Chronic Kidney Disease Stage 1 (Primary Dx); Diabetes Mellitus Type 2 (HCC); Urolithiasis; Trisomy 21 (HCC) from Last 3 Months [...] kg (251 lb 1.7 oz) 06/14/2023 11:33 AM CDT Height 157.4 cm (5' 1.97) 06/14/2023 1 1:33 AM CDT Body Mass Index 45.97 06/14/2023 11:33 AM CDT Plan of Treatment Health [...] history exists Depression Screening (Annual PHQ-2) 02/07/2023 Influenza Vaccine (#1) 2023 , 10/20/2021, 10/28/2020, Additional history exists Office Visit for Blood Press ure Check / Re-check 06/13/2024 06/14/2023 DTaP,Tdap,and Td Vaccines (2 - Td or Tdap) 04/20/2027 04/19/2017, 05/01/2007 Zoster Vaccines Completed 10/23/2017, 08/07/2017 Pneumococcal vaccine (0-64 years) Completed 09/09/2022, 12/16/2020, 05/07/2014 Procedures Procedure Name Priority Date/Time Associated Diagnosis Comments EXTI POTASSIUM, S/P Routine 09/15/2020 7 :39 AM CDT from Last 3 Months or Most Recently Relevant to Health Maintenance
--- OUTSIDE RECORDS SUMMARY | 2023-08-22 09:33 | XMS_ITS | Referral Summary ---
Author Organization [facility] Address [address] [place] [address] Care Team Providers Care Coach Wirer Name Role Phone Vidya Arredondo PA-C Primary Care Provider [phone] Allergies Active Allergy Reactions Criticality Noted Date [...] 3.5 - 5.0 mmol/L 05/05/2017 9:47 AM T [facility] Chloride 101 98 - 107 mmol/L 05/05/2017 9:47 AM T [facility] Carbon Dioxide (CO2) 27 22 - 31 mmol/L 05/05/2017 9:47 AM T [facility] Anion Gap 10 5 - 18 mmol/L 05/05/2017 9:47 AM T [facility] Glucose 130(H) 70 - 125 mg/dL 05/05/2017 9:47 AM T [facility] Calcium 9.3 8.5 - 10.5 mg/dL 05/05/2017 9:47 AM T [facility] Urea Nitrogen 15 8 - 22 mg/dL 05/05/2017 9:47 AM T [facility] Creatinine 0.77 0.60 - 1.10 mg/dL 05/05/2017 9:47 AM T [facility] GFR Estimate If Black >60 >60 mL/min/1.7 3m2 05/05/2017 9:47 AM T [facility] GFR Estimate >60 >60 mL/min/1.7 3m2 05/05/2017 9:47 AM T [facility] Blood specimen (specimen) STRUCTURE OF RIGHT UPPER LIMB / Unknown Venipuncture / Unknown 05/05/2017 5:20 AM CDT 05/05/2017 9:21 AM CDT Narrative [facility] - 05/05/2017 9:47 AM CDT Fasting Glucose reference range is 70-99 mg/dL per [place] Diabetes Association (ADA) guidelines. Joshua Pena ENVIRONMENTAL FIELD TEAM MEMBER LAB - BLOOD ORDERABL ES [facility] [address] [place] [address], [facility] [address] [address] * Mammo Screening digital (bilat) (11/25/2010 10:45 [...] Recently Relevant to Health Maintenance Care Teams Coach Wirer Relationship Specialty Start Date End Date Vidya Arredondo PA-C [address] [place] [address] PCP - General 08/25/20
--- OUTSIDE RECORDS SUMMARY | 2023-08-22 09:33 | XMS_ITS | Clinical Summary ---
Author Organization [facility] Address [place], [place] [address] Care Team Providers Care Manager Security And Safety Name Role Phone Vidya Arredondo PA-C Primary Care Provider [phone] Allergies Active Allergy Reactions Criticality Noted Date [...] 06/01/2023 10:30 AM CDT Nurse/Clinic Staff Only [facility] [address] [facility] [address] [place] [phone] NurseMariluz Surgical Followup (05/24 Robotic cholecystectomy) 06/01/2023 Telephone [facility] [address] [facility] [address] [place] [phone] Jose Armstrong MD post op appt 06/01/2023 Travel 05/25/2023 2:22 PM CDT Anesthesia Event [address] [address] Katerina Lou CRNA Laberge, Thomas Patrick, MD 05/25/2023 1:17 PM CDT - 05/25/2023 3:14 PM CDT Surgery [address] [address] Jose Armstrong MD Robotic cholecystectomy 05/25/2023 11:51 AM CDT - 05/25/2023 7:20 PM CDT Hospital Encounter [address] [address] Jose Armstrong MD Symptomatic cholelithiasis (Primary Dx) Discharge Disposition: Home Self Care 05/24/2023 Travel from Last 3 Months Social History Tobacco [...] this topic Medical Devices Implanted Type Area Processing Spec Device Identifier Shelf Expiration Date Model / Serial / Lot Stent Uret [id number] Silhouette Xtraflo - [id number] Implanted:Qty: 1 on 03/18/[address] [facility] Left: Ureter [employer] [id number] / / [id number] Procedures Procedure Name Priority Date/Time Associated Diagnosis [...] SCAN-CARDIAC STRIP 05/25/2023 12 :00 AM CDT from Last 3 Months Results * (ABNORMAL) GLUCOSE METER (05/25/2023 4:34 PM CDT) Only the most recent of2 resultswithin the time period is included. GLUCOSE METER 192(H) 65 - 100 mg/dL 05/25/2023 4:38 PM CDT [facility] Blood BLOOD SPECIMEN / Unknown 05/25/2023 4:34 PM CDT 05/25/2023 4:38 PM CDT Jose Armstrong MD CHEMISTRY [facility] SENDOUT INTERNAL ZIP [id number] [place], [place] [id number] * PATH TISSUE EXAM (05/25/2023 3:35 PM CDT) Case Report Pathology Report ?Case: [id number] ? Authorizing Provider: ??Jose Armstrong MD ?Collected: ? 05/25/2023 1535 ? Ordering Location: ? [facility] ?Received: ?05/26/2023 0734 ? Pathologist: ? Robin Mcduffie ? MD SERGE ? Specimen: ?Gallbladder ? 05/27/2023 11:23 AM CDT [facility] Final Diagnosis A) GALLBLADDER, CHOLECYSTECTOMY: 1. Chronic cholecystitis 2. Cholelithiasis 3. Negative for dysplasia and malignancy 05/27/2023 11:23 AM CDT [facility] Clinical Information Ms. Ibarra is a 62 y.o. who undergoes cholecystectomy. 05/27/2023 11:23 AM CDT [facility] Gross Description A) Received in formalin, [...] No cystic duct lymph node is identified. Shotgun Shell Loading Machine Operator sections are submitted in one cassette. Tissue is placed in formalin at 18: 29 on 05/25/2023. ANA ROSA 05/26/2023 05/27/2023 11:23 AM CDT [facility] Microscopic Description The final diagnosis is based on microscopic examination of appropriate sections of all specimens. 05/27/2023 11:23 AM CDT [facility] Additional Information Interpreted at [facility], Central Laboratory - [address] [facility] [address], [place] [address] 05/27/2023 11:[address] AM [address] [facility] LAB[facility] Tissue SPECIMEN FROM GALLBLADDER / Unknown 05/25/2023 3:35 PM CDT 05/26/2023 7:34 AM CDT Jose Armstrong MD PATHOLOGY/CYTOLOGY [facility] [address] [place] [address], [facility] SENDOUT INTERNAL ZIP [id number] [place] [address] * ETT (05/25/2023 2:52 PM CDT) Narrative Maki Braden CRNA Student - 05/25/2023 2:52 PM CDT Maki Braden MEAT PACKER Student ? 05/25/2023 ??2:53 PM Procedure: ETT [...] an unspecified provider. Other Clinical Staff OTHER from Last 3 Months Advance Directives * Full Code (Latest Code Status on File) Date Activated Date Inactivated Comments 05/25/2023 12:19 PM 05/25/2023 9:20 PM Question Answer Comments Code Status Discussion: Discussed Care Teams Manager Security And Safety Relationship Specialty Start Date End Date Vidya Arredondo PA-C [address] [place] [address] PCP - General Physician Parts Analyst 03/28/23
--- OUTSIDE RECORDS SUMMARY | 2023-08-22 09:33 | XMS_ITS | Referral Summary ---
Author Organization [facility] Address [address] [place] [address] Care Team Providers Care Transition Rn Name Role Phone Unavailable Primary Care Provider Unavailabl e Source Comments Patient records contain information from all sites at [facility]. For routine questions regarding patient records, call [phone] during business hours, M-F 8:00 AM - 5:00 PM Central Time. Record requests for emergency care only can be directed to [phone] at any time.[facility] Encounters Date Type Department Care Team Description 06/14/2023 11:30 AM CDT External Outreach Division of Nephrology and Hypertension in [place], [place] [address] [place] [address] Jun Farah Jr., D.O. Hypertension And Chronic [...] 06/14/2023 11:33 AM CDT Plan of Treatment Not on file Procedures Procedure Name Priority Date/Time Associated Diagnosis Comments EXTI POTASSIUM, S/P Routine 09/15/2020 7 :39 AM CDT from Last 3 Months or Most Recently Relevant to Health Maintenance
--- OUTSIDE RECORDS SUMMARY | 2023-08-22 09:33 | XMS_ITS ---
Author Organization [facility] Address [address] [place] [address] Care Team Providers Care Staffing Associate Name Role Phone Unavailable Unavailable Unavailable Surgery Details Not on file Complications Check Surgery Details section. Procedure Estimated Blood Loss Check Surgery Details section. Procedure Findings Check Surgery Details section. Procedure Specimens Taken Check Surgery Details section.
--- OUTSIDE RECORDS SUMMARY | 2023-08-22 09:33 | XMS_ITS | Clinical Summary ---
Author Organization [facility] Address [address] [place] [address] Care Team Providers Care Senior Automation Engineer Name Role Phone Vidya Arredondo PA-C Primary Care Provider [phone] Allergies Active Allergy Reactions Criticality Noted Date [...] 2022 05/10/2021, 12/05/2020, 05/14/2020, Additional history exists PHQ-2 (once per calendar year) 2023 INFLUENZA VACCINE (#1) 2023 , 10/22/2019, 10/08/2018, Additional history exists DTAP/TDAP/TD IMMUNIZATION (2 - [...] - 145 mmol/L 05/05/2017 9:47 AM CDT [facility] Potassium 4.3 3.5 - 5.0 mmol/L 05/05/2017 9:47 AM CDT [facility] Chloride 101 98 - 107 mmol/L 05/05/2017 9:47 AM CDT [facility] Carbon Dioxide (CO2) 27 22 - 31 mmol/L 05/05/2017 9:47 AM CDT [facility] Anion Gap 10 5 - 18 mmol/L 05/05/2017 9:47 AM CDT [facility] Glucose 130(H) 70 - 125 mg/dL 05/05/2017 9:47 AM CDT [facility] Calcium 9.3 8.5 - 10.5 mg/dL 05/05/2017 9:47 AM CDT [facility] Urea Nitrogen 15 8 - 22 mg/dL 05/05/2017 9:47 AM CDT [facility] Creatinine 0.77 0.60 - 1.10 mg/dL 05/05/2017 9:47 AM CDT [facility] GFR Estimate If Black >60 >60 mL/min/1.7 3m2 05/05/2017 9:47 AM CDT [facility] GFR Estimate >60 >60 mL/min/1.7 3m2 05/05/2017 9:47 AM CDT [facility] Blood specimen (specimen) STRUCTURE OF RIGHT UPPER LIMB / Unknown Venipuncture / Unknown 05/05/2017 5:20 AM CDT 05/05/2017 9:21 AM CDT Narrative [facility] - 05/05/2017 9:47 AM CDT Fasting Glucose reference range is 70-99 mg/dL per [place] Diabetes Association (ADA) guidelines. Joshua Pena NP LAB - BLOOD ORDERABL ES O LAB [address] [place] [address], [facility] [address] [place] [address] * Mammo Screening digital (bilat) (11/25/2010 10:45 [...] Recently Relevant to Health Maintenance Care Teams Senior Automation Engineer Relationship Specialty Start Date End Date Vidya Arredondo PA-C [facility] [address] [place] [id number] PCP - General 08/25/20
--- NOTE | 2023-08-22 09:35 | W.ANESCHARGE ---
Anesthesia Charges Start Date/Time Anesthesia Start Date: 08/22/23 Anesthesia Start Time: 08:45 Stop Date/Time Anesthesia Stop Date: 08/22/23 Anesthesia Stop Time: 09:30
--- NOTE | 2023-08-22 10:14 | W.ANESCHARGE ---
Anesthesia Charges Start Date/Time Anesthesia Start Date: 08/22/23 Anesthesia Start Time: 08:45 Stop Date/Time Anesthesia Stop Date: 08/22/23 Anesthesia Stop Time: 09:30
== END 2023-08-22 07:27 | disposition home or self-care (01) ==
LOC: OP CLINIC 09:31
PROVIDERS: PCP Physician Assistant Medical; Visit Provider Surgery
DX: K63.5 Polyp of colon (principal); K57.30 Diverticulosis of large intestine without perforation or abscess without bleeding; Z86.010 Personal history of colon polyps
CPT/HCPCS: 00811; 45385; 88305; J2704

== ENCOUNTER 2023-12-13 11:37 | Outpatient (CLI) | payer MEDICARE, MEDICAID, SELFPAY ==
--- OUTSIDE RECORDS SUMMARY | 2023-12-15 10:56 | XMS_ITS | Referral Summary ---
Author Organization [facility] Address [address] [place] [address] Care Team Providers Care Reinsurance Claims Analyst Name Role Phone Unavailable Primary Care Provider Unavailabl e Source Comments Patient records contain information from all sites at [facility]. For routine questions regarding patient records, call [phone] during business hours, M-F 8:00 AM - 5:00 PM Central Time. Record requests for emergency care only can be directed to [phone] at any time.[facility] Encounters Date Type Department Care Team Description 12/01/2023 Refill Division of Nephrology and Hypertension in [place], [place] [address] [place] [address] Jun Farah Jr., Jordan.O. Med Refill 11/08/2023 Refill Division of Nephrology and Hypertension in [place], [place] [address] [place] [address] Jun Farah Jr., D.O. Med Refill 10/26/2023 Refill Division of Nephrology and Hypertension in [place], [place] [address] [place] [address] Jun Farah Jr., D.OLeighton Med Refill from Last 3 Months Allergies No known active allergies Medications acetaminophen (TYLENOL) 500 mg tablet Take 2 tablets by mouth 2 (two) times a day as needed. Pain/fever 3 Active omega-3 fatty acids/fish oil (OMEGA 3 FISH OIL ORAL) Take 1 capsule by mouth daily. 1000mg capsule 3 Active metFORMIN (GLUCOPHAGE) 500 mg tablet Take 0.5 tablets (250 mg total) by mouth daily with breakfast. 45 tablet 3 3 Active gabapentin (NEURONTIN) 100 mg capsule Take 1 capsule (100 mg total) by mouth 2 (two) times a day. 180 capsule 3 3 Active omeprazole (PriLOSEC) [address] capsule Take 1 capsule (20 mg total) by mouth 2 (two) times a day. 180 capsule 3 3 Active allopurinoL (ZYLOPRIM) 100 mg tablet Take 1 tablet (100 mg total) by mouth daily. 90 tablet 3 3 Active potassium citrate (Urocit-K) 10 mEq (1,080 mg) ER tablet Take 2 tablets (20 mEq total) by mouth daily with morning meal. 100 tablet 6 4 10/26/19 25 Active hydroCHLOROthi azide 12.5 mg tablet take 1 tablet by mouth one time daily 90 tablet 2 4 Active sucralfate (Carafate) 1 gram tablet TAKE ONE TABLET BY MOUTH EVERY SIX HOURS 360 tablet 3 4 Active tamsulosin (FLOMAX) 0.4 mg 24 hr capsule Take 1 capsule (0.4 mg total) by mouth daily. use on at first sign of flank pain for easing passage of kidney stones 10 capsule 2 3 11/16/19 24 sucralfate (CARAFATE) 1 gram tablet Take 1 tablet (1 g total) by mouth every 6 (six) hours. 360 tablet 3 3 12/04/19 24 Discontinued Active Problems Problem Noted Date Diagnosed Date 11/10/2021 Hypertensive Chronic Kidney Disease With Stage 1 Through Stage 4 Chronic Kidney Disease, Or Unspecified Chronic Kidney Disease 01/04/2018 Urolithiasis 06/29/2017 Diabetes Mellitus Type 2 12/17/2015 Social History Tobacco Use Types Packs/Day Years Used Date Smoking Tobacco: Never Assessed Nutrition Answer Date Recorded Nutrition: EVOO Fat Source 13 09/03 Nutrition: Servings of Fruits/Vegetables per Day Not on file 09/04/2019 Dental Answer Date Recorded Dental: Regular Dentist Unknown 03/28/19 21 Comments Unknown Sex and Gender Information Value Date Recorded Sex Assigned at Not on file 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
--- OUTSIDE RECORDS SUMMARY | 2023-12-15 10:56 | XMS_ITS | Clinical Summary ---
Author Organization [facility] Address [address] [place] [address] Care Team Providers Care Industrial Gas Servicer Supervisor Name Role Phone Vidya Arredondo PA-C Primary Care Provider [phone] Allergies Active Allergy Reactions Criticality Noted Date Comments Propoxyphene 07/28/2020 Medications allopurinol (ZYLOPRIM) 100 MG tablet Take 100 mg by mouth every morning Active amoxicillin (AMOXIL) 500 MG tablet Take 2,000 mg by mouth daily as needed (1 hour prior to dental appointments) Active gabapentin (NEURONTIN) 100 MG capsule Take 100 mg by mouth 2 times daily Active glipiZIDE (GLUCOTROL) 5 MG tablet Take 5 mg by mouth 2 times daily (before meals) Active hydrochlorothia zide (MICROZIDE) 12.5 MG capsule Take 12.5 mg [...] times daily Active senna (SENOKOT) 8.6 MG tabletIndicatio ns:Endometrial carcinoma (H) Take 1-3 tablets by mouth 2 times daily as needed for constipation 30 tablet Active Active Problems Problem Noted Date Diagnosed [...] School Help Needed Not on file 10/30 Comments No Sex and Gender Information Value Date Recorded Sex Assigned at Not on file Legal Sex Female 2:16 PM CDT Gender Identity Not on file Sexual Orientation [...] of Treatment Not on file Insurance MEDICARE [place]ICAID [place] Care Teams Industrial Gas Servicer Supervisor Relationship Specialty Start Date End Date Vidya Arredondo PA-C [facility] [address] [place] [address] PCP - General 08/25/20
--- OUTSIDE RECORDS SUMMARY | 2023-12-15 10:56 | XMS_ITS | Encounter Summary ---
Author Organization [facility] Address [address] [place] [address] Care Team Providers Care Resolution Specialist Name Role Phone Unavailable Primary Care Provider Unavailabl e Reason for Visit * Reason Comments Med Refill Encounter Details Date Type Department Care Team (Late st Contact Info) Description 11/08/2023 Refill Division of Nephrology and Hypertension in [place], [place] [address] [place] [phone] Jun Farah Jr., D.O. 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
--- OUTSIDE RECORDS SUMMARY | 2023-12-15 10:56 | XMS_ITS | Encounter Summary ---
Author Organization [facility] Address [address] [place] [address] Care Team Providers Care Highway Patrol Officer Name Role Phone Unavailable Primary Care Provider Unavailabl e Reason for Visit * Reason Comments Med Refill Encounter Details Date Type Department Care Team (Late st Contact Info) Description 12/01/2023 Refill Division of Nephrology and Hypertension in [place], [place] [address] [place] [phone] Jun Farah Jr., D.O. 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
--- OUTSIDE RECORDS SUMMARY | 2023-12-15 10:56 | XMS_ITS | Clinical Summary ---
Author Organization [facility] Address [address] [place] [address] Care Team Providers Care Chemist Name Role Phone Unavailable Primary Care Provider Unavailabl e Source Comments Patient records contain information from all sites at [facility]. For routine questions regarding patient records, call [phone] during business hours, M-F 8:00 AM - 5:00 PM Central Time. Record requests for emergency care only can be directed to [phone] at any time.[facility] Allergies No known active allergies Medications acetaminophen [...] Refill Division of Nephrology and Hypertension in [place], [place] [address] [place] [address] Jun Farah Jr., D.O. Med Refill 11/08/2023 Refill Division of Nephrology and Hypertension in [place], [place] [address] [place] [address] Jun Farah Jr., D.O. Med Refill 10/26/2023 Refill Division of Nephrology and Hypertension in [place], [place] [address] [place] [address] Jun Farah Jr. D.O. 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 Gender Identity Not on file Sexual Orientation [...] Date Last Done Comments CT Colonography 1960 Cervical/Vaginal Cancer Screening 1960 Cologuard 1960 Colonoscopy 1960 Colorectal Cancer Screening 1960 Creatinine Level (Kidney Function Test) 1960 Diabetic Office Visit with Foot Exam 1960 Dilated Eye Exam 1960 FIT 1960 HIV Screening 1960 Hemoglobin A1C 1960 Hepatitis C Screening 1960 Lipid (Cholesterol) Screening 1960 Mammogram 1960 Sodium Level 1960 Urine Albumin 1960 Hepatitis B Vaccines (1 of 3 - Risk 3-dose series) 2020 Potassium Level 09/15/2021 09/15/2020 Depression Screening (Annual PHQ-2) 02/07/2023 COVID-19 Vaccine ( season) 2023 09/09/2022, 10/20/2021, 05/10/2021, Additional history exists Influenza Vaccine (#1) 2023 , 10/20/2021, 10/28/2020, Additional history exists Office Visit for Blood Pressure Check / Re-check 06/13/2024 06/14/2023 DTaP,Tdap,and Td Vaccines (2 - Td or Tdap) 04/20/2027 04/19/2017, 05/01/2007 Zoster Vaccines Completed 10/23/2017, 08/07/2017 Pneumococcal vaccine (0-64 years) Completed 09/09/2022, 12/16/2020, 05/07/2014 RSV vaccine - (32-36 weeks) or 60+ years Completed 11/23/2022 IPV Vaccines Aged Out No longer eligi ble based on patient's age to complete this topic Insurance [place]
--- OUTSIDE RECORDS SUMMARY | 2023-12-15 10:56 | XMS_ITS | Clinical Summary ---
Author Organization [facility] Address [place], [place] [address] Care Team Providers Care Architectural Practice Manager Name Role Phone Vidya Arredondo PA-C Primary Care Provider [phone] Allergies Active Allergy Reactions Criticality Noted Date [...] Diagnosed Date Gallstone 04/18/2023 Symptomatic cholelithiasis 04/18/2023 Social History Tobacco Use Types Packs/Day Years [...] (1 of 2) 2010 COVID-19 vaccine series (2023- season) 2023 09/09/2022, 10/20/2021, 05/10/2021, Additional history exists Influenza for age 50-64 10/09/2023 BMI (ht and wt on same day) for age 18+ 04/17/2024 04/18/2023 Pneumococcal series for age 6-64 Aged Out No longer eligible based on patient's age to complete this topic Medical Devices Implanted Type Area Facing Cutting Machine Operator Device Identifier Shelf Expiration Date Model / Serial / Lot Stent Uret [id number] Silhouette Xtraflo - [id number] Implanted:Qty: 1 on 03/18/2010 at [facility] Left: Ureter [employer] [id number] / / [id number] Advance Directives * Full Code (Latest Code Status on File) Date Activated Date Inactivated Comments 05/25/2023 12:19 PM 05/25/2023 9:20 PM Question Answer Comments Code Status Discussion: Discussed Care Teams Architectural Practice Manager Relationship Specialty Start Date End Date Vidya Arredondo PA-C [address] [place] [address] PCP - General Physician Telegraph Printer Mechanic 03/28/23
--- OUTSIDE RECORDS SUMMARY | 2023-12-15 10:56 | XMS_ITS | Encounter Summary ---
Author Organization [facility] Address [address] [place] [address] Care Team Providers Care Vibration Engineer Name Role Phone Unavailable Primary Care Provider Unavailabl e Reason for Visit * Reason Comments Med Refill Encounter Details Date Type Department Care Team (Late st Contact Info) Description 10/26/2023 Refill Division of Nephrology and Hypertension in [place], [place] [address] [place] [phone] Jun Farah Jr., D.O. 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
--- OUTSIDE RECORDS SUMMARY | 2023-12-15 10:56 | XMS_ITS | Referral Summary ---
Author Organization [facility] Address [address] [place] [address] Care Team Providers Care Cook Fishing Vessel Name Role Phone Vidya Arredondo PA-C Primary [...] file Insurance MEDICARE [place]ICAID [place] Care Teams Cook Fishing Vessel Relationship Specialty Start Date End Date Vidya Arredondo PA-C [facility] [address] [place] [address] PCP - General 08/25/20
--- OUTSIDE RECORDS SUMMARY | 2023-12-15 10:56 | XMS_ITS ---
Author Organization [facility] Address [address] [place] [address] Care Team Providers Care Marketing Rotation Associate Name Role Phone Unavailable Unavailable Unavailable Surgery Details Not on file Complications Check Surgery Details section. Procedure Estimated Blood Loss Check Surgery Details section. Procedure Findings Check Surgery Details section. Procedure Specimens Taken Check Surgery Details section.
== END 2023-12-13 11:38 | disposition home or self-care (01) ==
LOC: NFLDREF 12-15 10:54
PROVIDERS: PCP Physician Assistant Medical; Referring Provider Physician Assistant Medical; Visit Provider Internal Medicine Nephrology
DX: N18.1 Chronic kidney disease, stage 1 (principal); E11.22 Type 2 diabetes mellitus with diabetic chronic kidney disease; I10 Essential (primary) hypertension; E78.5 Hyperlipidemia, unspecified; E66.01 Morbid (severe) obesity due to excess calories; B37.2 Candidiasis of skin and nail; N20.9 Urinary calculus, unspecified
CPT/HCPCS: 80061; 80069; 82043; 82570; 83970; 84450; 84460; 84550; 86140

== ENCOUNTER 2024-01-10 11:29 | Outpatient (CLI) | payer MEDICARE, MEDICAID, SELFPAY ==
--- NOTE | 2024-01-10 11:30 | CRLHL7_ITS ---
For Patients: As a result of the Century Cures Act, medical imaging exams and procedure reports are released immediately into your electronic medical record. You may view this report before your referring provider. If you have questions, please contact your health care provider. BILATERAL SCREENING MAMMOGRAM WITH COMPUTER-AIDED DETECTION AND TOMOSYNTHESIS TECHNIQUE: CC and MLO views were obtained. These mammographic images have been obtained using full-field digital technique. These mammographic images were interpreted with the benefit of computer-aided detection. Breast Tomosynthesis was used in this interpretation. COMPARISON FILM: 01/06/23, 12/10/21, 11/25/20. FINDINGS: There are scattered areas of fibroglandular density. IMPRESSION: There is no radiographic evidence for malignancy. ASSESSMENT: BI-RADS Category 2: Benign RECOMMENDATION: Routine screening mammogram in 1 year. A lay language report of this examination will be provided to the patient. Scott Mederos M.D. Diagnostic Radiologist [email or web address] SP/Dictated by: Scott Mederos MD @ 01/11/2024 11:35:00 AM (Electronically Signed)
--- OUTSIDE RECORDS SUMMARY | 2024-01-10 11:31 | XMS_ITS | Clinical Summary ---
Author Organization [facility] Address [address] [place] [address] Care Team Providers Care Footwear Sales Associate Name Role Phone Vidya Arredondo PA-C Primary Care Provider [phone] Allergies Active Allergy Reactions Criticality Noted Date [...] 80 09/15/2020 11:00 AM CDT Temperature 36.1 C (97 F) 09/15/2020 11:00 AM CDT Respiratory Rate 20 09/15/2020 11:5 0 AM CDT Oxygen Saturation 99% 09/15/2020 11: 50 AM CDT Inhaled Oxygen Concentration - - Weight 119.2 kg (262 lb 11.2 oz) 09/15/2020 7:26 AM CDT Height 157.5 cm (5' 2) 09/15/2020 7:26 AM CDT Body Mass Index 48.05 09/15/2020 7:26 AM CDT Plan of Treatment Not on file Insurance MEDICARE [place]ICAID [place] Care Teams Footwear Sales Associate Relationship Specialty Start Date End Date Vidya Arredondo PA-C [place] [address] [address] PCP - General 08/25/20
--- OUTSIDE RECORDS SUMMARY | 2024-01-10 11:31 | XMS_ITS | Referral Summary ---
Author Organization [facility] Address [address] [place] [id number] Care Team Providers Care Python Engineer Name Role Phone Vidya Arredondo PA-C Primary Care Provider [phone] Allergies Active Allergy Reactions Criticality Noted Date [...] file Insurance MEDICARE MEDICAID [place] Care Teams Python Engineer Relationship Specialty Start Date End Date Vidya Arredondo PA-C [place] [id number] [place] [address] PCP - General 08/25/20
--- OUTSIDE RECORDS SUMMARY | 2024-01-10 11:31 | XMS_ITS | Clinical Summary ---
Author Organization [facility] Address [place], [place] [address] Care Team Providers Care Payroll Services Analyst Name Role Phone Vdiya Arredondo PA-C Primary Care Provider [phone] Allergies Active Allergy Reactions Criticality Noted Date [...] 96 05/25/2023 7:00 PM CDT Temperature 36.4 C (97.6 F) 05/25/2023 5:11 PM CDT Respiratory Rate 16 05/25/2023 7:00 PM CDT [...] this topic Medical Devices Implanted Type Area Activity Therapy Teacher Device Identifier Shelf Expiration Date Model / Serial / Lot Stent Uret [id number] Silhouette Xtraflo - [id number] Implanted:Qty: 1 on 03/18/2010 at [facility] Left: [employer] [id number] / / [id number] Advance Directives * Full Code (Latest Code Status on File) Date Activated Date Inactivated Comments 05/25/2023 12:19 PM 05/25/2023 9:20 PM Question Answer Comments Code Status Discussion: Discussed Care Teams Payroll Services Analyst Relationship Specialty Start Date End Date Vidya Arredondo PA-C [address] [place] [id number] PCP - General Physician System Analyst 03/28/23
== END 2024-01-10 11:30 | disposition home or self-care (01) ==
LOC: MAMMO 11:30
PROVIDERS: PCP Physician Assistant Medical; Visit Provider Physician Assistant Medical
DX: Z12.31 Encounter for screening mammogram for malignant neoplasm of breast (principal)
CPT/HCPCS: 77063; 77067

== ENCOUNTER 2024-05-29 11:24 | Outpatient (CLI) | payer MEDICARE, MEDICAID, SELFPAY | END 2024-05-29 11:25 | disposition home or self-care (01) | LOC: NFLDREF 05-31 14:22 | PROVIDERS: PCP Physician Assistant Medical; Referring Provider Physician Assistant Medical; Visit Provider Internal Medicine Nephrology | DX: E11.22 Type 2 diabetes mellitus with diabetic chronic kidney disease (principal); N18.1 Chronic kidney disease, stage 1; I12.9 Hypertensive chronic kidney disease with stage 1 through stage 4 chronic kidney disease, or unspecified chronic kidney disease; E78.5 Hyperlipidemia, unspecified | CPT/HCPCS: 80061; 80069; 82043; 82570; 82728; 83540; 83550; 83970; 84075; 84460; 84550; 87205 ==